=== PATIENT | female | born 1960 | race African-American/Black ===

== ENCOUNTER 2017-03-25 15:43 | Emergency (ER) | payer OTHER ==
[2017-03-25 15:57] VITALS: BMI 43.5
--- NOTE | 2017-03-25 19:51 | PDOC ---
History of Present Illness - General History Source: Patient Exam Limitations: No Limitations - History of Present Illness Initial Comments: 03/25/17 20:40 The patient is a 57 year old female, with a significant past medical history of Morbid Obesity, HTN, DM, Asthma, Atrial fibrillation, Chronic sinusitis, CHF, HLD, Diabetic neuropathy, GERD, and depression who presents to the emergency department with fever, cough and chest tightness for the past 2 days. Patient reports productive cough and increased mucous production. Patient also complains of chest tightness with associated SOB and rapid heart rate. Patient reports she has been experiencing rapid Afib and presents to the ED for further evaluation. Note, patient has been taking Tylenol with no relief. She denies headache or dizziness. She denies fever, chills, abdominal pain, nausea, vomit, diarrhea or constipation. She denies dysuria, frequency, urgency or hematuria. Patient denies sick contacts or recent travel. Social History: Half pack cigarettes per day. No alcohol or drugs reported Past Surgical History: s/p cholecystectomy, left shoulder rotator repair <Elisha Fiore - Last Filed: 03/25/17 20:40> - General History Source: Patient <Cristhian Patton - Last Filed: 03/25/17 22:47> - General Chief Complaint: Respiratory Stated Complaint: FEVER, COUGHING BLOOD Time Seen by Provider: 03/25/17 19:45 Past History <Elisha Fiore - Last Filed: 03/25/17 20:40> - Past Medical History Anemia: No Asthma: Yes Cancer: No Cardiac Disorders: Yes (TACYCARDIA) CVA: No COPD: (ALLERGIC RHINITIS) CHF: No Dementia: No Diabetes: Yes (TYPE 2 with neuropathy) GI Disorders: Yes (GERD; HEMORRHOIDS;POLYPS) Disorders: No HTN: Yes Hypercholesterolemia: Yes Liver Disease: No Seizures: No Thyroid Disease: No - Surgical History Abdominal Surgery: No Cardiac Surgery: No Cholecystectomy: Yes Lung Surgery: No Neurologic Surgery: No Orthopedic Surgery: Yes (L shoulder rotator repair) - Suicide/Smoking/Psychosocial Hx Smoking History: Current every day smoker Have you smoked in the past 12 months: No Number of Cigarettes Smoked Daily: 10 Information on smoking cessation initiated: No 'Breaking Loose' booklet given: 07/04/15 Hx Alcohol Use: Yes Drug/Substance Use Hx: No Substance Use Type: None Hx Substance Use Treatment: No <Cristhian Patton - Last Filed: 03/25/17 22:47> - Past Medical History Allergies/Adverse Reactions: Allergies Allergy/AdvReac Type Severity Reaction Status Date / Time strawberry Allergy Intermediate Rash Verified 04/03/16 20:27 moxifloxacin HCl Allergy Mild Rash Verified 04/03/16 20:27 [From Avelox] [place]-3 acid Ethyl Esters Allergy Verified 04/03/16 20:27 [From Lovaza] duloxetine HCl AdvReac fainting Verified 04/03/16 20:27 [From Cymbalta] Home Medications: Ambulatory Orders Albuterol Sulfate Inhaler - [Ventolin HFA Inhaler -] 2 inh IH Q4H PRN 01/31/14 Aspirin [ASA -] 81 mg PO DAILY 01/31/14 Enalapril Maleate [Vasotec -] 2.5 mg PO BID 01/31/14 Ergocalciferol [Drisdol -] 50,000 unit PO WEEKLY 01/31/14 Glipizide 5 mg PO DAILY 01/31/14 Sertraline HCl [Zoloft] 200 mg PO HS 01/31/14 Simvastatin [Zocor -] 40 mg PO HS 01/31/14 Sitagliptin Phos/Metformin HCl [Janumet 50-500 mg Tablet] 1 tab PO BID 01/31/14 Cyclobenzaprine HCl [Flexeril] 5 mg PO BID 06/28/14 Ascorbic Acid [Vitamin C -] 500 mg PO DAILY 01/02/15 Metoprolol Tartrate [Lopressor -] 50 mg PO BID 04/03/15 Montelukast Na [Singulair -] 10 mg PO HS 11/14/15 Nifedipine [Procardia Xl] 30 mg PO DAILY 12/11/15 Bumetanide [Bumex -] 2 mg PO DAILY 04/03/16 Folic Acid 1 mg PO DAILY 04/03/16 Budesonide/Formeterol Fumarate [SYMBICORT 160/4.5mcg -] 1 inh PO DAILY 05/09/16 Oxycodone HCl/Acetaminophen [Percocet 10-325 mg Tablet] 1 each PO TID PRN #90 tablet MDD 3 03/18/17 Azithromycin [Zithromax -] 250 mg PO UTDICT #6 tab 03/25/17 Cholecalciferol (Vitamin D3) [Vitamin D3 -] 1,000 unit PO DAILY 03/25/17 Review of Systems - Review of Systems Able to Perform ROS?: Yes Comments:: 03/25/17 20:40 CONSTITUTIONAL: Absent: fever, chills, diaphoresis, generalized weakness, malaise, loss of appetite HEENT: +nasal congestion Absent: rhinorrhea, throat pain, throat swelling, difficulty swallowing, mouth swelling, ear pain, eye pain, visual Changes CARDIOVASCULAR: +chest tightness. Absent: syncope, palpitations, irregular heart rate, lightheadedness, peripheral edema RESPIRATORY: +cough +SOB. Absent: dyspnea with exertion, orthopnea, wheezing, stridor, hemoptysis GASTROINTESTINAL: Absent: abdominal pain, abdominal distension, nausea, vomiting, diarrhea, constipation, melena, hematochezia GENITOURINARY: Absent: dysuria, frequency, urgency, hesitancy, hematuria, flank pain, genital pain MUSCULOSKELETAL: Absent: myalgia, arthralgia, joint swelling SKIN: Absent: rash, itching, pallor HEMATOLOGIC/IMMUNOLOGIC: Absent: easy bleeding, easy bruising, lymphadenopathy, frequent infections ENDOCRINE: Absent: unexplained weight gain, unexplained weight loss, heat intolerance, cold intolerance NEUROLOGIC: Absent: headache, focal weakness or paresthesias, dizziness, unsteady gait, seizure, mental status changes, bladder or bowel incontinence PSYCHIATRIC: Absent: anxiety, depression, suicidal or homicidal ideation, hallucinations. <Elisha Fiore - Last Filed: 03/25/17 20:40> *Physical Exam - Vital Signs Last Vital Signs Temp Pulse Resp BP Pulse Ox 98.5 F 112 H 20 132/69 100 03/25/17 15:52 03/25/17 15:52 03/25/17 15:52 03/25/17 15:52 03/25/17 15:52 - Physical Exam Comments: 03/25/17 20:40 GENERAL: Well developed, well nourished. Awake and alert. + Mild distress. HEENT: Normocephalic, atraumatic. PERRLA, EOMI. No conjunctival pallor. Sclerae are non -icteric. Moist mucous membranes. Oropharynx is clear. +Nasal congestion. NECK: Supple. Full ROM. No JVD. Carotid pulses 2+ and symmetric, without bruits. No thyromegaly. No lymphadenopathy. CARDIOVASCULAR:+ Tachycardic. +Irregularly irregular. No murmurs, rubs, or gallops. Distal pulses are 2+ and symmetric. PULMONARY: +Decreased breath sounds bilaterally. No evidence of respiratory distress. Lungs clear to auscultation bilaterally. No wheezing, rales or rhonchi. ABDOMINAL: +Obese. Soft. Non-tender. Non-distended. No rebound or guarding. No organomegaly. Normoactive bowel sounds. MUSCULOSKELETAL Normal range of motion at all joints. No bony deformities or tenderness. No CVA tenderness. EXTREMITIES: No cyanosis. No clubbing. No edema. No calf tenderness. SKIN: Warm and dry. Normal capillary refill. No rashes. No jaundice. NEUROLOGICAL: Alert, awake, appropriate. Cranial nerves 2-12 intact. No deficits to light touch and temperature in face, upper extremities and lower extremities. No motor deficits in the in face, upper extremities and lower extremities. Normoreflexic in the upper and lower extremities. Normal speech. Toes are downgoing bilaterally. Gait is normal without ataxia. PSYCHIATRIC: Cooperative. Good eye contact. Appropriate mood and affect. <Elisha Fiore - Last Filed: 03/25/17 20:40> - Vital Signs Last Vital Signs Temp Pulse Resp BP Pulse Ox 98.5 F 112 H 20 132/69 100 03/25/17 15:52 03/25/17 15:52 03/25/17 15:52 03/25/17 15:52 03/25/17 15:52 <Cristhian Patton - Last Filed: 03/25/17 22:47> Heart Score/ECG Review #1 03/25/17 20:41 ECG Reviewed by Abdi Vega. rate 117 bpm Atrial fibrillation with RVR with premature ventricular or aberrantly conducted complexes Abnormal ECG <Elisha Fiore - Last Filed: 03/25/17 20:40> ED Treatment Course - Medications Given in the ED: ED Medications Discontinued Medications Generic Name Dose Route Start Last Admin Trade Name Freq PRN Reason Stop Dose Admin Magnesium Sulfate 1 gm 03/25/17 20:16 03/25/17 20:32 Magnesium Sulfate IVPB 03/25/17 20:17 1 gm ONCE ONE Administration Methylprednisolone Sodium Succinate 125 mg 03/25/17 20:14 03/25/17 20:32 Solu-Medrol - IVPB 03/25/17 20:15 125 mg ONCE ONE Administration <Elisha Fiore - Last Filed: 03/25/17 20:40> - LABORATORY CBC & Chemistry Diagram: 03/25/17 20:00 03/25/17 20:00 <Cristhian Patton - Last Filed: 03/25/17 22:47> Medical Decision Making - Medical Decision Making 03/25/17 22:43 Dr. Patton: The scribe's documentation has been prepared under my direction and personally reviewed by me in its entirery. I confirm that the note above accurately reflects all work, treatment, procedures, and medical decision making performed by me. <Cristhian Patton - Last Filed: 03/25/17 22:47> *DC/Admit/Observation/Transfer - Attestations Scribe Attestion: 03/25/17 20:41 Documentation prepared by Elisha Fiore, acting as medical imaging technician for Cristhian Patton DO. <Elisha Fiore - Last Filed: 03/25/17 20:40> - Discharge Dispostion Admit: No <Cristhian Patton - Last Filed: 03/25/17 22:47> Diagnosis at time of Disposition: Fever Qualifiers: Fever type: unspecified Qualified Code(s): R50.9 - Fever, unspecified Acute bronchitis Qualifiers: Bronchitis organism: unspecified organism Qualified Code(s): J20.9 - Acute bronchitis, unspecified - Discharge Dispostion Disposition: HOME Condition at time of disposition: Stable - Prescriptions Prescriptions: Azithromycin [Zithromax -] 250 mg PO UTDICT #6 tab - Referrals Referrals: Karen James MD [Primary Care Provider] - - Patient Instructions Printed Discharge Instructions: DI for Acute Bronchitis Additional Instructions: Please follow up with your doctor for follow up by Thursday. Drink plenty of fluids. Take medication as directed. Tylenol or Motrin for fever. - Post Discharge Activity Forms/Work/School Notes: Back to Work
[2017-03-25] MEDS ORDERED: SODIUM CHLORIDE 1,000 ML IV STA (19:52)
[2017-03-25] MEDS ORDERED: methylPREDNISolone NA SUCC 125 MG/2 ML VIAL IVPB ONE (20:14)
[2017-03-25] MEDS ORDERED: ALBUTEROL SO4 2.5/IPRATROPIUM 0.5 INH SOL 3 ML VIAL.NEB. NEB STA (20:15)
[2017-03-25] MEDS ORDERED: MAGNESIUM SULF 50% (8.12 MEQ/2 ML-1 GM VIAL) IVPB ONE (20:16)
[2017-03-25] MEDS ORDERED: MAGNESIUM SULF 50% (8.12 MEQ/2 ML-1 GM VIAL) ONE (20:26)
[2017-03-25] MEDS ORDERED: methylPREDNISolone NA SUCC 125 MG/2 ML VIAL ONE (20:27)
[2017-03-25 20:44] LABS: EOSINOPHIL 0.7 % (0-4.5); MCH 30.9 pg (25.7-33.7); MCHC 33.3 g/dl (32.0-36.0); MEAN CELL VOLUME 92.7 fl (80-96); MEAN PLT VOLUME 10.3 fl (7.5-11.1); NEUTROPHILS 58.6 % (42.8-82.8); PLATELET COUNT 226 K/MM3 (134-434); RDW 15.7 % (11.6-15.6); WHITE BLOOD COUNT 9.8 K/mm3 (4.0-10.0)
[2017-03-25 20:48] LABS: URINE APPEARANCE CLEAR; URINE BILIRUBIN NEGATIVE (NEGATIVE); URINE BLOOD NEGATIVE (NEGATIVE); URINE COLOR YELLOW; URINE GLUCOSE (UA) NEGATIVE (NEGATIVE); URINE KETONE NEGATIVE (NEGATIVE); URINE NITRITE NEGATIVE (NEGATIVE); URINE PROTEIN NEGATIVE (NEGATIVE); URINE UROBILINOGEN NEGATIVE mg/dL (0.2-1.0)
[2017-03-25 20:57] LABS: INR 1.2 (0.82-1.09); PROTHROMBIN TIME (PATIENT) 13.6 SEC (9.98-11.88)
[2017-03-25 21:09] LABS: ALBUMIN 3.5 g/dl (3.4-5.0); ALK PHOS 119 U/L (45-117); ANION GAP 7 (8-16); BILIRUBIN,TOTAL 0.5 mg/dL (0.2-1.0); CALCIUM 9.3 mg/dL (8.5-10.1); CO2 28 mmol/L (21-32); CPK 96 IU/L (26-192); CREATININE 0.9 mg/dL (0.55-1.02); GLUCOSE,RANDOM 134 mg/dL (74-106); MAGNESIUM 1.7 mg/dL (1.8-2.4); SGOT/AST 29 U/L (15-37); SGPT/ALT 35 U/L (12-78); TOT PROT 8.2 g/dl (6.4-8.2)
[2017-03-25 21:11] LABS: TROPONIN I < 0.02 ng/ml (0.00-0.05)
[2017-03-25] MEDS ORDERED: AZITHROMYCIN 250 MG TABLET PO STA (21:52)
[2017-03-25] MEDS ORDERED: AZITHROMYCIN 250 MG TABLET ONE (21:56)
[2017-03-25] MEDS ORDERED: CEFTRIAXONE 50 ML ONE (21:56)
[2017-03-25 22:49] LABS: URINE LEUK ESTERASE Negative (NEGATIVE)
[2017-03-25 22:55] VITALS: BP 129/71; PULSE 96; TEMP 97.5
--- NOTE | 2017-03-26 13:06 | EKG ---
Test Reason : Blood Pressure : / mmHG Vent. Rate : 117 BPM Atrial Rate : 110 BPM P-R Int : 000 ms QRS Dur : 070 ms QT Int : 334 ms P-R-T Axes : 000 066 091 degrees QTc Int : 465 ms ATRIAL FIBRILLATION WITH RAPID VENTRICULAR RESPONSE WITH PREMATURE VENTRICULAR OR ABERRANTLY CONDUCTED COMPLEXES ABNORMAL ECG WHEN COMPARED WITH ECG OF 05-JAN-2014 14:24, ATRIAL FIBRILLATION HAS REPLACED SINUS RHYTHM Confirmed by WILMA DESAI MD ([id number]) on 03/26/2017 1:05:32 PM Referred By: Confirmed By:WILMA DESAI MD
== END 2017-03-25 22:55 | disposition home or self-care (01) ==
LOC: JER 15:43
PROC: 3E0337Z Introduction of Electrolytic and Water Balance Substance into Peripheral Vein, Percutaneous Approach (ICD-10-PCS; principal; 2017-03-25)
PROC: 3E0F7GC Introduction of Other Therapeutic Substance into Respiratory Tract, Via Natural or Artificial Opening (ICD-10-PCS; 2017-03-25)
PROC: 3E03329 Introduction of Other Anti-infective into Peripheral Vein, Percutaneous Approach (ICD-10-PCS; 2017-03-25)
PROC: 3E0333Z Introduction of Anti-inflammatory into Peripheral Vein, Percutaneous Approach (ICD-10-PCS; 2017-03-25)
PROC: 3E033GC Introduction of Other Therapeutic Substance into Peripheral Vein, Percutaneous Approach (ICD-10-PCS; 2017-03-25)
DX: J20.9 Acute bronchitis, unspecified (principal)
CPT/HCPCS: 36415; 71020-TC; 80053; 81003; 82550; 83605; 83735; 83880; 84484; 85025; 85379; 85610; 87040; 87086; 87804; 93005; 93010; 99284-25

== ENCOUNTER 2017-04-09 22:16 | Inpatient (IN) | payer OTHER ==
[2017-04-09] MEDS ORDERED: ACETAMINOPHEN 500 MG TABLET (FP) PO ONE (23:17)
[2017-04-09] MEDS ORDERED: ACETAMINOPHEN 325 MG TABLET (FP) ONE (23:26)
--- NOTE | 2017-04-10 00:06 | PDOC ---
History of Present Illness - General Chief Complaint: Cold Symptoms Stated Complaint: FEVER Time Seen by Provider: 04/09/17 23:03 History Source: Patient, Family (Son) Exam Limitations: No Limitations - History of Present Illness Initial Comments: 04/10/17 00:01 57yo Female patient with extensive PmHx: Morbid Obesity, A-fib, Asthma, GERD, depression, HLD, CHF, DM, HTN, Diabetic Neuropathy and Chronic sinusitis presents to ED c/o cough, fever, weakness, decreased appetite, and SOB since this past Thursday. Patient was recently seen in this ED for similar symptoms on 03/25/2017, and Dx: Bronchitis; sent home on Z-. Patient reports improvement in symptoms, but return worse on Thursday while cleaning her house. Associated Chills and back pain. Patient denies CP, Abd pain, n/v/d, constipation, confusion, or any other complaints at this time. Humphrey (Son) . Timing/Duration: reports: week Severity: reports: moderate Episode Description: See HPI Possible Cause: Yes: occasional episodes Modifying Factors: improves with: albuterol inhaler, albuterol nebulizer, antibiotics, rest Associated Symptoms: reports: cough, shortness of breath Past History - Travel Traveled outside of the country in the last 30 days: No Close contact w/someone who was outside of country & ill: No - Past Medical History Allergies/Adverse Reactions: Allergies Allergy/AdvReac Type Severity Reaction Status Date / Time strawberry Allergy Intermediate Rash Verified 04/09/17 22:36 moxifloxacin HCl Allergy Mild Rash Verified 04/09/17 22:36 [From Avelox] [place]-3 acid Ethyl Esters Allergy Verified 04/09/17 22:36 [From Lovaza] duloxetine HCl AdvReac fainting Verified 04/09/17 22:36 [From Cymbalta] Home Medications: Ambulatory Orders Albuterol Sulfate Inhaler - [Ventolin HFA Inhaler -] 2 inh IH Q4H PRN 01/31/14 Aspirin [ASA -] 81 mg PO DAILY 01/31/14 Enalapril Maleate [Vasotec -] 2.5 mg PO BID 01/31/14 Ergocalciferol [Drisdol -] 50,000 unit PO WEEKLY 01/31/14 Glipizide 5 mg PO DAILY 01/31/14 Sertraline HCl [Zoloft] 200 mg PO HS 01/31/14 Simvastatin [Zocor -] 40 mg PO HS 01/31/14 Sitagliptin Phos/Metformin HCl [Janumet 50-500 mg Tablet] 1 tab PO BID 01/31/14 Cyclobenzaprine HCl [Flexeril] 5 mg PO BID 06/28/14 Ascorbic Acid [Vitamin C -] 500 mg PO DAILY 01/02/15 Metoprolol Tartrate [Lopressor -] 50 mg PO BID 04/03/15 Montelukast Na [Singulair -] 10 mg PO HS 11/14/15 Nifedipine [Procardia Xl] 30 mg PO DAILY 12/11/15 Bumetanide [Bumex -] 2 mg PO DAILY 04/03/16 Folic Acid 1 mg PO DAILY 04/03/16 Budesonide/Formeterol Fumarate [SYMBICORT 160/4.5mcg -] 1 inh PO DAILY 05/09/16 Oxycodone HCl/Acetaminophen [Percocet 10-325 mg Tablet] 1 each PO TID PRN #90 tablet MDD 3 03/18/17 Azithromycin [Zithromax -] 250 mg PO UTDICT #6 tab 03/25/17 Cholecalciferol (Vitamin D3) [Vitamin D3 -] 1,000 unit PO DAILY 03/25/17 Anemia: No Asthma: Yes Cancer: No Cardiac Disorders: Yes (TACYCARDIA) CVA: No COPD: Yes (ALLERGIC RHINITIS) CHF: No Dementia: No Diabetes: Yes (TYPE 2 with neuropathy) GI Disorders: Yes (GERD; HEMORRHOIDS;POLYPS) Disorders: No HTN: Yes Hypercholesterolemia: Yes Liver Disease: No Seizures: No Thyroid Disease: No - Surgical History Abdominal Surgery: No Cardiac Surgery: No Cholecystectomy: Yes Lung Surgery: No Neurologic Surgery: No Orthopedic Surgery: Yes (L shoulder rotator repair) - Suicide/Smoking/Psychosocial Hx Smoking History: Current every day smoker Have you smoked in the past 12 months: Yes Number of Cigarettes Smoked Daily: 20 Information on smoking cessation initiated: No 'Breaking Loose' booklet given: 07/04/15 Hx Alcohol Use: No Drug/Substance Use Hx: No Substance Use Type: None Hx Substance Use Treatment: No Respiratory Specific PMHX - Complaint Specific PMHX Angina: No Bronchitis: Yes Pneumonia: No Pulmonary Embolus: No TB (Tuberculosis): No Review of Systems - Review of Systems Able to Perform ROS?: Yes Is the patient limited Urdu proficient: No Constitutional: Yes: Chills, Fever, Weakness Respiratory: Yes: Cough, Shortness of Breath, Productive cough. No: Stridor, Wheezing Cardiac (ROS): No: Chest Pain, Chest Tightness ABD/GI: No: Diarrhea, Nausea, Vomiting All Other Systems: Reviewed and Negative *Physical Exam - Vital Signs Last Vital Signs Temp Pulse Resp BP Pulse Ox 100.2 F H 108 H 22 159/94 88 L 04/09/17 22:34 04/09/17 22:34 04/09/17 22:34 04/09/17 22:34 04/09/17 22:34 - Physical Exam General Appearance: Yes: Nourished, Appropriately Dressed, Mild Distress. No: Apparent Distress, Moderate Distress, Severe Distress HEENT: positive: EOMI, BERT, Normal ENT Inspection, Normal Voice, Symmetrical, TMs Normal, Pharynx Normal. negative: Pharyngeal Erythema, Tonsillar Exudate, Tonsillar Erythema, TM Bulging, TM Dull, TM Erythema Neck: positive: Trachea midline, Supple. negative: Rigid, Stridor, Lymphadenopathy (R), Lymphadenopathy (L), Rigidity, Tender lateral, Tender midline Respiratory/Chest: positive: Decreased Breath Sounds, Crackles. negative: Chest Tender, Lungs Clear, Normal Breath Sounds, Respiratory Distress, Accessory Muscle Use, Labored Respiration, Paradoxal Breathing, Stridor, Wheezing Cardiovascular: positive: Regular Rhythm, Tachycardia Gastrointestinal/Abdominal: positive: Normal Bowel Sounds, Soft. negative: Distended, Guarding, Rebound, Tenderness Musculoskeletal: positive: Normal Inspection. negative: CVA Tenderness, Vertebral Tenderness Extremity: positive: Normal Capillary Refill, Normal Inspection, Normal Range of Motion. negative: Pedal Edema, Swelling, Calf Tenderness, Erythema, Inflammation Integumentary: positive: Normal Color, Dry, Warm. negative: Erythema, Diaphoresis, Moist, Hives, Rash, Swelling Neurologic: positive: art specialist II-XII NML intact, Fully Oriented, Alert, Normal Mood/ Affect, Normal Response, Motor Strength 5/5 ED Treatment Course - LABORATORY CBC & Chemistry Diagram: 04/10/17 00:10 04/10/17 00:10 - RADIOLOGY Radiology Studies Ordered: Category Date Time Status CHEST CT WITH CONTRAST [CT] Stat CT Scan 04/09/17 23:25 Ordered - Medications Given in the ED: ED Medications Discontinued Medications Generic Name Dose Route Start Last Admin Trade Name Corinne PRN Reason Stop Dose Admin Acetaminophen 1,000 mg 04/09/17 23:17 04/09/17 23:51 Tylenol - PO 04/09/17 23:18 1,000 mg ONCE ONE Administration *DC/Admit/Observation/Transfer Diagnosis at time of Disposition: Acute respiratory failure with hypoxia Pneumonia Qualifiers: Pneumonia type: due to unspecified organism Laterality: bilateral Lung location : lower lobe of lung Qualified Code(s): J18.9 - Pneumonia, unspecified organism ; J18.9 - Pneumonia, unspecified organism - Discharge Dispostion Condition at time of disposition: Fair Admit: Yes - Referrals Referrals: Karen James MD [Primary Care Provider] -
[2017-04-10] MEDS ORDERED: ALBUTEROL SO4 2.5/IPRATROPIUM 0.5 INH SOL 3 ML VIAL.NEB. NEB ONE ×2 (00:07→00:29)
[2017-04-10] MEDS ORDERED: methylPREDNISolone NA SUCC 125 MG/2 ML VIAL IVPUSH ONE (00:07)
[2017-04-10 00:18] LABS: BASOPHIL 1.1 % (0-2.0); EOSINOPHIL 0.4 % (0-4.5); MCH 30.5 pg (25.7-33.7); MCHC 33.9 g/dl (32.0-36.0); MEAN CELL VOLUME 90.2 fl (80-96); MEAN PLT VOLUME 8.6 fl (7.5-11.1); PLATELET COUNT 224 K/MM3 (134-434); RDW 15.7 % (11.6-15.6); WHITE BLOOD COUNT 8.6 K/mm3 (4.0-10.0)
[2017-04-10] MEDS ORDERED: methylPREDNISolone NA SUCC 125 MG/2 ML VIAL ONE (00:30)
[2017-04-10 00:47] LABS: ALBUMIN 3.1 g/dl (3.4-5.0); ANION GAP 11 (8-16); CALCIUM 8.2 mg/dL (8.5-10.1); CO2 23 mmol/L (21-32); CREATININE 0.6 mg/dL (0.55-1.02); GLUCOSE,RANDOM 135 mg/dL (74-106); SGOT/AST 14 U/L (15-37); SGPT/ALT 38 U/L (12-78)
[2017-04-10 00:50] LABS: ALK PHOS 125 U/L (45-117); BILIRUBIN,TOTAL 0.9 mg/dL (0.2-1.0); TOT PROT 7.1 g/dl (6.4-8.2)
--- NOTE | 2017-04-10 01:57 | PDOC ---
*Physical Exam - Vital Signs Last Vital Signs Temp Pulse Resp BP Pulse Ox 100.2 F H 108 H 22 159/94 88 L 04/09/17 22:34 04/09/17 22:34 04/09/17 22:34 04/09/17 22:34 04/09/17 22:34 - Physical Exam Comments: 04/10/17 01:47 Low-grade fever, slight tachycardia, relative hypoxia Agree with remainder exam ED Treatment Course - LABORATORY CBC & Chemistry Diagram: 04/10/17 00:10 04/10/17 00:10 - ADDITIONAL ORDERS Additional order review: Laboratory Results 04/10/17 04/10/17 04/10/17 00:13 00:13 00:10 Sodium 141 Potassium 3.4 L Chloride 107 Carbon Dioxide 23 Anion Gap 11 BUN 7 D Creatinine 0.6 D Creat Clearance w eGFR > 60 Random Glucose 135 H Lactic Acid 0.9 Calcium 8.2 L Total Bilirubin 0.9 D AST 14 L D ALT 38 Alkaline Phosphatase 125 H Troponin I 0.03 B-Natriuretic Peptide 846.08 H Total Protein 7.1 Albumin 3.1 L 04/10/17 00:10 RBC 4.09 MCV 90.2 MCHC 33.9 RDW 15.7 H MPV 8.6 D Neutrophils % 76.0 D Lymphocytes % 17.6 D Monocytes % 4.9 Eosinophils % 0.4 Basophils % 1.1 - Medications Given in the ED: ED Medications Discontinued Medications Generic Name Dose Route Start Last Admin Trade Name Freq PRN Reason Stop Dose Admin Acetaminophen 1,000 mg 04/09/17 23:17 04/09/17 23:51 Tylenol - PO 04/09/17 23:18 1,000 mg ONCE ONE Administration Albuterol/Ipratropium 1 amp 04/10/17 00:07 04/10/17 00:31 Duoneb - NEB 04/10/17 00:08 1 amp ONCE ONE Administration Methylprednisolone Sodium Succinate 125 mg 04/10/17 00:07 04/10/17 00:31 Solu-Medrol - IVPUSH 04/10/17 00:08 125 mg ONCE ONE Administration Medical Decision Making - Medical Decision Making 04/10/17 01:47 Patient seen and evaluated with the nurse practitioner. I agree with the overall evaluation, assessment, and management with the following summary of visit: 57-year-old female with multiple medical problems including asthma and CHF presents with worsening dyspnea in the setting of recently being treated for bronchitis with a Z-Sharath. Respiratory workup including labs, chest CT, EKG nebs, steroids, antipyretics Likely admission *DC/Admit/Observation/Transfer Diagnosis at time of Disposition: Asthma, Acute respiratory failure with hypoxia - Discharge Dispostion Condition at time of disposition: Fair
[2017-04-10] MEDS ORDERED: cefTRIAXone 1 GM/50 ML BAG (PRE-DOCKED) IVPB ONE (03:14)
[2017-04-10] MEDS ORDERED: AZITHROMYCIN IVPB 500 MG in DEXTROSE 5%-WATER - 250 ML IVPB ONE (03:14)
[2017-04-10] MEDS ORDERED: FUROSEMIDE 40 MG/4 ML INJECTABLE VIAL IVPUSH ONE (03:15)
[2017-04-10] MEDS ORDERED: AZITHROMYCIN IVPB 250 ML IVPB ONE (03:20)
[2017-04-10] MEDS ORDERED: cefTRIAXone SODIUM 1 GM VIAL ONE (03:21)
[2017-04-10] MEDS ORDERED: FUROSEMIDE 40 MG/4 ML INJECTABLE VIAL ONE (03:21)
--- NOTE | 2017-04-10 06:41 | HP ---
CHIEF COMPLAINT: SOB, Cough PCP: Dr Karen Clemente HISTORY OF PRESENT ILLNESS: This is a 57 y/o woman with a significant past medical history of: HTN, HLD, NIDDM, Afib (no AC), Asthma, MERT, Morbid Obesity. Who presents to the ED with increased SOB, DUARTE, cough, fever, and chills x several days worse now. Patient reports cleaning out her home for inspection, with increased exposure to dust. Patient reports using non-toxic hand hardener and keeping the room well ventilated. However, she notes her breathing became more labored last night forcing her to come in. Patient was recently treated for Bronchitis 03/22 completed Z-jie. Patient denies dizziness, CP, palpitations, AP, N/V/D, constipation, dysuria. Patient reports being up to date with- Influenza Vaccine, Pnuemoccal Vaccines. ER course was notable for: (1) Vital Signs- T Max 100.2, P 108, Spo2 88% (2) CT Chest- Bilateral lower lobe pneumonia (3) BNP 846 Recent Travel: None PAST MEDICAL HISTORY: See HPI PAST SURGICAL HISTORY: Social History: Smoking: Current Smoker Alcohol: None Drugs: None Lives with family, Independent Family History: Allergies strawberry Allergy (Intermediate, Verified 04/09/17 22:36) Rash moxifloxacin HCl [From Avelox] Allergy (Mild, Verified 04/09/17 22:36) Rash [place]-3 acid Ethyl Esters [From Lovaza] Allergy (Verified 04/09/17 22:36) duloxetine HCl [From Cymbalta] Adverse Reaction (Verified 04/09/17 22:36) fainting HOME MEDICATIONS: Home Medications Medication Instructions Recorded Albuterol Sulfate Inhaler - 2 inh IH Q4H PRN 01/31/14 [Ventolin HFA Inhaler -] Aspirin [ASA -] 81 mg PO DAILY 01/31/14 Enalapril Maleate [Vasotec -] 2.5 mg PO BID 01/31/14 Ergocalciferol [Drisdol -] 50,000 unit PO WEEKLY 01/31/14 Glipizide 5 mg PO DAILY 01/31/14 Sertraline HCl [Zoloft] 200 mg PO HS 01/31/14 Simvastatin [Zocor -] 40 mg PO HS 01/31/14 Sitagliptin Phos/Metformin HCl 1 tab PO BID 01/31/14 [Janumet 50-500 mg Tablet] Cyclobenzaprine HCl [Flexeril] 5 mg PO BID 06/28/14 Ascorbic Acid [Vitamin C -] 500 mg PO DAILY 01/02/15 Metoprolol Tartrate [Lopressor -] 50 mg PO BID 04/03/15 Montelukast Na [Singulair -] 10 mg PO HS 11/14/15 Nifedipine [Procardia Xl] 30 mg PO DAILY 12/11/15 Bumetanide [Bumex -] 2 mg PO DAILY 04/03/16 Folic Acid 1 mg PO DAILY 04/03/16 Budesonide/Formeterol Fumarate 1 inh PO DAILY 05/09/16 [SYMBICORT 160/4.5mcg -] Oxycodone HCl/Acetaminophen 1 each PO TID PRN #90 tablet MDD 3 03/18/17 [Percocet 10-325 mg Tablet] Azithromycin [Zithromax -] 250 mg PO UTDICT #6 tab 03/25/17 Cholecalciferol (Vitamin D3) 1,000 unit PO DAILY 03/25/17 [Vitamin D3 -] REVIEW OF SYSTEMS CONSTITUTIONAL: fever, chills Absent: diaphoresis, generalized weakness, malaise, loss of appetite, weight change HEENT: Absent: rhinorrhea, nasal congestion, throat pain, throat swelling, difficulty swallowing, mouth swelling, ear pain, eye pain, visual changes CARDIOVASCULAR: peripheral edema Absent: chest pain, syncope, palpitations, irregular heart rate, lightheadedness RESPIRATORY: cough, shortness of breath, dyspnea with exertion Absent: orthopnea, wheezing, stridor, hemoptysis GASTROINTESTINAL: Absent: abdominal pain, abdominal distension, nausea, vomiting, diarrhea, constipation, melena, hematochezia GENITOURINARY: Absent: dysuria, frequency, urgency, hesitancy, hematuria, flank pain, genital pain MUSCULOSKELETAL: Absent: myalgia, arthralgia, joint swelling, back pain, neck pain SKIN: Absent: rash, itching, pallor HEMATOLOGIC/IMMUNOLOGIC: Absent: easy bleeding, easy bruising, lymphadenopathy, frequent infections ENDOCRINE: Absent: unexplained weight gain, unexplained weight loss, heat intolerance, cold intolerance NEUROLOGIC: Absent: headache, focal weakness or paresthesias, dizziness, unsteady gait, seizure, mental status changes, bladder or bowel incontinence PSYCHIATRIC: Absent: anxiety, depression, suicidal or homicidal ideation, hallucinations. PHYSICAL EXAMINATION Vital Signs - 24 hr 04/10/17 04/10/17 04:37 06:00 Temperature 97.5 F L 97.4 F L Pulse Rate [ 104 H 104 H Left Radial] Respiratory 18 18 Rate Blood Pressure 148/90 160/93 [Left Arm] O2 Sat by Pulse 95 95 Oximetry (%) GENERAL: Awake, alert, and fully oriented, in mild resp distress. HEAD: Normal with no signs of trauma. EYES: Pupils equal, round and reactive to light, extraocular movements intact, sclera anicteric, conjunctiva clear. No lid lag. EARS, NOSE, THROAT: Ears normal, nares patent, oropharynx clear without exudates. Dry mucous membranes. NECK: Normal range of motion, supple without lymphadenopathy, JVD, or masses. LUNGS: Breath sounds diminished bilaterally. + wheezes, +crackles. No accessory muscle use. HEART: Irregular rate and rhythm, normal S1 and S2 without murmur, rub or gallop. ABDOMEN: Obese, Soft, nontender, not distended, normoactive bowel sounds, no guarding, no rebound, no masses. No hepatomegaly or splenomegaly. MUSCULOSKELETAL: Normal range of motion at all joints. No bony deformities or tenderness. No CVA tenderness. UPPER EXTREMITIES: 2+ pulses, warm, well-perfused. No cyanosis. No clubbing. No peripheral edema. LOWER EXTREMITIES: 2+ pulses, warm, well-perfused. No calf tenderness. +2 B/L peripheral edema. NEUROLOGICAL: Cranial nerves II-XII intact. Normal speech. Normal gait. PSYCHIATRIC: Cooperative. Good eye contact. Appropriate mood and affect. SKIN: Warm, dry, normal turgor, no rashes or lesions noted, normal capillary refill. ASSESSMENT/PLAN: This is a 57 y/o woman with a PMHx of: HTN, HLD, NIDDM, Afib (no AC), CHF, Asthma, MERT, Severe Obesity. Admitted for Bilateral Lower Pneumonia secondary to Failed Outpatient Therapy, Acute Respiratory Failure, Hypoxia for further evaluation of their emergent condition. Plan: 1. Pneumonia - Failed Outpatient Therapy - CT Chest- B/L lower lobe infiltrates, No PE - [id number] 0 - Blood Cultures-pending - Ordered Influenza Swab-pending - Legionella- pending - Ceftriaxone, Azithromycin given in ED - Will continue Ceftriaxone and add Doxycycline for anti-MRSA, anti pseudomonal coverage, until culture results - Appreciate ID Consult - Appreciate Pulmonology Consult - Continue O2 - Monitor vitals - Repeat CBCD, BMP tomorrow 2. Acute Respiratory Failure//Hypoxia - See above - ABG pending - O2 3. Asthma Exacerbation - Duonebs - Glucocorticoids - Spo2 - Peak flow 3. HTN//HLD//Afib//CHF - Continue home meds - EKG-pending 4. NIDDM - BGMs - ISS - Hold home med 2/2 IV contrast for CTA - Monitor renal function 5. MERT - CPAP HS 6. FEN - Tolerates PO fluids - Replete lytes prn - Low Na, Diabetic Diet 7. DVT Prophylaxis - OOB - Heparin SQ Code Status: Full Code Dispo: Requires Inpatient Care Problem List - Problem (1) Pneumonia Code(s): J18.9 - PNEUMONIA, UNSPECIFIED ORGANISM Qualifiers: Pneumonia type: due to unspecified organism Laterality: bilateral Lung location: lower lobe of lung Qualified Code(s): J18.9 - Pneumonia, unspecified organism; J18.9 - Pneumonia, unspecified organism (2) Sepsis Code(s): A41.9 - SEPSIS, UNSPECIFIED ORGANISM (3) Acute respiratory failure with hypoxia Code(s): J96.01 - ACUTE RESPIRATORY FAILURE WITH HYPOXIA (4) Fever Code(s): R50.9 - FEVER, UNSPECIFIED (5) Asthma Code(s): J45.909 - UNSPECIFIED ASTHMA, UNCOMPLICATED (6) Acute exacerbation of congestive heart failure Code(s): I50.9 - HEART FAILURE, UNSPECIFIED (7) Diabetes mellitus treated with oral medication Code(s): E11.9 - TYPE 2 DIABETES MELLITUS WITHOUT COMPLICATIONS (8) Diabetic neuropathy Code(s): E11.40 - TYPE 2 DIABETES MELLITUS WITH DIABETIC NEUROPATHY, UNSP (10) Obesity, morbid, BMI 50 or higher Code(s): E66.01 - MORBID (SEVERE) OBESITY DUE TO EXCESS CALORIES (11) HLD (hyperlipidemia) Code(s): E78.5 - HYPERLIPIDEMIA, UNSPECIFIED (12) A-fib Code(s): I48.91 - UNSPECIFIED ATRIAL FIBRILLATION (13) Chronic pain Code(s): G89.29 - OTHER CHRONIC PAIN (14) Chronic use of opiate for therapeutic purpose Code(s): Z79.899 - OTHER ALF (CURRENT) DRUG THERAPY (16) Sleep apnea Code(s): G47.30 - SLEEP APNEA, UNSPECIFIED (17) Nicotine dependence Code(s): F17.200 - NICOTINE DEPENDENCE, UNSPECIFIED, UNCOMPLICATED Visit type - Emergency Visit Emergency Visit: Yes ED Registration Date: 04/10/17 Care time: The patient presented to the Emergency Department on the above date and was hospitalized for further evaluation of their emergent condition. - New Patient This patient is new to me today: Yes Date on this admission: 04/10/17 - Critical Care Critical Care patient: No
[2017-04-10] MEDS: HEPARIN NA (PORCINE) 5,000 UNITS/ML 1ML VIAL SQ SCH ×3 (06:51→21:45)
[2017-04-10] MEDS: ALBUTEROL SO4 2.5/IPRATROPIUM 0.5 INH SOL 3 ML VIAL.NEB. NEB SCH ×3 (06:51→17:26)
[2017-04-10 08:59] VITALS: BMI 42.5
--- NOTE | 2017-04-10 09:41 | EKG ---
Test Reason : Blood Pressure : / mmHG Vent. Rate : 101 BPM Atrial Rate : 101 BPM P-R Int : 132 ms QRS Dur : 072 ms QT Int : 390 ms P-R-T Axes : 049 065 065 degrees QTc Int : 505 ms SINUS TACHYCARDIA POSSIBLE LEFT ATRIAL ENLARGEMENT WHEN COMPARED WITH ECG OF 25-MAR-2017 16:26, SINUS RHYTHM HAS REPLACED ATRIAL FIBRILLATION NONSPECIFIC T WAVE ABNORMALITY NO LONGER EVIDENT IN LATERAL LEADS Confirmed by KINA AVINA, NANY ([id number]) on 04/10/2017 9:41:09 AM Referred By: Confirmed By:NANY CASTANON MD
[2017-04-10] MEDS ORDERED: ENALAPRIL MALEATE 2.5 MG TABLET (FP) PO SCH (10:00)
[2017-04-10] MEDS ORDERED: BUMETANIDE 2 MG TABLET PO SCH (10:00)
[2017-04-10] MEDS ORDERED: METOPROLOL TARTRATE 50 MG TABLET (FP) PO SCH (10:00)
[2017-04-10] MEDS: ASCORBIC ACID 500 MG TABLET (FP) PO SCH (10:06)
[2017-04-10] MEDS: NIFEdipine E.R. 30 MG TABLET (FP) PO SCH (10:06)
[2017-04-10] MEDS: methylPREDNISolone NA SUCC 40 MG/1 ML VIAL IVPUSH SCH ×4 (10:06→17:54)
[2017-04-10] MEDS: FOLIC ACID 1 MG TABLET (FP) PO SCH (10:06)
[2017-04-10] MEDS: ASPIRIN 81 MG CHEWABLE TABLETS PO SCH (10:06)
[2017-04-10] MEDS: DOXYCYCLINE INJECTION 100 MG in DEXTROSE 5%-WATER - 100 ML IVPB SCH ×2 (10:06→21:44)
[2017-04-10] MEDS: CHOLECALCIFEROL (VITAMIN D3) 1,000 UNIT TABLET (FP) PO SCH (10:06)
[2017-04-10] MEDS: INSULIN SLIDING SCALE (NOVOLOG) 1 VIAL SQ SCH ×3 (12:14→21:45)
[2017-04-10 13:05] LABS: URINE APPEARANCE CLEAR; URINE BILIRUBIN NEGATIVE (NEGATIVE); URINE BLOOD NEGATIVE (NEGATIVE); URINE COLOR YELLOW; URINE GLUCOSE (UA) 1+ (NEGATIVE); URINE KETONE 1+ (NEGATIVE); URINE NITRITE NEGATIVE (NEGATIVE)
[2017-04-10 13:14] LABS: URINE PROTEIN 1+ (NEGATIVE)
[2017-04-10 13:58] LABS: URINE BACTERIA RARE /hpf (NONE SEEN)
[2017-04-10] MEDS ORDERED: ENALAPRIL MALEATE 5 MG TABLET (FP) PO ONE (14:08)
--- NOTE | 2017-04-10 14:10 | PN ---
Progress Note (short form) - Note Progress Note: PULMONARY CONSULTATION DICTATED 04/10/17 IMP ACUTE HYPOXEMIC RESPIRATORY FAILURE COPD EXACERBATION ? PNEUMONIA ILD PULMONARY HTN AFIB NIDDM HTN OSAS TOBACCO ABUSE PLAN IV STEROIDS INHALED BRONCHODILATORS O2 ANTIBIOTICS CULTURES PFTS OUTPATIENT F/U CHEST CT OUTPATIENT COMPLIANCE WITH CPAP SMOKING CESSATION COUNSELED DR LORA Problem List - Problems (1) A-fib Code(s): I48.91 - UNSPECIFIED ATRIAL FIBRILLATION (2) Acute respiratory failure with hypoxia Code(s): J96.01 - ACUTE RESPIRATORY FAILURE WITH HYPOXIA (3) HLD (hyperlipidemia) Code(s): E78.5 - HYPERLIPIDEMIA, UNSPECIFIED (4) Pneumonia Code(s): J18.9 - PNEUMONIA, UNSPECIFIED ORGANISM Qualifiers: Pneumonia type: due to unspecified organism Laterality: bilateral Lung location: lower lobe of lung Qualified Code(s): J18.9 - Pneumonia, unspecified organism; J18.9 - Pneumonia, unspecified organism (5) Asthma Code(s): J45.909 - UNSPECIFIED ASTHMA, UNCOMPLICATED (6) Fever Code(s): R50.9 - FEVER, UNSPECIFIED (7) Diabetes mellitus treated with oral medication Code(s): E11.9 - TYPE 2 DIABETES MELLITUS WITHOUT COMPLICATIONS (8) Obesity, morbid, BMI 50 or higher Code(s): E66.01 - MORBID (SEVERE) OBESITY DUE TO EXCESS CALORIES (9) Sleep apnea Code(s): G47.30 - SLEEP APNEA, UNSPECIFIED (10) Pulmonary HTN Code(s): I27.20 - PULMONARY HYPERTENSION, UNSPECIFIED (11) Interstitial lung disease Code(s): J84.9 - INTERSTITIAL PULMONARY DISEASE, UNSPECIFIED (12) COPD (chronic obstructive pulmonary disease) Code(s): J44.9 - CHRONIC OBSTRUCTIVE PULMONARY DISEASE, UNSPECIFIED (13) Tobacco abuse Code(s): Z72.0 - TOBACCO USE (14) Tobacco abuse counseling Code(s): Z71.6 - TOBACCO ABUSE COUNSELING
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
[2017-04-10] MEDS: ENALAPRIL MALEATE 2.5 MG TABLET (FP) PO SCH ×2 (14:29→21:44)
--- NOTE | 2017-04-10 15:44 | CON.ID ---
Consult Consult Specialty:: infectious diseases Reason for Consultation:: sob,hemoptysis - History of Present Illness Chief Complaint: cough,hemoptysis History of Present Illness: 57 y/o woman with al history of HTN, HLD, NIDDM, Afib , Asthma, MERT, Morbid Obesity. admitted with increased SOB, DUARTE, cough, fever, and chills x several days worse now. Patient reports cleaning out her home for inspection, with increased exposure to dust. Patient reports using non-toxic hot water heater installer and keeping the room well ventilated. However, she notes her breathing became more labored last night forcing her to come in. Patient was recently treated for Bronchitis 03/22 completed Z-jie. patient also mentions that she has been having hemoptysis since last couple of days and is improving she denies any fevers or chills - History Source History Provided By: Patient Limitations to Obtaining History: No Limitations - Past Medical History Cardio/Vascular: Yes: CHF, HTN Pulmonary: Yes: Asthma Gastrointestinal: Yes: GERD Endocrine: Yes: Diabetes Mellitus - Alcohol/Substance Use Hx Alcohol Use: No - Smoking History Smoking history: Current every day smoker Have you smoked in the past 12 months: Yes Aproximately how many cigarettes per day: 20 - Social History ADL: Independent History of Recent Travel: No Home Medications - Allergies Allergies/Adverse Reactions: Allergies Allergy/AdvReac Type Severity Reaction Status Date / Time strawberry Allergy Intermediate Rash Verified 04/09/17 22:36 moxifloxacin HCl Allergy Mild Rash Verified 04/09/17 22:36 [From Avelox] [place]-3 acid Ethyl Esters Allergy Verified 04/09/17 22:36 [From Lovaza] duloxetine HCl AdvReac fainting Verified 04/09/17 22:36 [From Cymbalta] - Home Medications Home Medications: Ambulatory Orders Albuterol Sulfate Inhaler - [Ventolin HFA Inhaler -] 2 inh IH Q4H PRN 01/31/14 Aspirin [ASA -] 81 mg PO DAILY 01/31/14 Enalapril Maleate [Vasotec -] 2.5 mg PO BID 01/31/14 Ergocalciferol [Drisdol -] 50,000 unit PO WEEKLY 01/31/14 Glipizide 5 mg PO DAILY 01/31/14 Sertraline HCl [Zoloft] 200 mg PO HS 01/31/14 Simvastatin [Zocor -] 40 mg PO HS 01/31/14 Sitagliptin Phos/Metformin HCl [Janumet 50-500 mg Tablet] 1 tab PO BID 01/31/14 Cyclobenzaprine HCl [Flexeril] 5 mg PO BID 06/28/14 Ascorbic Acid [Vitamin C -] 500 mg PO DAILY 01/02/15 Metoprolol Tartrate [Lopressor -] 50 mg PO BID 04/03/15 Montelukast Na [Singulair -] 10 mg PO HS 11/14/15 Nifedipine [Procardia Xl] 30 mg PO DAILY 12/11/15 Bumetanide [Bumex -] 2 mg PO DAILY 04/03/16 Folic Acid 1 mg PO DAILY 04/03/16 Budesonide/Formeterol Fumarate [SYMBICORT 160/4.5mcg -] 1 inh PO DAILY 05/09/16 Oxycodone HCl/Acetaminophen [Percocet 10-325 mg Tablet] 1 each PO TID PRN #90 tablet MDD 3 03/18/17 Azithromycin [Zithromax -] 250 mg PO UTDICT #6 tab 03/25/17 Cholecalciferol (Vitamin D3) [Vitamin D3 -] 1,000 unit PO DAILY 03/25/17 Family Disease History - Family Disease History Family Disease History: Heart Disease: Mother (alive), Other: Father (arthritis) Review of Systems - Review of Systems Constitutional: reports: No Symptoms Eyes: reports: No Symptoms HENT: reports: No Symptoms Neck: reports: No Symptoms Cardiovascular: reports: No Symptoms Respiratory: reports: Cough, Hemoptysis, SOB Gastrointestinal: reports: No Symptoms Genitourinary: reports: No Symptoms Musculoskeletal: reports: No Symptoms Integumentary: reports: No Symptoms Neurological: reports: No Symptoms Endocrine: reports: No Symptoms Hematology/Lymphatic: reports: No Symptoms Psychiatric: reports: No Symptoms Physical Exam Vital Signs: Vital Signs Temperature 98.4 F 04/10/17 13:59 Pulse Rate 85 04/10/17 13:59 Respiratory Rate 16 04/10/17 13:59 Blood Pressure 188/108 04/10/17 13:59 O2 Sat by Pulse Oximetry (%) 96 04/10/17 09:06 Constitutional: Yes: Well Nourished, No Distress, Calm, Obese Eyes: Yes: Conjunctiva Clear HENT: Yes: Atraumatic Neck: Yes: Supple, Trachea Midline Cardiovascular: Yes: S1, S2 Respiratory: Yes: Poor Air Entry, Other Gastrointestinal: Yes: Normal Bowel Sounds, Soft Musculoskeletal: Yes: WNL Extremities: Yes: WNL Neurological: Yes: Alert, Oriented Psychiatric: Yes: Alert, Oriented Imaging - Results Cat Scan: Report Reviewed, Image Reviewed Assessment/Plan This is a 57 y/o woman with a PMHx of: HTN, HLD, NIDDM, Afib (no AC), CHF, Asthma, MERT, Severe Obesity. Admitted for Bilateral Lower Pneumonia secondary to Failed Outpatient Therapy, Acute Respiratory Failure, Hypoxia for further evaluation of their emergent condition. Plan: 1. Pneumonia 2. Acute Respiratory Failure//Hypoxia 3. Asthma Exacerbation 3. HTN//HLD//Afib//CHF 4. NIDDM 5. MERT I am worried about the hemoptysis patient now on ceftriaxone plan continue to monitor hemoptysis continue abx incentive nick rest as per primary team
[2017-04-10] MEDS: oxyCODONE HCL 5 MG TABLET PO PRN (18:36)
[2017-04-10] MEDS: ACETAMINOPHEN 325 MG TABLET (FP) PO PRN (18:38)
[2017-04-10] MEDS ORDERED: POTASSIUM CHLORIDE TABS 20 MEQ TABLET.ER (FP) PO ONE (19:00)
[2017-04-10 19:02] LABS: URINE LEUK ESTERASE Negative (NEGATIVE)
[2017-04-10] MEDS ORDERED: PT OWN MED DRAWER 7, Y5N ONE (21:41)
[2017-04-10] MEDS: METOPROLOL SUCCINATE 25 MG TAB.SR.24H (FP) PO SCH (21:44)
[2017-04-10] MEDS: MONTELUKAST NA 10 MG TABLET PO SCH (21:44)
[2017-04-10] MEDS: ATORVASTATIN CA 20 MG TABLET (FP) PO SCH (21:44)
[2017-04-11 01:01] LABS: URINE RBC 9
[2017-04-11 01:02] LABS: URINE WBC 2
[2017-04-11] MEDS: methylPREDNISolone NA SUCC 40 MG/1 ML VIAL IVPUSH SCH ×3 (02:16→18:03)
[2017-04-11] MEDS: HEPARIN NA (PORCINE) 5,000 UNITS/ML 1ML VIAL SQ SCH ×3 (06:00→21:51)
--- NOTE | 2017-04-11 06:59 | PN ---
Progress Note, Physician History of Present Illness: seen and examined today in nad. states she is feeling better. LE edema improved. sob improved. - Current Medication List Current Medications: Active Medications Acetaminophen (Tylenol -) 650 mg PO Q6H PRN PRN Reason: FEVER OR PAIN Last Admin: 04/10/17 18:38 Dose: 650 mg Albuterol/Ipratropium (Duoneb -) 1 amp NEB QIDR [facility] Last Admin: 04/11/17 00:00 Dose: 1 amp Ascorbic Acid (Vitamin C -) 500 mg PO DAILY [facility] Last Admin: 04/10/17 10:06 Dose: 500 mg Aspirin (Asa -) 81 mg PO DAILY [facility] Last Admin: 04/10/17 10:06 Dose: 81 mg Atorvastatin Calcium (Lipitor -) 20 mg PO HS [facility] Last Admin: 04/10/17 21:44 Dose: 20 mg Bumetanide (Bumex -) 2 mg PO DAILY [facility] Last Admin: 04/10/17 10:35 Dose: 2 mg Cholecalciferol (Vitamin D3 -) 1,000 unit PO DAILY [facility] Last Admin: 04/10/17 10:06 Dose: 1,000 unit Enalapril Maleate (Vasotec -) 5 mg PO BID [facility] Last Admin: 04/10/17 21:44 Dose: 5 mg Folic Acid (Folic Acid -) 1 mg PO DAILY [facility] Last Admin: 04/10/17 10:06 Dose: 1 mg Heparin Sodium (Porcine) (Heparin -) 5,000 unit SQ TID [facility] Last Admin: 04/10/17 21:45 Dose: 5,000 unit CEFTRIAXONE 1 G/50 ML PREMIX (Ceftriaxone 1 Gm-D5w Bag) 50 mls @ 100 mls/hr IVPB DAILY [facility] Doxycycline Hyclate 100 mg/ (Dextrose) 100 mls @ 50 mls/hr IVPB BID [facility] Last Admin: 04/10/17 21:44 Dose: 50 mls/hr Insulin Aspart (Novolog Vial Sliding Scale -) 0 vial SQ ACHS [facility] PRN Reason: Protocol Last Admin: 04/10/17 21:45 Dose: 8 units Methylprednisolone Sodium Succinate (Solu-Medrol -) 40 mg IVPUSH Q8H-IV [facility] Last Admin: 04/11/17 02:16 Dose: 40 mg Metoprolol Succinate (Toprol Xl -) 25 mg PO BID [facility] Last Admin: 04/10/17 21:44 Dose: 25 mg Montelukast Sodium (Singulair -) 10 mg PO HS [facility] Last Admin: 04/10/17 21:44 Dose: 10 mg Nifedipine (Procardia Xl -) 30 mg PO DAILY [facility] Last Admin: 04/10/17 10:06 Dose: 30 mg Oxycodone HCl (Roxicodone -) 5 mg PO Q4H PRN PRN Reason: PAIN Last Admin: 04/10/17 18:36 Dose: 5 mg - Objective Vital Signs: Vital Signs Temperature 98.5 F 04/11/17 06:00 Pulse Rate 84 04/11/17 06:00 Respiratory Rate 20 04/11/17 06:00 Blood Pressure 139/79 04/11/17 06:00 O2 Sat by Pulse Oximetry (%) 95 04/10/17 21:00 Constitutional: Yes: No Distress, Calm, Obese Eyes: Yes: Conjunctiva Clear, EOM Intact, PERRL HENT: Yes: Atraumatic, Normocephalic Neck: Yes: Supple, Trachea Midline Cardiovascular: Yes: Regular Rate and Rhythm, S1, S2. No: Bradycardia, Tachycardia, Pulse Irregular, Bruit, JVD, Gallop, Murmur, Rub, S3, S4, Varicosities Respiratory: Yes: Regular, Diminished. No: Rales, Rhonchi, SOB, Wheezes Gastrointestinal: Yes: Normal Bowel Sounds, Soft. No: Distention, Tenderness Musculoskeletal: Yes: Muscle Weakness Extremities: Yes: WNL Edema: LLE: Trace, RLE: Trace Peripheral Pulses WNL: Yes Peripheral Pulses: Left Doralis Pedis: 2+, Right Dorsalis Pedis: 2+ Neurological: Yes: Alert, Oriented Psychiatric: Yes: Alert, Oriented - ....Imaging Chest X-ray: Report Reviewed, Image Reviewed EKG: Report Reviewed, Image Reviewed Other: Report Reviewed, Image Reviewed Assessment/Plan 57 year old woman h/o COPD heavy smoker, ILD, PSVT likely aflutter, HTN, DMII, chronic diastolic CHF, normal coronary arteries on last cardiac cath, obesity, likely MERT admitted with sob, edema. IMP: Acute exacerbation of COPD Possible Interstitial lung disease vs mild pulmonary congestion PHTN, severe Morbid obesity Mild acute on chronic diastolic CHF Component of right sided CHF due to PHTN PAF/PSVT HTN REC: Steroids as per pulmonary Abx as per ID Edema improved today, cont current bumex dose HTN was uncontrolled on admission, pt reports not taking her meds on day of admission BP now adequately controlled after resuming home medications NSR on admission, of note patient has refused AC for possible paroxysmal aflutter; continue Toprol and ASA therapy. 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 Pt is acceptable from a cardiac standpoint for discharge planning with a plan for close outpatient f/up within 1-2 weeks of discharge. No additional inpatient cardiac work up is needed at this time.
[2017-04-11] MEDS: ALBUTEROL SO4 2.5/IPRATROPIUM 0.5 INH SOL 3 ML VIAL.NEB. NEB SCH ×5 (07:15→23:21)
[2017-04-11 07:27] LABS: ALBUMIN 3.1 g/dl (3.4-5.0); ANION GAP 8 (8-16); BILIRUBIN,TOTAL 0.6 mg/dL (0.2-1.0); CALCIUM 8.5 mg/dL (8.5-10.1); CO2 27 mmol/L (21-32); CREATININE 0.6 mg/dL (0.55-1.02); GLUCOSE,RANDOM 208 mg/dL (74-106); SGOT/AST 23 U/L (15-37); SGPT/ALT 33 U/L (12-78); TOT PROT 6.8 g/dl (6.4-8.2)
[2017-04-11 07:28] LABS: ALK PHOS 108 U/L (45-117)
[2017-04-11 08:13] LABS: BASOPHIL 0.2 % (0-2.0); MCH 30.5 pg (25.7-33.7); MCHC 33.4 g/dl (32.0-36.0); MEAN CELL VOLUME 91.4 fl (80-96); MEAN PLT VOLUME 9.1 fl (7.5-11.1); NEUTROPHILS 83.2 % (42.8-82.8); PLATELET COUNT 205 K/MM3 (134-434); RDW 15.6 % (11.6-15.6); WHITE BLOOD COUNT 7.5 K/mm3 (4.0-10.0)
[2017-04-11] MEDS ORDERED: POTASSIUM CHLORIDE TABS 20 MEQ TABLET.ER (FP) PO ONE ×2 (08:45→12:45)
[2017-04-11] MEDS ORDERED: PT OWN MED DRAWER 7, Y5N ONE ×3 (09:43→21:46)
[2017-04-11] MEDS ORDERED: ENALAPRIL MALEATE 5 MG TABLET (FP) PO SCH ×2 (10:00)
[2017-04-11] MEDS: ASPIRIN 81 MG CHEWABLE TABLETS PO SCH (10:04)
[2017-04-11] MEDS: BUMETANIDE 1 MG TABLET PO SCH (10:04)
[2017-04-11] MEDS: NIFEdipine E.R. 30 MG TABLET (FP) PO SCH (10:05)
[2017-04-11] MEDS: METOPROLOL SUCCINATE 25 MG TAB.SR.24H (FP) PO SCH ×2 (10:05→21:49)
[2017-04-11] MEDS: FOLIC ACID 1 MG TABLET (FP) PO SCH (10:05)
[2017-04-11] MEDS: ENALAPRIL MALEATE 2.5 MG TABLET (FP) PO SCH ×2 (10:06→21:49)
[2017-04-11] MEDS: DOXYCYCLINE INJECTION 100 MG in DEXTROSE 5%-WATER - 100 ML IVPB SCH ×2 (10:07→21:49)
[2017-04-11] MEDS: CHOLECALCIFEROL (VITAMIN D3) 1,000 UNIT TABLET (FP) PO SCH (10:08)
[2017-04-11] MEDS: ASCORBIC ACID 500 MG TABLET (FP) PO SCH (10:08)
--- NOTE | 2017-04-11 10:31 | PN ---
Progress Note, Physician History of Present Illness: patient more sob today o2 sat 89 started on nasal o2 says she feels sob - Current Medication List Current Medications: Active Medications Acetaminophen (Tylenol -) 650 mg PO Q6H PRN PRN Reason: FEVER OR PAIN Last Admin: 04/10/17 18:38 Dose: 650 mg Albuterol/Ipratropium (Duoneb -) 1 amp NEB QIDR [facility] Last Admin: 04/11/17 07:15 Dose: 1 amp Ascorbic Acid (Vitamin C -) 500 mg PO DAILY [facility] Last Admin: 04/11/17 10:08 Dose: 500 mg Aspirin (Asa -) 81 mg PO DAILY [facility] Last Admin: 04/11/17 10:04 Dose: 81 mg Atorvastatin Calcium (Lipitor -) 20 mg PO HS [facility] Last Admin: 04/10/17 21:44 Dose: 20 mg Bumetanide (Bumex -) 2 mg PO DAILY [facility] Last Admin: 04/11/17 10:04 Dose: 2 mg Cholecalciferol (Vitamin D3 -) 1,000 unit PO DAILY [facility] Last Admin: 04/11/17 10:08 Dose: 1,000 unit Enalapril Maleate (Vasotec -) 5 mg PO BID [facility] Last Admin: 04/11/17 10:06 Dose: 5 mg Folic Acid (Folic Acid -) 1 mg PO DAILY [facility] Last Admin: 04/11/17 10:05 Dose: 1 mg Heparin Sodium (Porcine) (Heparin -) 5,000 unit SQ TID [facility] Last Admin: 04/10/17 21:45 Dose: 5,000 unit CEFTRIAXONE 1 G/50 ML PREMIX (Ceftriaxone 1 Gm-D5w Bag) 50 mls @ 100 mls/hr IVPB DAILY [facility] Doxycycline Hyclate 100 mg/ (Dextrose) 100 mls @ 50 mls/hr IVPB BID [facility] Last Admin: 04/11/17 10:07 Dose: 50 mls/hr Insulin Aspart (Novolog Vial Sliding Scale -) 0 vial SQ ACHS [facility] PRN Reason: Protocol Last Admin: 04/10/17 21:45 Dose: 8 units Methylprednisolone Sodium Succinate (Solu-Medrol -) 40 mg IVPUSH Q8H-IV [facility] Last Admin: 04/11/17 10:05 Dose: 40 mg Metoprolol Succinate (Toprol Xl -) 25 mg PO BID [facility] Last Admin: 04/11/17 10:05 Dose: 25 mg Montelukast Sodium (Singulair -) 10 mg PO HS [facility] Last Admin: 04/10/17 21:44 Dose: 10 mg Nifedipine (Procardia Xl -) 30 mg PO DAILY [facility] Last Admin: 04/11/17 10:05 Dose: 30 mg Oxycodone HCl (Roxicodone -) 5 mg PO Q4H PRN PRN Reason: PAIN Last Admin: 04/10/17 18:36 Dose: 5 mg - Objective Vital Signs: Vital Signs Temperature 97.8 F 04/11/17 09:00 Pulse Rate 72 04/11/17 09:00 Respiratory Rate 16 04/11/17 09:00 Blood Pressure 127/79 04/11/17 09:00 O2 Sat by Pulse Oximetry (%) 89 L 04/11/17 09:39 Constitutional: Yes: No Distress, Calm, Obese Cardiovascular: Yes: Regular Rate and Rhythm Respiratory: Yes: On Nasal O2, Poor Air Entry, Other Gastrointestinal: Yes: Normal Bowel Sounds, Soft Musculoskeletal: Yes: WNL Extremities: Yes: WNL Neurological: Yes: Alert, Oriented Psychiatric: Yes: Alert, Oriented Labs: CBC, BMP 04/11/17 06:30 04/11/17 06:30 Assessment/Plan This is a 57 y/o woman with a PMHx of: HTN, HLD, NIDDM, Afib (no AC), CHF, Asthma, MERT, Severe Obesity. Admitted for Bilateral Lower Pneumonia secondary to Failed Outpatient Therapy, Acute Respiratory Failure, Hypoxia for further evaluation of their emergent condition. Plan: 1. Pneumonia 2. Acute Respiratory Failure//Hypoxia 3. Asthma Exacerbation 3. HTN//HLD//Afib//CHF 4. NIDDM 5. MERT I am worried about the hemoptysis patient now on ceftriaxone plan continue to monitor hemoptysis continue abx incentive nick rest as per primary team monitor o2 sat
[2017-04-11] MEDS: ACETAMINOPHEN 325 MG TABLET (FP) PO PRN (10:56)
--- NOTE | 2017-04-11 11:22 | PN ---
Physical Exam: SUBJECTIVE: Patient seen and examined at the bedside. States she feels more short of breath at this time, on 2 liters of nasal cannula with good relief. OBJECTIVE: Lungs diminished to auscultation and oxygen sats dropped to 89%: chest xray now , incentive spirometer nebs treatments are scheduled Vital Signs Period Temp Pulse Resp BP Sys/Betancourt Pulse Ox Last 24 Hr 97.8 F-98.5 F 72-86 16-20 127-188/63-108 89-95 GENERAL: The patient is awake, alert, and fully oriented, in no acute distress. HEAD: Normal with no signs of trauma. EYES: PERRL, extraocular movements intact, sclera anicteric, conjunctiva clear. No ptosis. ENT: Ears normal, nares patent, oropharynx clear without exudates, moist mucous membranes. NECK: Trachea midline, full range of motion, supple. LUNGS: Diminished breath sounds, no wheezing HEART: Regular rate and rhythm ABDOMEN: Soft, nontender, nondistended, normoactive bowel sounds, no guarding, no rebound, no hepatosplenomegaly, no masses. EXTREMITIES: trace edema bilateral lower ext NEUROLOGICAL: Normal speech, gait not observed. PSYCH: Normal mood, normal affect. SKIN: Warm, dry, normal turgor, no rashes or lesions noted Laboratory Results - last 24 hr 04/10/17 04/10/17 04/10/17 12:13 17:00 21:43 WBC RBC Hgb Hct MCV MCH MCHC RDW Plt Count MPV Neutrophils % Lymphocytes % Monocytes % Eosinophils % Basophils % Sodium Potassium Chloride Carbon Dioxide Anion Gap BUN Creatinine Creat Clearance w eGFR POC Glucometer 258 259 304 Random Glucose Calcium Total Bilirubin AST ALT Alkaline Phosphatase Total Protein Albumin 04/11/17 04/11/17 04/11/17 05:51 06:30 06:30 WBC 7.5 RBC 3.98 Hgb 12.2 Hct 36.4 MCV 91.4 MCH 30.5 MCHC 33.4 RDW 15.6 Plt Count 205 MPV 9.1 Neutrophils % 83.2 H Lymphocytes % 11.6 D Monocytes % 5.0 Eosinophils % 0.0 D Basophils % 0.2 Sodium 142 Potassium 3.4 L Chloride 107 Carbon Dioxide 27 Anion Gap 8 BUN 10 D Creatinine 0.6 Creat Clearance w eGFR > 60 POC Glucometer 192 Random Glucose 208 H D Calcium 8.5 Total Bilirubin 0.6 D AST 23 D ALT 33 Alkaline Phosphatase 108 Total Protein 6.8 Albumin 3.1 L Active Medications Generic Name Dose Route Start Last Admin Trade Name Corinne PRN Reason Stop Dose Admin Acetaminophen 650 mg 04/10/17 04:57 04/11/17 10:56 Tylenol - PO 650 mg Q6H PRN Administration FEVER OR PAIN Albuterol/Ipratropium 1 amp 04/10/17 06:00 04/11/17 07:15 Duoneb - NEB 1 amp QIDR [facility] Administration Ascorbic Acid 500 mg 04/10/17 10:00 04/11/17 10:08 Vitamin C - PO 500 mg DAILY [facility] Administration Aspirin 81 mg 04/10/17 10:00 04/11/17 10:04 Asa - PO 81 mg DAILY [facility] Administration Atorvastatin Calcium 20 mg 04/10/17 22:00 04/10/17 21:44 Lipitor - PO 20 mg HS [facility] Administration Bumetanide 2 mg 04/11/17 10:00 04/11/17 10:04 Bumex - PO 2 mg DAILY [facility] Administration Cholecalciferol 1,000 unit 04/10/17 10:00 04/11/17 10:08 Vitamin D3 - PO 1,000 unit DAILY [facility] Administration Enalapril Maleate 5 mg 04/10/17 14:30 04/11/17 10:06 Vasotec - PO 5 mg BID [facility] Administration Folic Acid 1 mg 04/10/17 10:00 04/11/17 10:05 Folic Acid - PO 1 mg DAILY [facility] Administration Heparin Sodium (Porcine) 5,000 unit 04/10/17 06:00 04/10/17 21:45 Heparin - SQ 5,000 unit TID [facility] Administration CEFTRIAXONE 1 G/50 ML PREMIX 50 mls @ 100 mls/hr 04/11/17 10:00 Ceftriaxone 1 Gm-D5w Bag IVPB DAILY [facility] Doxycycline Hyclate 100 mg/ 100 mls @ 50 mls/hr 04/10/17 10:00 04/11/17 10:07 Dextrose IVPB 50 mls/hr BID [facility] Administration Insulin Aspart 0 vial 04/10/17 11:00 04/10/17 21:45 Novolog Vial Sliding Scale - SQ 8 units ACHS [facility] Administration Protocol Methylprednisolone Sodium Succinate 40 mg 04/10/17 18:00 04/11/17 10:05 Solu-Medrol - IVPUSH 40 mg Q8H-IV [facility] Administration Metoprolol Succinate 25 mg 04/10/17 22:00 04/11/17 10:05 Toprol Xl - PO 25 mg BID [facility] Administration Montelukast Sodium 10 mg 04/10/17 22:00 04/10/17 21:44 Singulair - PO 10 mg HS [facility] Administration Nifedipine 30 mg 04/10/17 10:00 04/11/17 10:05 Procardia Xl - PO 30 mg DAILY [facility] Administration Oxycodone HCl 5 mg 04/10/17 18:27 04/10/17 18:36 Roxicodone - PO 5 mg Q4H PRN Administration PAIN ASSESSMENT/PLAN: Patient is a 57 year old woman with a significant past medical history of HTN, HLD, NIDDM, Afib (not on any anticoagulation), asthma, MERT and morbid obesity. Patient presents to the ED with worsening shortness of breath, dyspnea on exertion, cough, fever and chills. On admission she reported cleaning her home for an inspection with exposure to dust as well as using non toxic community outreach worker to keep room well ventilatd. She reports that her breathing became worse and came to ER. She was recently treated for bronchitis on 03/22 with a [employer] [place]. On todays exam, patient reported shortness of breath relived with supplemental oxygen. She was sitting in the chair, in no acute distress. Pulmonary: Pneumonia, acute Asthma exacerbation, acute On scheduled duonebs Solumedrol 40mg q8 Influenza negatrive, Legionella negative On Ceftriaxone and Doxycycline per ID On 2 liters supplemental oxygen Incentive spirometer as tolerated Pulmonary consulted Cardiology: Hypertension On Procardia XL, Vasotec BID Afib history, to continue outpatient workup, not on an a/c at this time Cardiology notes reviewed CHF, chronic On Bumex Monitor intake and output Endocrine: Diabetes, chronic, hyperglycemia in the setting of steroid use Levemir 5 units tonight, monitor Home Glypizide ordered F.E.N. Fludis: tolerating PO Electrolytes: monitor Nutrition: low sodium Prophy: DVT: ambulation, GI: Protonix
[2017-04-11] MEDS: INSULIN SLIDING SCALE (NOVOLOG) 1 VIAL SQ SCH ×3 (11:45→21:50)
[2017-04-11] MEDS: CEFTRIAXONE 1 G/50 ML PREMIX 50 ML IVPB SCH (15:00)
--- NOTE | 2017-04-11 15:17 | PN ---
Progress Note, Physician History of Present Illness: pulmonary alert,feeling better,less dyspneic. - Current Medication List Current Medications: Active Medications Acetaminophen (Tylenol -) 650 mg PO Q6H PRN PRN Reason: FEVER OR PAIN Last Admin: 04/11/17 10:56 Dose: 650 mg Albuterol/Ipratropium (Duoneb -) 1 amp NEB QIDR [facility] Last Admin: 04/11/17 11:47 Dose: 1 amp Ascorbic Acid (Vitamin C -) 500 mg PO DAILY [facility] Last Admin: 04/11/17 10:08 Dose: 500 mg Aspirin (Asa -) 81 mg PO DAILY [facility] Last Admin: 04/11/17 10:04 Dose: 81 mg Atorvastatin Calcium (Lipitor -) 20 mg PO HS [facility] Last Admin: 04/10/17 21:44 Dose: 20 mg Bumetanide (Bumex -) 2 mg PO DAILY [facility] Last Admin: 04/11/17 10:04 Dose: 2 mg Cholecalciferol (Vitamin D3 -) 1,000 unit PO DAILY [facility] Last Admin: 04/11/17 10:08 Dose: 1,000 unit Enalapril Maleate (Vasotec -) 5 mg PO BID [facility] Last Admin: 04/11/17 10:06 Dose: 5 mg Folic Acid (Folic Acid -) 1 mg PO DAILY [facility] Last Admin: 04/11/17 10:05 Dose: 1 mg Heparin Sodium (Porcine) (Heparin -) 5,000 unit SQ TID [facility] Last Admin: 04/10/17 21:45 Dose: 5,000 unit CEFTRIAXONE 1 G/50 ML PREMIX (Ceftriaxone 1 Gm-D5w Bag) 50 mls @ 100 mls/hr IVPB DAILY [facility] Doxycycline Hyclate 100 mg/ (Dextrose) 100 mls @ 50 mls/hr IVPB BID [facility] Last Admin: 04/11/17 10:07 Dose: 50 mls/hr Insulin Aspart (Novolog Vial Sliding Scale -) 0 vial SQ ACHS [facility] PRN Reason: Protocol Last Admin: 04/11/17 11:45 Dose: 4 units Methylprednisolone Sodium Succinate (Solu-Medrol -) 40 mg IVPUSH Q8H-IV [facility] Last Admin: 04/11/17 10:05 Dose: 40 mg Metoprolol Succinate (Toprol Xl -) 25 mg PO BID [facility] Last Admin: 04/11/17 10:05 Dose: 25 mg Montelukast Sodium (Singulair -) 10 mg PO HS [facility] Last Admin: 04/10/17 21:44 Dose: 10 mg Nifedipine (Procardia Xl -) 30 mg PO DAILY [facility] Last Admin: 04/11/17 10:05 Dose: 30 mg Oxycodone HCl (Roxicodone -) 5 mg PO Q4H PRN PRN Reason: PAIN Last Admin: 04/10/17 18:36 Dose: 5 mg - Objective Vital Signs: Vital Signs Temperature 97.6 F 04/11/17 14:00 Pulse Rate 79 04/11/17 10:00 Respiratory Rate 17 04/11/17 10:00 Blood Pressure 125/75 04/11/17 10:00 O2 Sat by Pulse Oximetry (%) 89 L 04/11/17 09:39 Constitutional: Yes: Well Nourished, Calm Eyes: Yes: WNL HENT: Yes: WNL Neck: Yes: WNL Cardiovascular: Yes: Pulse Irregular, S1, S2 Respiratory: Yes: Rales (bibasilar crackles) Gastrointestinal: Yes: Normal Bowel Sounds, Soft Extremities: Yes: WNL Edema: Yes Labs: CBC, BMP 04/11/17 06:30 04/11/17 06:30 Problem List - Problems (1) A-fib Code(s): I48.91 - UNSPECIFIED ATRIAL FIBRILLATION (2) Acute respiratory failure with hypoxia Code(s): J96.01 - ACUTE RESPIRATORY FAILURE WITH HYPOXIA (3) HLD (hyperlipidemia) Code(s): E78.5 - HYPERLIPIDEMIA, UNSPECIFIED (4) Pneumonia Code(s): J18.9 - PNEUMONIA, UNSPECIFIED ORGANISM Qualifiers: Pneumonia type: due to unspecified organism Laterality: bilateral Lung location: lower lobe of lung Qualified Code(s): J18.9 - Pneumonia, unspecified organism; J18.9 - Pneumonia, unspecified organism (5) Asthma Code(s): J45.909 - UNSPECIFIED ASTHMA, UNCOMPLICATED (6) Fever Code(s): R50.9 - FEVER, UNSPECIFIED (7) Diabetes mellitus treated with oral medication Code(s): E11.9 - TYPE 2 DIABETES MELLITUS WITHOUT COMPLICATIONS (8) Obesity, morbid, BMI 50 or higher Code(s): E66.01 - MORBID (SEVERE) OBESITY DUE TO EXCESS CALORIES (9) Sleep apnea Code(s): G47.30 - SLEEP APNEA, UNSPECIFIED (10) Pulmonary HTN Code(s): I27.20 - PULMONARY HYPERTENSION, UNSPECIFIED (11) Interstitial lung disease Code(s): J84.9 - INTERSTITIAL PULMONARY DISEASE, UNSPECIFIED (12) COPD (chronic obstructive pulmonary disease) Code(s): J44.9 - CHRONIC OBSTRUCTIVE PULMONARY DISEASE, UNSPECIFIED (13) Tobacco abuse Code(s): Z72.0 - TOBACCO USE (14) Tobacco abuse counseling Code(s): Z71.6 - TOBACCO ABUSE COUNSELING Assessment/Plan IMP ACUTE HYPOXEMIC RESPIRATORY FAILURE COPD EXACERBATION ? PNEUMONIA ILD PULMONARY HTN AFIB NIDDM HTN OSAS TOBACCO ABUSE PLAN IV STEROIDS SAME DOSE INHALED BRONCHODILATORS O2 ANTIBIOTICS PFTS OUTPATIENT F/U CHEST CT OUTPATIENT COMPLIANCE WITH CPAP SMOKING CESSATION COUNSELED DR LORA Problem List - Problems (1) A-fib Code(s): I48.91 - UNSPECIFIED ATRIAL FIBRILLATION (2) Acute respiratory failure with hypoxia Code(s): J96.01 - ACUTE RESPIRATORY FAILURE WITH HYPOXIA (3) HLD (hyperlipidemia) Code(s): E78.5 - HYPERLIPIDEMIA, UNSPECIFIED (4) Pneumonia Code(s): J18.9 - PNEUMONIA, UNSPECIFIED ORGANISM Qualifiers: Pneumonia type: due to unspecified organism Laterality: bilateral Lung location: lower lobe of lung Qualified Code(s): J18.9 - Pneumonia, unspecified organism; J18.9 - Pneumonia, unspecified organism (5) Asthma Code(s): J45.909 - UNSPECIFIED ASTHMA, UNCOMPLICATED (6) Fever Code(s): R50.9 - FEVER, UNSPECIFIED (7) Diabetes mellitus treated with oral medication Code(s): E11.9 - TYPE 2 DIABETES MELLITUS WITHOUT COMPLICATIONS (8) Obesity, morbid, BMI 50 or higher Code(s): E66.01 - MORBID (SEVERE) OBESITY DUE TO EXCESS CALORIES (9) Sleep apnea Code(s): G47.30 - SLEEP APNEA, UNSPECIFIED (10) Pulmonary HTN Code(s): I27.20 - PULMONARY HYPERTENSION, UNSPECIFIED (11) Interstitial lung disease Code(s): J84.9 - INTERSTITIAL PULMONARY DISEASE, UNSPECIFIED (12) COPD (chronic obstructive pulmonary disease) Code(s): J44.9 - CHRONIC OBSTRUCTIVE PULMONARY DISEASE, UNSPECIFIED (13) Tobacco abuse Code(s): Z72.0 - TOBACCO USE (14) Tobacco abuse counseling Code(s): Z71.6 - TOBACCO ABUSE COUNSELING
[2017-04-11] MEDS: oxyCODONE HCL 5 MG TABLET PO PRN (19:14)
[2017-04-11] MEDS: MONTELUKAST NA 10 MG TABLET PO SCH (21:49)
[2017-04-11] MEDS: ATORVASTATIN CA 20 MG TABLET (FP) PO SCH (21:49)
[2017-04-11] MEDS: INSULIN DETEMIR 100 UNITS/ML MDV SQ SCH (21:49)
[2017-04-12] MEDS: methylPREDNISolone NA SUCC 40 MG/1 ML VIAL IVPUSH SCH ×3 (01:13→17:39)
[2017-04-12] MEDS: HEPARIN NA (PORCINE) 5,000 UNITS/ML 1ML VIAL SQ SCH ×3 (06:27→21:31)
[2017-04-12] MEDS: glipiZIDE 5 MG TABLET (FP) PO SCH (06:27)
[2017-04-12] MEDS: INSULIN SLIDING SCALE (NOVOLOG) 1 VIAL SQ SCH ×4 (06:28→21:31)
[2017-04-12] MEDS: ALBUTEROL SO4 2.5/IPRATROPIUM 0.5 INH SOL 3 ML VIAL.NEB. NEB SCH ×4 (06:33→23:26)
[2017-04-12] MEDS ORDERED: PT OWN MED DRAWER 7, Y5N ONE ×2 (08:51→09:29)
[2017-04-12 09:29] LABS: ALBUMIN 3.3 g/dl (3.4-5.0); ANION GAP 8 (8-16); CALCIUM 8.8 mg/dL (8.5-10.1); CO2 26 mmol/L (21-32); GLUCOSE,RANDOM 227 mg/dL (74-106)
[2017-04-12 09:33] LABS: ALK PHOS 110 U/L (45-117); BILIRUBIN,TOTAL 0.5 mg/dL (0.2-1.0); CREATININE 0.7 mg/dL (0.55-1.02); SGOT/AST 19 U/L (15-37); SGPT/ALT 37 U/L (12-78); TOT PROT 7.4 g/dl (6.4-8.2)
[2017-04-12] MEDS: CEFTRIAXONE 1 G/50 ML PREMIX 50 ML IVPB SCH (09:34)
[2017-04-12] MEDS: ASCORBIC ACID 500 MG TABLET (FP) PO SCH (09:35)
[2017-04-12] MEDS: NIFEdipine E.R. 30 MG TABLET (FP) PO SCH (09:35)
[2017-04-12] MEDS: ASPIRIN 81 MG CHEWABLE TABLETS PO SCH (09:35)
[2017-04-12] MEDS: PANTOPRAZOLE 40 MG TABLET (FP) PO SCH (09:35)
[2017-04-12] MEDS: CHOLECALCIFEROL (VITAMIN D3) 1,000 UNIT TABLET (FP) PO SCH (09:35)
[2017-04-12] MEDS: METOPROLOL SUCCINATE 25 MG TAB.SR.24H (FP) PO SCH ×2 (09:35→21:30)
[2017-04-12] MEDS: ENALAPRIL MALEATE 2.5 MG TABLET (FP) PO SCH ×2 (09:35→21:30)
[2017-04-12] MEDS: FOLIC ACID 1 MG TABLET (FP) PO SCH (09:35)
[2017-04-12] MEDS: BUMETANIDE 1 MG TABLET PO SCH (09:35)
[2017-04-12] MEDS: DOXYCYCLINE INJECTION 100 MG in DEXTROSE 5%-WATER - 100 ML IVPB SCH ×2 (09:36→21:30)
--- NOTE | 2017-04-12 11:29 | PN ---
Progress Note, Physician History of Present Illness: seen and examined today in nad. no overnight events. no new complaints. - Current Medication List Current Medications: Active Medications Acetaminophen (Tylenol -) 650 mg PO Q6H PRN PRN Reason: FEVER OR PAIN Last Admin: 04/11/17 10:56 Dose: 650 mg Albuterol/Ipratropium (Duoneb -) 1 amp NEB QIDR [facility] Last Admin: 04/12/17 11:00 Dose: 1 amp Ascorbic Acid (Vitamin C -) 500 mg PO DAILY [facility] Last Admin: 04/12/17 09:35 Dose: 500 mg Aspirin (Asa -) 81 mg PO DAILY [facility] Last Admin: 04/12/17 09:35 Dose: 81 mg Atorvastatin Calcium (Lipitor -) 20 mg PO HS [facility] Last Admin: 04/11/17 21:49 Dose: 20 mg Bumetanide (Bumex -) 2 mg PO DAILY [facility] Last Admin: 04/12/17 09:35 Dose: 2 mg Cholecalciferol (Vitamin D3 -) 1,000 unit PO DAILY [facility] Last Admin: 04/12/17 09:35 Dose: 1,000 unit Enalapril Maleate (Vasotec -) 5 mg PO BID [facility] Last Admin: 04/12/17 09:35 Dose: 5 mg Folic Acid (Folic Acid -) 1 mg PO DAILY [facility] Last Admin: 04/12/17 09:35 Dose: 1 mg Glipizide (Glucotrol -) 5 mg PO DAILY@0700 [facility] Last Admin: 04/12/17 06:27 Dose: 5 mg Heparin Sodium (Porcine) (Heparin -) 5,000 unit SQ TID [facility] Last Admin: 04/12/17 06:27 Dose: 5,000 unit CEFTRIAXONE 1 G/50 ML PREMIX (Ceftriaxone 1 Gm-D5w Bag) 50 mls @ 100 mls/hr IVPB DAILY [facility] Last Admin: 04/12/17 09:34 Dose: 100 mls/hr Doxycycline Hyclate 100 mg/ (Dextrose) 100 mls @ 50 mls/hr IVPB BID [facility] Last Admin: 04/12/17 09:36 Dose: 50 mls/hr Insulin Aspart (Novolog Vial Sliding Scale -) 1 vial SQ ACHS [facility] PRN Reason: Protocol Last Admin: 04/12/17 06:28 Dose: 6 units Insulin Detemir (Levemir Vial) 5 units SQ HS [facility] Last Admin: 04/11/17 21:49 Dose: 5 unit Methylprednisolone Sodium Succinate (Solu-Medrol -) 40 mg IVPUSH Q8H-IV [facility] Last Admin: 04/12/17 10:38 Dose: 40 mg Metoprolol Succinate (Toprol Xl -) 25 mg PO BID [facility] Last Admin: 04/12/17 09:35 Dose: 25 mg Montelukast Sodium (Singulair -) 10 mg PO HS [facility] Last Admin: 04/11/17 21:49 Dose: 10 mg Nifedipine (Procardia Xl -) 30 mg PO DAILY [facility] Last Admin: 04/12/17 09:35 Dose: 30 mg Oxycodone HCl (Roxicodone -) 5 mg PO Q4H PRN PRN Reason: PAIN Last Admin: 04/11/17 19:14 Dose: 5 mg Pantoprazole Sodium (Protonix -) 40 mg PO DAILY [facility] Last Admin: 04/12/17 09:35 Dose: 40 mg - Objective Vital Signs: Vital Signs Temperature 97.5 F L 04/12/17 09:20 Pulse Rate 64 04/12/17 10:59 Respiratory Rate 18 04/12/17 09:20 Blood Pressure 140/55 04/12/17 09:20 O2 Sat by Pulse Oximetry (%) 94 L 04/12/17 10:59 Constitutional: Yes: No Distress, Calm, Obese Eyes: Yes: Conjunctiva Clear, EOM Intact, PERRL HENT: Yes: Atraumatic, Normocephalic Neck: Yes: Supple, Trachea Midline Cardiovascular: Yes: Regular Rate and Rhythm, S1, S2. No: Bradycardia, Tachycardia, Pulse Irregular, Bruit, JVD, Gallop, Murmur, Rub, S3, S4, Varicosities Respiratory: Yes: Regular, Diminished. No: Rales, Rhonchi, SOB, Wheezes Gastrointestinal: Yes: Normal Bowel Sounds, Soft. No: Distention, Tenderness Extremities: Yes: WNL Edema: No Peripheral Pulses WNL: Yes Peripheral Pulses: Left Doralis Pedis: 2+, Right Dorsalis Pedis: 2+ Neurological: Yes: Alert, Oriented Psychiatric: Yes: Alert, Oriented Labs: CBC, BMP 04/11/17 06:30 04/12/17 08:00 - ....Imaging Chest X-ray: Report Reviewed, Image Reviewed EKG: Report Reviewed, Image Reviewed Other: Report Reviewed, Image Reviewed Assessment/Plan 57 year old woman h/o COPD heavy smoker, ILD, PSVT likely aflutter, HTN, DMII, chronic diastolic CHF, normal coronary arteries on last cardiac cath, obesity, likely MERT admitted with sob, edema. IMP: Acute exacerbation of COPD Possible Interstitial lung disease vs mild pulmonary congestion PHTN, severe Morbid obesity Mild acute on chronic diastolic CHF Component of right sided CHF due to PHTN PAF/PSVT HTN REC: Steroids as per pulmonary Abx as per ID Edema improved, cont current bumex dose HTN was uncontrolled on admission, pt reports not taking her meds on day of admission BP now adequately controlled after resuming home medications NSR on admission, of note patient has refused AC for possible paroxysmal aflutter; continue Toprol and ASA therapy. Plan was for outpatient holter and further discussions about the benefits of intermission coordinator AC. Pt is acceptable from a cardiac standpoint for discharge planning with a plan for close outpatient f/up within 1-2 weeks of discharge. No additional inpatient cardiac work up is needed at this time. Please call with any additional questions
[2017-04-12] MEDS ORDERED: INSULIN (NOVOLOG) ASPART 100 UNITS/ML 10ML VIAL ONE (12:18)
--- NOTE | 2017-04-12 14:10 | PN ---
Progress Note, Physician History of Present Illness: PULMONARY ALERT,LESS DYSPNEIC,LESS COUGH - Current Medication List Current Medications: Active Medications Acetaminophen (Tylenol -) 650 mg PO Q6H PRN PRN Reason: FEVER OR PAIN Last Admin: 04/11/17 10:56 Dose: 650 mg Albuterol/Ipratropium (Duoneb -) 1 amp NEB QIDR ON [facility] OF [facility] Last Admin: 04/12/17 11:00 Dose: 1 amp Ascorbic Acid (Vitamin C -) 500 mg PO DAILY [facility] Last Admin: 04/12/17 09:35 Dose: 500 mg Aspirin (Asa -) 81 mg PO DAILY [facility] Last Admin: 04/12/17 09:35 Dose: 81 mg Atorvastatin Calcium (Lipitor -) 20 mg PO HS [facility] Last Admin: 04/11/17 21:49 Dose: 20 mg Bumetanide (Bumex -) 2 mg PO DAILY [facility] Last Admin: 04/12/17 09:35 Dose: 2 mg Cholecalciferol (Vitamin D3 -) 1,000 unit PO DAILY [facility] Last Admin: 04/12/17 09:35 Dose: 1,000 unit Enalapril Maleate (Vasotec -) 5 mg PO BID [facility] Last Admin: 04/12/17 09:35 Dose: 5 mg Folic Acid (Folic Acid -) 1 mg PO DAILY [facility] Last Admin: 04/12/17 09:35 Dose: 1 mg Glipizide (Glucotrol -) 5 mg PO DAILY@0700 [facility] Last Admin: 04/12/17 06:27 Dose: 5 mg Heparin Sodium (Porcine) (Heparin -) 5,000 unit SQ TID ON [facility] Last Admin: 04/12/17 14:03 Dose: 5,000 unit CEFTRIAXONE 1 G/50 ML PREMIX (Ceftriaxone 1 Gm-D5w Bag) 50 mls @ 100 mls/hr IVPB DAILY [facility] Last Admin: 04/12/17 09:34 Dose: 100 mls/hr Doxycycline Hyclate 100 mg/ (Dextrose) 100 mls @ 50 mls/hr IVPB BID ON [facility] Last Admin: 04/12/17 09:36 Dose: 50 mls/hr Insulin Aspart (Novolog Vial Sliding Scale -) 1 vial SQ ACHS ON [facility] OF [facility] PRN Reason: Protocol Last Admin: 04/12/17 12:28 Dose: 2 units Insulin Detemir (Levemir Vial) 5 units SQ HS ON [facility] Last Admin: 04/11/17 21:49 Dose: 5 unit Methylprednisolone Sodium Succinate (Solu-Medrol -) 40 mg IVPUSH Q8H-IV ON [facility] OF [facility] Last Admin: 04/12/17 10:38 Dose: 40 mg Metoprolol Succinate (Toprol Xl -) 25 mg PO BID [facility] Last Admin: 04/12/17 09:35 Dose: 25 mg Montelukast Sodium (Singulair -) 10 mg PO HS [facility] Last Admin: 04/11/17 21:49 Dose: 10 mg Nifedipine (Procardia Xl -) 30 mg PO DAILY [facility] Last Admin: 04/12/17 09:35 Dose: 30 mg Oxycodone HCl (Roxicodone -) 5 mg PO Q4H PRN PRN Reason: PAIN Last Admin: 04/11/17 19:14 Dose: 5 mg Pantoprazole Sodium (Protonix -) 40 mg PO DAILY [facility] Last Admin: 04/12/17 09:35 Dose: 40 mg - Objective Vital Signs: Vital Signs Temperature 97.5 F L 04/12/17 09:20 Pulse Rate 64 04/12/17 10:59 Respiratory Rate 18 04/12/17 09:20 Blood Pressure 140/55 04/12/17 09:20 O2 Sat by Pulse Oximetry (%) 94 L 04/12/17 10:59 Constitutional: Yes: Well Nourished, Calm Eyes: Yes: WNL HENT: Yes: WNL Neck: Yes: WNL Cardiovascular: Yes: Regular Rate and Rhythm, S1, S2 Respiratory: Yes: Rhonchi (FEW RHONCHI) Gastrointestinal: Yes: Normal Bowel Sounds, Soft Extremities: Yes: WNL Edema: No Labs: CBC, BMP 04/12/17 08:00 Problem List - Problems (1) A-fib Code(s): I48.91 - UNSPECIFIED ATRIAL FIBRILLATION (2) Acute respiratory failure with hypoxia Code(s): J96.01 - ACUTE RESPIRATORY FAILURE WITH HYPOXIA (3) HLD (hyperlipidemia) Code(s): E78.5 - HYPERLIPIDEMIA, UNSPECIFIED (4) Pneumonia Code(s): J18.9 - PNEUMONIA, UNSPECIFIED ORGANISM Qualifiers: Pneumonia type: due to unspecified organism Laterality: bilateral Lung location: lower lobe of lung Qualified Code(s): J18.9 - Pneumonia, unspecified organism; J18.9 - Pneumonia, unspecified organism (5) Asthma Code(s): J45.909 - UNSPECIFIED ASTHMA, UNCOMPLICATED (6) Fever Code(s): R50.9 - FEVER, UNSPECIFIED (7) Diabetes mellitus treated with oral medication Code(s): E11.9 - TYPE 2 DIABETES MELLITUS WITHOUT COMPLICATIONS (8) Obesity, morbid, BMI 50 or higher Code(s): E66.01 - MORBID (SEVERE) OBESITY DUE TO EXCESS CALORIES (9) Sleep apnea Code(s): G47.30 - SLEEP APNEA, UNSPECIFIED (10) Pulmonary HTN Code(s): I27.20 - PULMONARY HYPERTENSION, UNSPECIFIED (11) Interstitial lung disease Code(s): J84.9 - INTERSTITIAL PULMONARY DISEASE, UNSPECIFIED (12) COPD (chronic obstructive pulmonary disease) Code(s): J44.9 - CHRONIC OBSTRUCTIVE PULMONARY DISEASE, UNSPECIFIED (13) Tobacco abuse Code(s): Z72.0 - TOBACCO USE (14) Tobacco abuse counseling Code(s): Z71.6 - TOBACCO ABUSE COUNSELING Assessment/Plan IMP ACUTE HYPOXEMIC RESPIRATORY FAILURE IMPROVING COPD EXACERBATION ? PNEUMONIA ILD PULMONARY HTN AFIB NIDDM HTN OSAS TOBACCO ABUSE PLAN CONTINUE V STEROIDS SAME DOSE INHALED BRONCHODILATORS O2 ANTIBIOTICS PFTS OUTPATIENT F/U CHEST CT OUTPATIENT COMPLIANCE WITH CPAP SMOKING CESSATION COUNSELED DR LORA Problem List - Problems (1) A-fib Code(s): I48.91 - UNSPECIFIED ATRIAL FIBRILLATION (2) Acute respiratory failure with hypoxia Code(s): J96.01 - ACUTE RESPIRATORY FAILURE WITH HYPOXIA (3) HLD (hyperlipidemia) Code(s): E78.5 - HYPERLIPIDEMIA, UNSPECIFIED (4) Pneumonia Code(s): J18.9 - PNEUMONIA, UNSPECIFIED ORGANISM Qualifiers: Pneumonia type: due to unspecified organism Laterality: bilateral Lung location: lower lobe of lung Qualified Code(s): J18.9 - Pneumonia, unspecified organism; J18.9 - Pneumonia, unspecified organism (5) Asthma Code(s): J45.909 - UNSPECIFIED ASTHMA, UNCOMPLICATED (6) Fever Code(s): R50.9 - FEVER, UNSPECIFIED (7) Diabetes mellitus treated with oral medication Code(s): E11.9 - TYPE 2 DIABETES MELLITUS WITHOUT COMPLICATIONS (8) Obesity, morbid, BMI 50 or higher Code(s): E66.01 - MORBID (SEVERE) OBESITY DUE TO EXCESS CALORIES (9) Sleep apnea Code(s): G47.30 - SLEEP APNEA, UNSPECIFIED (10) Pulmonary HTN Code(s): I27.20 - PULMONARY HYPERTENSION, UNSPECIFIED (11) Interstitial lung disease Code(s): J84.9 - INTERSTITIAL PULMONARY DISEASE, UNSPECIFIED (12) COPD (chronic obstructive pulmonary disease) Code(s): J44.9 - CHRONIC OBSTRUCTIVE PULMONARY DISEASE, UNSPECIFIED (13) Tobacco abuse Code(s): Z72.0 - TOBACCO USE (14) Tobacco abuse counseling Code(s): Z71.6 - TOBACCO ABUSE COUNSELING
--- NOTE | 2017-04-12 17:02 | PN ---
Physical Exam: SUBJECTIVE: Patient seen and examined, states she feels better. Breathing improving. OBJECTIVE: Vital Signs Period Temp Pulse Resp BP Sys/Betancourt Pulse Ox Last 24 Hr 97.5 F-98.2 F 63-76 18-20 140-156/55-87 94-94 GENERAL: The patient is awake, alert, and fully oriented, in no acute distress. HEAD: Normal with no signs of trauma. EYES: PERRL, extraocular movements intact, sclera anicteric, conjunctiva clear. No ptosis. ENT: Ears normal, nares patent, oropharynx clear without exudates, moist mucous membranes. NECK: Trachea midline, full range of motion, supple. LUNGS: Diminished breath sounds, no wheezing, on 2 liters nasal cannula HEART: Regular rate and rhythm ABDOMEN: Soft, nontender, nondistended, normoactive bowel sounds, no guarding, no rebound, no hepatosplenomegaly, no masses. EXTREMITIES: trace edema bilateral lower ext NEUROLOGICAL: Normal speech, gait not observed. PSYCH: Normal mood, normal affect. SKIN: Warm, dry, normal turgor, no rashes or lesions noted Laboratory Results - last 24 hr 04/11/17 04/12/17 04/12/17 21:38 06:03 08:00 Sodium 138 Potassium 3.8 Chloride 104 Carbon Dioxide 26 Anion Gap 8 BUN 14 D Creatinine 0.7 Creat Clearance w eGFR > 60 POC Glucometer 279 292 Random Glucose 227 H Calcium 8.8 Total Bilirubin 0.5 AST 19 ALT 37 Alkaline Phosphatase 110 Total Protein 7.4 Albumin 3.3 L 04/12/17 11:48 Sodium Potassium Chloride Carbon Dioxide Anion Gap BUN Creatinine Creat Clearance w eGFR POC Glucometer 185 Random Glucose Calcium Total Bilirubin AST ALT Alkaline Phosphatase Total Protein Albumin Active Medications Generic Name Dose Route Start Last Admin Trade Name Freq PRN Reason Stop Dose Admin Acetaminophen 650 mg 04/10/17 04:57 04/11/17 10:56 Tylenol - PO 650 mg Q6H PRN Administration FEVER OR PAIN Albuterol/Ipratropium 1 amp 04/10/17 06:00 04/12/17 11:00 Duoneb - NEB 1 amp QIDR HIRAM Administration Ascorbic Acid 500 mg 04/10/17 10:00 04/12/17 09:35 Vitamin C - PO 500 mg DAILY H[facility]AM Administration Aspirin 81 mg 04/10/17 10:00 04/12/17 09:35 Asa - PO 81 mg DAILY [facility]AM Administration Atorvastatin Calcium 20 mg 04/10/17 22:00 04/11/17 21:49 Lipitor - PO 20 mg HS HIRAM Administration Bumetanide 2 mg 04/11/17 10:00 04/12/17 09:35 Bumex - PO 2 mg DAILY [facility]AM Administration Cholecalciferol 1,000 unit 04/10/17 10:00 04/12/17 09:35 Vitamin D3 - PO 1,000 unit DAILY [facility] Administration Enalapril Maleate 5 mg 04/10/17 14:30 04/12/17 09:35 Vasotec - PO 5 mg BID [facility]AM Administration Folic Acid 1 mg 04/10/17 10:00 04/12/17 09:35 Folic Acid - PO 1 mg DAILY [facility] Administration Glipizide 5 mg 04/12/17 07:00 04/12/17 06:27 Glucotrol - PO 5 mg DAILY@0700 [facility] Administration Heparin Sodium (Porcine) 5,000 unit 04/10/17 06:00 04/12/17 14:03 Heparin - SQ 5,000 unit TID HIRAM Administration CEFTRIAXONE 1 G/50 ML PREMIX 50 mls @ 100 mls/hr 04/11/17 10:00 04/12/17 09:34 Ceftriaxone 1 Gm-D5w Bag IVPB 100 mls/hr DAILY [facility] Administration Doxycycline Hyclate 100 mg/ 100 mls @ 50 mls/hr 04/10/17 10:00 04/12/17 09:36 Dextrose IVPB 50 mls/hr BID [facility]IRAM Administration Insulin Aspart 1 vial 04/11/17 18:09 04/12/17 12:28 Novolog Vial Sliding Scale - SQ 2 units ACHS [facility]IRAM Administration Protocol Insulin Detemir 5 units 04/11/17 22:00 04/11/17 21:49 Levemir Vial SQ 5 unit HS [facility]IRAM Administration Methylprednisolone Sodium Succinate 40 mg 04/10/17 18:00 04/12/17 10:38 Solu-Medrol - IVPUSH 40 mg Q8H-IV [facility] Administration Metoprolol Succinate 25 mg 04/10/17 22:00 04/12/17 09:35 Toprol Xl - PO 25 mg BID [facility]AM Administration Montelukast Sodium 10 mg 04/10/17 22:00 04/11/17 21:49 Singulair - PO 10 mg HS [facility]AM Administration Nifedipine 30 mg 04/10/17 10:00 04/12/17 09:35 Procardia Xl - PO 30 mg DAILY [facility] Administration Oxycodone HCl 5 mg 04/10/17 18:27 04/11/17 19:14 Roxicodone - PO 5 mg Q4H PRN Administration PAIN Pantoprazole Sodium 40 mg 04/12/17 10:00 04/12/17 09:35 Protonix - PO 40 mg DAILY [facility]AM Administration ASSESSMENT/PLAN: Patient is a 57 year old woman with a significant past medical history of HTN, HLD, NIDDM, Afib (not on any anticoagulation), asthma, MERT and morbid obesity. Patient presents to the ED with worsening shortness of breath, dyspnea on exertion, cough, fever and chills. On admission she reported cleaning her home for an inspection with exposure to dust as well as using non toxic bean snipper to keep room well ventilatd. She reports that her breathing became worse and came to ER. She was recently treated for bronchitis on 03/22 with a [place]. On todays exam, patient reported shortness of breath relived with supplemental oxygen. She was sitting in the chair, in no acute distress. Pulmonary: Pneumonia, acute Asthma exacerbation, acute On scheduled duonebs Solumedrol 40mg q8 Influenza negatrive, Legionella negative On Ceftriaxone and Doxycycline per ID On 2 liters supplemental oxygen Incentive spirometer as tolerated Pulmonary consulted Cardiology: Hypertension On Procardia XL, Vasotec BID Afib history, to continue outpatient workup, not on an a/c at this time Cardiology notes reviewed CHF, chronic On Bumex Monitor intake and output Endocrine: Diabetes, chronic, hyperglycemia in the setting of steroid use Levemir 5 units tonight, monitor Home Glypizide ordered F.E.N. Fludis: tolerating PO Electrolytes: monitor Nutrition: low sodium Prophy: DVT: ambulation, GI: Protonix
[2017-04-12] MEDS: MONTELUKAST NA 10 MG TABLET PO SCH (21:30)
[2017-04-12] MEDS: INSULIN DETEMIR 100 UNITS/ML MDV SQ SCH (21:31)
[2017-04-12] MEDS: ATORVASTATIN CA 20 MG TABLET (FP) PO SCH (21:31)
[2017-04-12] MEDS: oxyCODONE HCL 5 MG TABLET PO PRN (22:36)
[2017-04-13] MEDS: methylPREDNISolone NA SUCC 40 MG/1 ML VIAL IVPUSH SCH ×4 (01:34→22:05)
[2017-04-13] MEDS ORDERED: INSULIN (NOVOLOG) ASPART 100 UNITS/ML 10ML VIAL ONE (05:57)
[2017-04-13] MEDS: glipiZIDE 5 MG TABLET (FP) PO SCH (06:33)
[2017-04-13] MEDS: HEPARIN NA (PORCINE) 5,000 UNITS/ML 1ML VIAL SQ SCH (06:33)
[2017-04-13] MEDS: INSULIN SLIDING SCALE (NOVOLOG) 1 VIAL SQ SCH ×4 (06:33→22:08)
[2017-04-13] MEDS: ALBUTEROL SO4 2.5/IPRATROPIUM 0.5 INH SOL 3 ML VIAL.NEB. NEB SCH ×4 (06:41→23:04)
[2017-04-13 07:46] LABS: BASOPHIL 0.1 % (0-2.0); MCH 29.7 pg (25.7-33.7); MCHC 32.6 g/dl (32.0-36.0); MEAN CELL VOLUME 91.4 fl (80-96); MEAN PLT VOLUME 9.3 fl (7.5-11.1); NEUTROPHILS 80.8 % (42.8-82.8); PLATELET COUNT 205 K/MM3 (134-434); RDW 15.4 % (11.6-15.6); WHITE BLOOD COUNT 7.4 K/mm3 (4.0-10.0)
[2017-04-13 08:28] LABS: ALBUMIN 3.3 g/dl (3.4-5.0); ALK PHOS 108 U/L (45-117); ANION GAP 11 (8-16); BILIRUBIN,TOTAL 0.4 mg/dL (0.2-1.0); CALCIUM 8.2 mg/dL (8.5-10.1); CO2 25 mmol/L (21-32); CREATININE 0.7 mg/dL (0.55-1.02); GLUCOSE,RANDOM 213 mg/dL (74-106); MAGNESIUM 1.9 mg/dL (1.8-2.4); SGOT/AST 14 U/L (15-37); SGPT/ALT 34 U/L (12-78); TOT PROT 7.2 g/dl (6.4-8.2)
[2017-04-13] MEDS ORDERED: PT OWN MED DRAWER 7, Y5N ONE ×2 (09:08→21:55)
[2017-04-13] MEDS: ASCORBIC ACID 500 MG TABLET (FP) PO SCH (09:09)
[2017-04-13] MEDS: ENALAPRIL MALEATE 2.5 MG TABLET (FP) PO SCH ×2 (09:09→22:05)
[2017-04-13] MEDS: FOLIC ACID 1 MG TABLET (FP) PO SCH (09:10)
[2017-04-13] MEDS: NIFEdipine E.R. 30 MG TABLET (FP) PO SCH (09:10)
[2017-04-13] MEDS: oxyCODONE HCL 5 MG TABLET PO PRN ×2 (09:10→14:55)
[2017-04-13] MEDS: CHOLECALCIFEROL (VITAMIN D3) 1,000 UNIT TABLET (FP) PO SCH (09:10)
[2017-04-13] MEDS: BUMETANIDE 1 MG TABLET PO SCH (09:10)
[2017-04-13] MEDS: ASPIRIN 81 MG CHEWABLE TABLETS PO SCH (09:10)
[2017-04-13] MEDS: PANTOPRAZOLE 40 MG TABLET (FP) PO SCH (09:10)
[2017-04-13] MEDS: METOPROLOL SUCCINATE 25 MG TAB.SR.24H (FP) PO SCH ×2 (09:10→22:05)
[2017-04-13] MEDS: CEFTRIAXONE 1 G/50 ML PREMIX 50 ML IVPB SCH (09:11)
[2017-04-13] MEDS: DOXYCYCLINE INJECTION 100 MG in DEXTROSE 5%-WATER - 100 ML IVPB SCH ×2 (10:05→22:04)
--- NOTE | 2017-04-13 11:35 | PN ---
Progress Note, Physician History of Present Illness: seen and examined today in nad. states she is feeling better. coughing with some blood tinged sputum. - Current Medication List Current Medications: Active Medications Acetaminophen (Tylenol -) 650 mg PO Q6H PRN PRN Reason: FEVER OR PAIN Last Admin: 04/11/17 10:56 Dose: 650 mg Albuterol/Ipratropium (Duoneb -) 1 amp NEB QIDR [facility] Last Admin: 04/13/17 06:41 Dose: 1 amp Ascorbic Acid (Vitamin C -) 500 mg PO DAILY [facility] Last Admin: 04/13/17 09:09 Dose: 500 mg Aspirin (Asa -) 81 mg PO DAILY [facility] Last Admin: 04/13/17 09:10 Dose: 81 mg Atorvastatin Calcium (Lipitor -) 20 mg PO HS [facility] Last Admin: 04/12/17 21:31 Dose: 20 mg Bumetanide (Bumex -) 2 mg PO DAILY [facility] Last Admin: 04/13/17 09:10 Dose: 2 mg Cholecalciferol (Vitamin D3 -) 1,000 unit PO DAILY [facility] Last Admin: 04/13/17 09:10 Dose: 1,000 unit Enalapril Maleate (Vasotec -) 5 mg PO BID [facility] Last Admin: 04/13/17 09:09 Dose: 5 mg Folic Acid (Folic Acid -) 1 mg PO DAILY [facility] Last Admin: 04/13/17 09:10 Dose: 1 mg Glipizide (Glucotrol -) 5 mg PO DAILY@0700 [facility] Last Admin: 04/13/17 06:33 Dose: 5 mg Heparin Sodium (Porcine) (Heparin -) 5,000 unit SQ TID [facility] Last Admin: 04/13/17 06:33 Dose: 5,000 unit CEFTRIAXONE 1 G/50 ML PREMIX (Ceftriaxone 1 Gm-D5w Bag) 50 mls @ 100 mls/hr IVPB DAILY [facility] Last Admin: 04/13/17 09:11 Dose: 100 mls/hr Doxycycline Hyclate 100 mg/ (Dextrose) 100 mls @ 50 mls/hr IVPB BID [facility] Last Admin: 04/13/17 10:05 Dose: 50 mls/hr Insulin Aspart (Novolog Vial Sliding Scale -) 1 vial SQ ACHS [facility] PRN Reason: Protocol Last Admin: 04/13/17 06:33 Dose: 4 units Insulin Detemir (Levemir Vial) 5 units SQ HS [facility] Last Admin: 04/12/17 21:31 Dose: 5 unit Methylprednisolone Sodium Succinate (Solu-Medrol -) 40 mg IVPUSH Q8H-IV [facility] Last Admin: 04/13/17 09:09 Dose: 40 mg Metoprolol Succinate (Toprol Xl -) 25 mg PO BID [facility] Last Admin: 04/13/17 09:10 Dose: 25 mg Montelukast Sodium (Singulair -) 10 mg PO HS [facility] Last Admin: 04/12/17 21:30 Dose: 10 mg Nifedipine (Procardia Xl -) 30 mg PO DAILY [facility] Last Admin: 04/13/17 09:10 Dose: 30 mg Oxycodone HCl (Roxicodone -) 5 mg PO Q4H PRN PRN Reason: PAIN Last Admin: 04/13/17 09:10 Dose: 5 mg Pantoprazole Sodium (Protonix -) 40 mg PO DAILY [facility] Last Admin: 04/13/17 09:10 Dose: 40 mg - Objective Vital Signs: Vital Signs Temperature 98.4 F 04/13/17 10:00 Pulse Rate 66 04/13/17 10:00 Respiratory Rate 20 04/13/17 10:00 Blood Pressure 136/68 04/13/17 10:00 O2 Sat by Pulse Oximetry (%) 94 L 04/12/17 21:00 Constitutional: Yes: No Distress, Calm, Obese Eyes: Yes: Conjunctiva Clear, EOM Intact, PERRL HENT: Yes: Atraumatic, Normocephalic Neck: Yes: Supple, Trachea Midline Cardiovascular: Yes: Regular Rate and Rhythm, S1, S2. No: Bradycardia, Tachycardia, Pulse Irregular, Bruit, JVD, Gallop, Murmur, Rub, S3, S4, Varicosities Respiratory: Yes: Regular. No: Rales, Rhonchi, Wheezes Gastrointestinal: Yes: Normal Bowel Sounds, Soft. No: Distention, Tenderness Extremities: Yes: WNL Edema: No Peripheral Pulses WNL: Yes Peripheral Pulses: Left Doralis Pedis: 2+, Right Dorsalis Pedis: 2+ Neurological: Yes: Alert, Oriented Psychiatric: Yes: Alert, Oriented Labs: CBC, BMP 04/13/17 05:45 04/13/17 05:45 - ....Imaging Chest X-ray: Report Reviewed, Image Reviewed EKG: Report Reviewed, Image Reviewed Other: Report Reviewed, Image Reviewed Assessment/Plan 57 year old woman h/o COPD heavy smoker, ILD, PSVT likely aflutter, HTN, DMII, chronic diastolic CHF, normal coronary arteries on last cardiac cath, obesity, likely MERT admitted with sob, edema. IMP: Acute exacerbation of COPD Possible Interstitial lung disease vs mild pulmonary congestion PHTN, severe Morbid obesity Mild acute on chronic diastolic CHF Component of right sided CHF due to PHTN PAF/PSVT HTN REC: Steroids as per pulmonary Abx as per ID Edema improved, cont current bumex dose HTN adequately controlled currently, cont current medical regimen No additional inpatient cardiac work up is needed at this time. Pt is acceptable from a cardiac standpoint for discharge planning with a plan for close outpatient f/up within 1-2 weeks of discharge. Please call with any additional questions
--- NOTE | 2017-04-13 12:04 | PN ---
Progress Note (short form) - Note Progress Note: Breathing feels a little better today. Less cough and SOB. No CP. Has CPAP at home but has not been using due to mask issues (left eye injury). Intake & Output 04/11/17 04/12/17 04/12/17 04/13/17 00:59 00:59 23:59 23:59 Intake Total 200 Output Total Balance 200 Weight Last Vital Signs Temp Pulse Resp BP Pulse Ox 98.4 F 66 20 136/68 97 04/13/17 10:00 04/13/17 10:00 04/13/17 10:00 04/13/17 10:00 04/13/17 09:50 Active Medications Acetaminophen (Tylenol -) 650 mg PO Q6H PRN PRN Reason: FEVER OR PAIN Last Admin: 04/11/17 10:56 Dose: 650 mg Albuterol/Ipratropium (Duoneb -) 1 amp NEB QIDR [facility] Last Admin: 04/13/17 11:15 Dose: 1 amp Ascorbic Acid (Vitamin C -) 500 mg PO DAILY [facility] Last Admin: 04/13/17 09:09 Dose: 500 mg Aspirin (Asa -) 81 mg PO DAILY [facility] Last Admin: 04/13/17 09:10 Dose: 81 mg Atorvastatin Calcium (Lipitor -) 20 mg PO HS [facility] Last Admin: 04/12/17 21:31 Dose: 20 mg Bumetanide (Bumex -) 2 mg PO DAILY [facility] Last Admin: 04/13/17 09:10 Dose: 2 mg Cholecalciferol (Vitamin D3 -) 1,000 unit PO DAILY [facility] Last Admin: 04/13/17 09:10 Dose: 1,000 unit Enalapril Maleate (Vasotec -) 5 mg PO BID [facility] Last Admin: 04/13/17 09:09 Dose: 5 mg Folic Acid (Folic Acid -) 1 mg PO DAILY [facility] Last Admin: 04/13/17 09:10 Dose: 1 mg Glipizide (Glucotrol -) 5 mg PO DAILY@0700 [facility] Last Admin: 04/13/17 06:33 Dose: 5 mg Heparin Sodium (Porcine) (Heparin -) 5,000 unit SQ TID [facility] Last Admin: 04/13/17 06:33 Dose: 5,000 unit CEFTRIAXONE 1 G/50 ML PREMIX (Ceftriaxone 1 Gm-D5w Bag) 50 mls @ 100 mls/hr IVPB DAILY [facility] Last Admin: 04/13/17 09:11 Dose: 100 mls/hr Doxycycline Hyclate 100 mg/ (Dextrose) 100 mls @ 50 mls/hr IVPB BID [facility] Last Admin: 04/13/17 10:05 Dose: 50 mls/hr Insulin Aspart (Novolog Vial Sliding Scale -) 1 vial SQ ACHS [facility] PRN Reason: Protocol Last Admin: 04/13/17 11:51 Dose: 2 units Insulin Detemir (Levemir Vial) 5 units SQ HS [facility] Last Admin: 04/12/17 21:31 Dose: 5 unit Methylprednisolone Sodium Succinate (Solu-Medrol -) 40 mg IVPUSH Q8H-IV [facility] Last Admin: 04/13/17 09:09 Dose: 40 mg Metoprolol Succinate (Toprol Xl -) 25 mg PO BID [facility] Last Admin: 04/13/17 09:10 Dose: 25 mg Montelukast Sodium (Singulair -) 10 mg PO HS [facility] Last Admin: 04/12/17 21:30 Dose: 10 mg Nifedipine (Procardia Xl -) 30 mg PO DAILY [facility] Last Admin: 04/13/17 09:10 Dose: 30 mg Oxycodone HCl (Roxicodone -) 5 mg PO Q4H PRN PRN Reason: PAIN Last Admin: 04/13/17 09:10 Dose: 5 mg Pantoprazole Sodium (Protonix -) 40 mg PO DAILY [facility] Last Admin: 04/13/17 09:10 Dose: 40 mg Constitutional: Yes: NAD Eyes: Yes: WNL HENT: Yes: WNL Neck: Yes: WNL Cardiovascular: Yes: Regular Rate and Rhythm, S1, S2 Respiratory: Yes: Scattered bilateral Rhonchi, no wheeze Gastrointestinal: Yes: Normal Bowel Sounds, Soft, obese Extremities: Yes: WNL Edema: No Labs: Laboratory Results - last 24 hr 04/12/17 04/12/17 04/12/17 11:48 17:14 21:22 WBC RBC Hgb Hct MCV MCH MCHC RDW Plt Count MPV Neutrophils % Lymphocytes % Monocytes % Eosinophils % Basophils % Sodium Potassium Chloride Carbon Dioxide Anion Gap BUN Creatinine Creat Clearance w eGFR POC Glucometer 185 199 335 Random Glucose Calcium Magnesium Total Bilirubin AST ALT Alkaline Phosphatase Total Protein Albumin 1104/13/17 04/13/17 05:39 05:45 05:45 WBC 7.4 RBC 4.19 Hgb 12.5 Hct 38.2 MCV 91.4 MCH 29.7 MCHC 32.6 RDW 15.4 Plt Count 205 MPV 9.3 Neutrophils % 80.8 Lymphocytes % 13.2 Monocytes % 5.9 Eosinophils % 0.0 Basophils % 0.1 Sodium 138 Potassium 3.8 Chloride 102 Carbon Dioxide 25 Anion Gap 11 BUN 18 D Creatinine 0.7 Creat Clearance w eGFR > 60 POC Glucometer 216 Random Glucose 213 H Calcium 8.2 L Magnesium 1.9 Total Bilirubin 0.4 AST 14 L D ALT 34 Alkaline Phosphatase 108 Total Protein 7.2 Albumin 3.3 L Problem List - Problems (1) A-fib Code(s): I48.91 - UNSPECIFIED ATRIAL FIBRILLATION (2) Acute respiratory failure with hypoxia Code(s): J96.01 - ACUTE RESPIRATORY FAILURE WITH HYPOXIA (3) HLD (hyperlipidemia) Code(s): E78.5 - HYPERLIPIDEMIA, UNSPECIFIED (4) Pneumonia Code(s): J18.9 - PNEUMONIA, UNSPECIFIED ORGANISM Qualifiers: Pneumonia type: due to unspecified organism Laterality: bilateral Lung location: lower lobe of lung Qualified Code(s): J18.9 - Pneumonia, unspecified organism; J18.9 - Pneumonia, unspecified organism (5) Asthma Code(s): J45.909 - UNSPECIFIED ASTHMA, UNCOMPLICATED (6) Fever Code(s): R50.9 - FEVER, UNSPECIFIED (7) Diabetes mellitus treated with oral medication Code(s): E11.9 - TYPE 2 DIABETES MELLITUS WITHOUT COMPLICATIONS (8) Obesity, morbid, BMI 50 or higher Code(s): E66.01 - MORBID (SEVERE) OBESITY DUE TO EXCESS CALORIES (9) Sleep apnea Code(s): G47.30 - SLEEP APNEA, UNSPECIFIED (10) Pulmonary HTN Code(s): I27.20 - PULMONARY HYPERTENSION, UNSPECIFIED (11) Interstitial lung disease Code(s): J84.9 - INTERSTITIAL PULMONARY DISEASE, UNSPECIFIED (12) COPD (chronic obstructive pulmonary disease) Code(s): J44.9 - CHRONIC OBSTRUCTIVE PULMONARY DISEASE, UNSPECIFIED (13) Tobacco abuse Code(s): Z72.0 - TOBACCO USE (14) Tobacco abuse counseling Code(s): Z71.6 - TOBACCO ABUSE COUNSELING Assessment/Plan IMP ACUTE HYPOXEMIC RESPIRATORY FAILURE IMPROVING COPD EXACERBATION ? PNEUMONIA ILD PULMONARY HTN AFIB NIDDM HTN OSAS TOBACCO ABUSE PLAN STEROID TAPER INHALED BRONCHODILATORS O2 ANTIBIOTICS PFTS OUTPATIENT F/U CHEST CT OUTPATIENT COMPLIANCE WITH CPAP DISCUSSED : NEEDS NEW MASK SMOKING CESSATION COUNSELED DR NARAYAN
--- NOTE | 2017-04-13 12:16 | PN ---
Progress Note, Physician History of Present Illness: patient now feeling better says she he is coughing more hads some blood yesterday needing o2 - Current Medication List Current Medications: Active Medications Acetaminophen (Tylenol -) 650 mg PO Q6H PRN PRN Reason: FEVER OR PAIN Last Admin: 04/11/17 10:56 Dose: 650 mg Albuterol/Ipratropium (Duoneb -) 1 amp NEB QIDR [facility] Last Admin: 04/13/17 11:15 Dose: 1 amp Ascorbic Acid (Vitamin C -) 500 mg PO DAILY [facility] Last Admin: 04/13/17 09:09 Dose: 500 mg Aspirin (Asa -) 81 mg PO DAILY [facility] Last Admin: 04/13/17 09:10 Dose: 81 mg Atorvastatin Calcium (Lipitor -) 20 mg PO HS [facility] Last Admin: 04/12/17 21:31 Dose: 20 mg Bumetanide (Bumex -) 2 mg PO DAILY [facility] Last Admin: 04/13/17 09:10 Dose: 2 mg Cholecalciferol (Vitamin D3 -) 1,000 unit PO DAILY [facility] Last Admin: 04/13/17 09:10 Dose: 1,000 unit Enalapril Maleate (Vasotec -) 5 mg PO BID [facility] Last Admin: 04/13/17 09:09 Dose: 5 mg Folic Acid (Folic Acid -) 1 mg PO DAILY [facility] Last Admin: 04/13/17 09:10 Dose: 1 mg Glipizide (Glucotrol -) 5 mg PO DAILY@0700 [facility] Last Admin: 04/13/17 06:33 Dose: 5 mg Heparin Sodium (Porcine) (Heparin -) 5,000 unit SQ TID [facility] Last Admin: 04/13/17 06:33 Dose: 5,000 unit CEFTRIAXONE 1 G/50 ML PREMIX (Ceftriaxone 1 Gm-D5w Bag) 50 mls @ 100 mls/hr IVPB DAILY [facility] Last Admin: 04/13/17 09:11 Dose: 100 mls/hr Doxycycline Hyclate 100 mg/ (Dextrose) 100 mls @ 50 mls/hr IVPB BID [facility] Last Admin: 04/13/17 10:05 Dose: 50 mls/hr Insulin Aspart (Novolog Vial Sliding Scale -) 1 vial SQ ACHS [facility] PRN Reason: Protocol Last Admin: 04/13/17 11:51 Dose: 2 units Insulin Detemir (Levemir Vial) 5 units SQ HS [facility] Last Admin: 04/12/17 21:31 Dose: 5 unit Methylprednisolone Sodium Succinate (Solu-Medrol -) 40 mg IVPUSH Q12H [facility] Metoprolol Succinate (Toprol Xl -) 25 mg PO BID [facility] Last Admin: 04/13/17 09:10 Dose: 25 mg Montelukast Sodium (Singulair -) 10 mg PO HS [facility] Last Admin: 04/12/17 21:30 Dose: 10 mg Nifedipine (Procardia Xl -) 30 mg PO DAILY [facility] Last Admin: 04/13/17 09:10 Dose: 30 mg Oxycodone HCl (Roxicodone -) 5 mg PO Q4H PRN PRN Reason: PAIN Last Admin: 04/13/17 09:10 Dose: 5 mg Pantoprazole Sodium (Protonix -) 40 mg PO DAILY [facility] Last Admin: 04/13/17 09:10 Dose: 40 mg - Objective Vital Signs: Vital Signs Temperature 98.4 F 04/13/17 10:00 Pulse Rate 66 04/13/17 10:00 Respiratory Rate 20 04/13/17 10:00 Blood Pressure 136/68 04/13/17 10:00 O2 Sat by Pulse Oximetry (%) 97 04/13/17 09:50 Constitutional: Yes: No Distress, Calm, Obese Cardiovascular: Yes: Regular Rate and Rhythm Respiratory: Yes: Regular, Other Gastrointestinal: Yes: Normal Bowel Sounds, Soft Musculoskeletal: Yes: WNL Extremities: Yes: WNL Neurological: Yes: Alert, Oriented Psychiatric: Yes: Alert, Oriented Labs: CBC, BMP 04/13/17 05:45 04/13/17 05:45 Assessment/Plan This is a 57 y/o woman with a PMHx of: HTN, HLD, NIDDM, Afib (no AC), CHF, Asthma, MERT, Severe Obesity. Admitted for Bilateral Lower Pneumonia secondary to Failed Outpatient Therapy, Acute Respiratory Failure, Hypoxia for further evaluation of their emergent condition. Plan: 1. Pneumonia 2. Acute Respiratory Failure//Hypoxia 3. Asthma Exacerbation 3. HTN//HLD//Afib//CHF 4. NIDDM 5. MERT I am worried about the hemoptysis patient now on ceftriaxone plan continue abx incentive nick rest as per primary team monitor o2 sat if patient stable will deescalate
--- NOTE | 2017-04-13 13:57 | PN ---
Physical Exam: SUBJECTIVE: Patient seen and examined, states she feels her breathing has improved. OBJECTIVE: heparin stopped due to hemoptysis Vital Signs Period Temp Pulse Resp BP Sys/Betancourt Pulse Ox Last 24 Hr 97.6 F-98.4 F 56-82 20-21 136-156/68-89 94-97 GENERAL: The patient is awake, alert, and fully oriented, in no acute distress. HEAD: Normal with no signs of trauma. EYES: PERRL, extraocular movements intact, sclera anicteric, conjunctiva clear. No ptosis. ENT: Ears normal, nares patent, oropharynx clear without exudates, moist mucous membranes. NECK: Trachea midline, full range of motion, supple. LUNGS: Diminished breath sounds, no wheezing, on 2 liters nasal cannula, improved lung sounds HEART: Regular rate and rhythm ABDOMEN: Soft, nontender, nondistended, normoactive bowel sounds, no guarding, no rebound, no hepatosplenomegaly, no masses. EXTREMITIES: trace edema bilateral lower ext NEUROLOGICAL: Normal speech, gait not observed. PSYCH: Normal mood, normal affect. SKIN: Warm, dry, normal turgor, no rashes or lesions noted Laboratory Results - last 24 hr 04/12/17 04/12/17 04/13/17 17:14 21:22 05:39 WBC RBC Hgb Hct MCV MCH MCHC RDW Plt Count MPV Neutrophils % Lymphocytes % Monocytes % Eosinophils % Basophils % Sodium Potassium Chloride Carbon Dioxide Anion Gap BUN Creatinine Creat Clearance w eGFR POC Glucometer 199 335 216 Random Glucose Calcium Magnesium Total Bilirubin AST ALT Alkaline Phosphatase Total Protein Albumin 04/13/17 04/13/17 04/13/17 05:45 05:45 11:49 WBC 7.4 RBC 4.19 Hgb 12.5 Hct 38.2 MCV 91.4 MCH 29.7 MCHC 32.6 RDW 15.4 Plt Count 205 MPV 9.3 Neutrophils % 80.8 Lymphocytes % 13.2 Monocytes % 5.9 Eosinophils % 0.0 Basophils % 0.1 Sodium 138 Potassium 3.8 Chloride 102 Carbon Dioxide 25 Anion Gap 11 BUN 18 D Creatinine 0.7 Creat Clearance w eGFR > 60 POC Glucometer 195 Random Glucose 213 H Calcium 8.2 L Magnesium 1.9 Total Bilirubin 0.4 AST 14 L D ALT 34 Alkaline Phosphatase 108 Total Protein 7.2 Albumin 3.3 L Active Medications Generic Name Dose Route Start Last Admin Trade Name Corinne PRN Reason Stop Dose Admin Acetaminophen 650 mg 04/10/17 04:57 04/11/17 10:56 Tylenol - PO 650 mg Q6H PRN Administration FEVER OR PAIN Albuterol/Ipratropium 1 amp 04/10/17 06:00 04/13/17 11:15 Duoneb - NEB 1 amp QIDR [facility] Administration Ascorbic Acid 500 mg 04/10/17 10:00 04/13/17 09:09 Vitamin C - PO 500 mg DAILY [facility] Administration Aspirin 81 mg 04/10/17 10:00 04/13/17 09:10 Asa - PO 81 mg DAILY [facility] Administration Atorvastatin Calcium 20 mg 04/10/17 22:00 04/12/17 21:31 Lipitor - PO 20 mg HS [facility] Administration Bumetanide 2 mg 04/11/17 10:00 04/13/17 09:10 Bumex - PO 2 mg DAILY [facility] Administration Cholecalciferol 1,000 unit 04/10/17 10:00 04/13/17 09:10 Vitamin D3 - PO 1,000 unit DAILY [facility] Administration Enalapril Maleate 5 mg 04/10/17 14:30 04/13/17 09:09 Vasotec - PO 5 mg BID [facility] Administration Folic Acid 1 mg 04/10/17 10:00 04/13/17 09:10 Folic Acid - PO 1 mg DAILY [facility] Administration Glipizide 5 mg 04/12/17 07:00 04/13/17 06:33 Glucotrol - PO 5 mg DAILY@0700 [facility] Administration Heparin Sodium (Porcine) 5,000 unit 04/10/17 06:00 04/13/17 06:33 Heparin - SQ 5,000 unit TID [facility] Administration CEFTRIAXONE 1 G/50 ML PREMIX 50 mls @ 100 mls/hr 04/11/17 10:00 04/13/17 09:11 Ceftriaxone 1 Gm-D5w Bag IVPB 100 mls/hr DAILY [facility] Administration Doxycycline Hyclate 100 mg/ 100 mls @ 50 mls/hr 04/10/17 10:00 04/13/17 10:05 Dextrose IVPB 50 mls/hr BID [facility] Administration Insulin Aspart 1 vial 04/11/17 18:09 04/13/17 11:51 Novolog Vial Sliding Scale - SQ 2 units ACHS [facility] Administration Protocol Insulin Detemir 5 units 04/11/17 22:00 04/12/17 21:31 Levemir Vial SQ 5 unit HS [facility] Administration Methylprednisolone Sodium Succinate 40 mg 04/13/17 12:15 Solu-Medrol - IVPUSH Q12H [facility] Metoprolol Succinate 25 mg 04/10/17 22:00 04/13/17 09:10 Toprol Xl - PO 25 mg BID [facility] Administration Montelukast Sodium 10 mg 04/10/17 22:00 04/12/17 21:30 Singulair - PO 10 mg HS [facility] Administration Nifedipine 30 mg 04/10/17 10:00 04/13/17 09:10 Procardia Xl - PO 30 mg DAILY [facility] Administration Oxycodone HCl 5 mg 04/10/17 18:27 04/13/17 09:10 Roxicodone - PO 5 mg Q4H PRN Administration PAIN Pantoprazole Sodium 40 mg 04/12/17 10:00 04/13/17 09:10 Protonix - PO 40 mg DAILY [facility] Administration ASSESSMENT/PLAN: Patient is a 57 year old woman with a significant past medical history of HTN, HLD, NIDDM, Afib (not on any anticoagulation), asthma, MERT and morbid obesity. Patient presents to the ED with worsening shortness of breath, dyspnea on exertion, cough, fever and chills. On admission she reported cleaning her home for an inspection with exposure to dust as well as using non toxic handle bar assembler to keep room well ventilated. She reports that her breathing became worse and came to ER. She was recently treated for bronchitis on 03/22 with candice Saucedo. Pulmonary: Pneumonia, acute Asthma exacerbation, acute On scheduled duonebs Solumedrol 40mg q12 Influenza negative, Legionella negative On Ceftriaxone and Doxycycline per ID On 2 liters supplemental oxygen Incentive spirometer as tolerated Pulmonary consulted Cardiology: Hypertension On Procardia XL, Vasotec BID Afib history, to continue outpatient workup, not on an a/c at this time Cardiology notes reviewed CHF, chronic On Bumex Monitor intake and output Endocrine: Diabetes, chronic, hyperglycemia in the setting of steroid use Levemir 5 units tonight, monitor Home Glypizide ordered F.E.N. Fludis: tolerating PO Electrolytes: monitor Nutrition: low sodium Prophy: DVT: ambulation, GI: Protonix
[2017-04-13] MEDS: MONTELUKAST NA 10 MG TABLET PO SCH (22:05)
[2017-04-13] MEDS: ATORVASTATIN CA 20 MG TABLET (FP) PO SCH (22:05)
[2017-04-13] MEDS: INSULIN DETEMIR 100 UNITS/ML MDV SQ SCH (22:08)
[2017-04-14] MEDS: ACETAMINOPHEN 325 MG TABLET (FP) PO PRN ×2 (01:43→10:36)
[2017-04-14] MEDS: ALBUTEROL SO4 2.5/IPRATROPIUM 0.5 INH SOL 3 ML VIAL.NEB. NEB SCH ×4 (06:19→23:50)
[2017-04-14] MEDS: glipiZIDE 5 MG TABLET (FP) PO SCH (06:20)
[2017-04-14] MEDS: INSULIN SLIDING SCALE (NOVOLOG) 1 VIAL SQ SCH ×4 (06:21→22:00)
[2017-04-14 08:35] LABS: BASOPHIL 0.2 % (0-2.0); EOSINOPHIL 0.1 % (0-4.5); MCHC 32.8 g/dl (32.0-36.0); MEAN CELL VOLUME 91.6 fl (80-96); MEAN PLT VOLUME 8.9 fl (7.5-11.1); NEUTROPHILS 71.9 % (42.8-82.8); PLATELET COUNT 199 K/MM3 (134-434); RDW 15.7 % (11.6-15.6); WHITE BLOOD COUNT 6.2 K/mm3 (4.0-10.0)
[2017-04-14] MEDS ORDERED: PT OWN MED DRAWER 7, Y5N ONE (09:25)
[2017-04-14] MEDS: methylPREDNISolone NA SUCC 40 MG/1 ML VIAL IVPUSH SCH ×2 (09:41→22:00)
[2017-04-14] MEDS: CHOLECALCIFEROL (VITAMIN D3) 1,000 UNIT TABLET (FP) PO SCH (09:42)
[2017-04-14] MEDS: NIFEdipine E.R. 30 MG TABLET (FP) PO SCH (09:42)
[2017-04-14] MEDS: ENALAPRIL MALEATE 2.5 MG TABLET (FP) PO SCH ×2 (09:42→22:01)
[2017-04-14] MEDS: PANTOPRAZOLE 40 MG TABLET (FP) PO SCH (09:42)
[2017-04-14] MEDS: METOPROLOL SUCCINATE 25 MG TAB.SR.24H (FP) PO SCH ×2 (09:42→22:01)
[2017-04-14] MEDS: ASPIRIN 81 MG CHEWABLE TABLETS PO SCH (09:42)
[2017-04-14] MEDS: FOLIC ACID 1 MG TABLET (FP) PO SCH (09:42)
[2017-04-14] MEDS: BUMETANIDE 1 MG TABLET PO SCH (09:42)
[2017-04-14] MEDS: ASCORBIC ACID 500 MG TABLET (FP) PO SCH (09:42)
[2017-04-14] MEDS: CEFTRIAXONE 1 G/50 ML PREMIX 50 ML IVPB SCH (09:42)
[2017-04-14 09:53] LABS: ALBUMIN 3.2 g/dl (3.4-5.0); ALK PHOS 102 U/L (45-117); ANION GAP 8 (8-16); BILIRUBIN,TOTAL 0.5 mg/dL (0.2-1.0); CALCIUM 8.3 mg/dL (8.5-10.1); CO2 28 mmol/L (21-32); CREATININE 0.8 mg/dL (0.55-1.02); SGOT/AST 11 U/L (15-37); SGPT/ALT 35 U/L (12-78); TOT PROT 6.7 g/dl (6.4-8.2)
[2017-04-14] MEDS: DOXYCYCLINE INJECTION 100 MG in DEXTROSE 5%-WATER - 100 ML IVPB SCH ×2 (10:04→22:56)
[2017-04-14] MEDS ORDERED: INSULIN (NOVOLOG) ASPART 100 UNITS/ML 10ML VIAL ONE (11:54)
--- NOTE | 2017-04-14 13:04 | PN ---
Progress Note (short form) - Note Progress Note: Breathing feels overall better. Some residual dry cough. Did not qualify for home O2. No CP. Intake & Output 04/12/17 04/12/17 04/13/17 04/14/17 00:59 23:59 23:59 23:59 Intake Total 650 100 Output Total Balance 650 100 Last Vital Signs Temp Pulse Resp BP Pulse Ox 98.5 F 102 H 20 127/72 95 04/14/17 09:00 04/14/17 09:21 04/14/17 09:00 04/14/17 09:00 04/14/17 09:21 Active Medications Acetaminophen (Tylenol -) 650 mg PO Q6H PRN PRN Reason: FEVER OR PAIN Last Admin: 04/14/17 10:36 Dose: 650 mg Albuterol/Ipratropium (Duoneb -) 1 amp NEB QIDR [facility] Last Admin: 04/14/17 11:07 Dose: 1 amp Ascorbic Acid (Vitamin C -) 500 mg PO DAILY [facility] Last Admin: 04/14/17 09:42 Dose: 500 mg Aspirin (Asa -) 81 mg PO DAILY [facility] Last Admin: 04/14/17 09:42 Dose: 81 mg Atorvastatin Calcium (Lipitor -) 20 mg PO HS [facility] Last Admin: 04/13/17 22:05 Dose: 20 mg Bumetanide (Bumex -) 2 mg PO DAILY [facility] Last Admin: 04/14/17 09:42 Dose: 2 mg Cholecalciferol (Vitamin D3 -) 1,000 unit PO DAILY [facility] Last Admin: 04/14/17 09:42 Dose: 1,000 unit Enalapril Maleate (Vasotec -) 5 mg PO BID [facility] Last Admin: 04/14/17 09:42 Dose: 5 mg Folic Acid (Folic Acid -) 1 mg PO DAILY [facility] Last Admin: 04/14/17 09:42 Dose: 1 mg Glipizide (Glucotrol -) 5 mg PO DAILY@0700 [facility] Last Admin: 04/14/17 06:20 Dose: 5 mg CEFTRIAXONE 1 G/50 ML PREMIX (Ceftriaxone 1 Gm-D5w Bag) 50 mls @ 100 mls/hr IVPB DAILY [facility] Last Admin: 04/14/17 09:42 Dose: 100 mls/hr Doxycycline Hyclate 100 mg/ (Dextrose) 100 mls @ 50 mls/hr IVPB BID [facility] Last Admin: 04/14/17 10:04 Dose: 50 mls/hr Insulin Aspart (Novolog Vial Sliding Scale -) 1 vial SQ ACHS [facility] PRN Reason: Protocol Last Admin: 04/14/17 11:56 Dose: 4 units Insulin Detemir (Levemir Vial) 5 units SQ HS [facility] Last Admin: 04/13/17 22:08 Dose: 5 unit Methylprednisolone Sodium Succinate (Solu-Medrol -) 40 mg IVPUSH BID [facility] Last Admin: 04/14/17 09:41 Dose: 40 mg Metoprolol Succinate (Toprol Xl -) 25 mg PO BID [facility] Last Admin: 04/14/17 09:42 Dose: 25 mg Montelukast Sodium (Singulair -) 10 mg PO HS [facility] Last Admin: 04/13/17 22:05 Dose: 10 mg Nifedipine (Procardia Xl -) 30 mg PO DAILY [facility] Last Admin: 04/14/17 09:42 Dose: 30 mg Pantoprazole Sodium (Protonix -) 40 mg PO DAILY [facility] Last Admin: 04/14/17 09:42 Dose: 40 mg Constitutional: Yes: NAD Eyes: Yes: WNL HENT: Yes: WNL Neck: Yes: WNL Cardiovascular: Yes: Regular Rate and Rhythm, S1, S2 Respiratory: Yes: Few scattered bilateral Rhonchi, no wheeze Gastrointestinal: Yes: Normal Bowel Sounds, Soft, obese Extremities: Yes: WNL Edema: No Labs: Laboratory Results - last 24 hr 04/13/17 04/13/17 04/14/17 16:39 22:07 05:50 WBC RBC Hgb Hct MCV MCH MCHC RDW Plt Count MPV Neutrophils % Lymphocytes % Monocytes % Eosinophils % Basophils % Sodium Potassium Chloride Carbon Dioxide Anion Gap BUN Creatinine Creat Clearance w eGFR POC Glucometer 297 222 257 Calcium Total Bilirubin AST ALT Alkaline Phosphatase Total Protein Albumin 04/14/17 04/14/17 04/14/17 07:30 07:30 11:48 WBC 6.2 RBC 4.30 Hgb 12.9 Hct 39.4 MCV 91.6 MCH 30.0 MCHC 32.8 RDW 15.7 H Plt Count 199 MPV 8.9 Neutrophils % 71.9 Lymphocytes % 21.4 D Monocytes % 6.4 Eosinophils % 0.1 D Basophils % 0.2 Sodium 139 Potassium 3.8 Chloride 103 Carbon Dioxide 28 Anion Gap 8 BUN 20 H Creatinine 0.8 Creat Clearance w eGFR > 60 POC Glucometer 215 Calcium 8.3 L Total Bilirubin 0.5 D AST 11 L D ALT 35 Alkaline Phosphatase 102 Total Protein 6.7 Albumin 3.2 L Problem List - Problems (1) A-fib Code(s): I48.91 - UNSPECIFIED ATRIAL FIBRILLATION (2) Acute respiratory failure with hypoxia Code(s): J96.01 - ACUTE RESPIRATORY FAILURE WITH HYPOXIA (3) HLD (hyperlipidemia) Code(s): E78.5 - HYPERLIPIDEMIA, UNSPECIFIED (4) Pneumonia Code(s): J18.9 - PNEUMONIA, UNSPECIFIED ORGANISM Qualifiers: Pneumonia type: due to unspecified organism Laterality: bilateral Lung location: lower lobe of lung Qualified Code(s): J18.9 - Pneumonia, unspecified organism; J18.9 - Pneumonia, unspecified organism (5) Asthma Code(s): J45.909 - UNSPECIFIED ASTHMA, UNCOMPLICATED (6) Fever Code(s): R50.9 - FEVER, UNSPECIFIED (7) Diabetes mellitus treated with oral medication Code(s): E11.9 - TYPE 2 DIABETES MELLITUS WITHOUT COMPLICATIONS (8) Obesity, morbid, BMI 50 or higher Code(s): E66.01 - MORBID (SEVERE) OBESITY DUE TO EXCESS CALORIES (9) Sleep apnea Code(s): G47.30 - SLEEP APNEA, UNSPECIFIED (10) Pulmonary HTN Code(s): I27.20 - PULMONARY HYPERTENSION, UNSPECIFIED (11) Interstitial lung disease Code(s): J84.9 - INTERSTITIAL PULMONARY DISEASE, UNSPECIFIED (12) COPD (chronic obstructive pulmonary disease) Code(s): J44.9 - CHRONIC OBSTRUCTIVE PULMONARY DISEASE, UNSPECIFIED (13) Tobacco abuse Code(s): Z72.0 - TOBACCO USE (14) Tobacco abuse counseling Code(s): Z71.6 - TOBACCO ABUSE COUNSELING Assessment/Plan IMP ACUTE HYPOXEMIC RESPIRATORY FAILURE IMPROVING COPD EXACERBATION ? PNEUMONIA ILD PULMONARY HTN AFIB NIDDM HTN OSAS TOBACCO ABUSE PLAN STEROID TAPER INHALED BRONCHODILATORS O2 ANTIBIOTICS PFTS OUTPATIENT F/U CHEST CT OUTPATIENT COMPLIANCE WITH CPAP DISCUSSED : NEEDS NEW MASK SMOKING CESSATION COUNSELED NO PULMONARY CONTRAINDICATION FOR D/C DR NARAYAN
--- NOTE | 2017-04-14 14:02 | PN ---
Progress Note, Physician History of Present Illness: doing well no complaints - Current Medication List Current Medications: Active Medications Acetaminophen (Tylenol -) 650 mg PO Q6H PRN PRN Reason: FEVER OR PAIN Last Admin: 04/14/17 10:36 Dose: 650 mg Albuterol/Ipratropium (Duoneb -) 1 amp NEB QIDR [facility] Last Admin: 04/14/17 11:07 Dose: 1 amp Ascorbic Acid (Vitamin C -) 500 mg PO DAILY [facility] Last Admin: 04/14/17 09:42 Dose: 500 mg Aspirin (Asa -) 81 mg PO DAILY [facility] Last Admin: 04/14/17 09:42 Dose: 81 mg Atorvastatin Calcium (Lipitor -) 20 mg PO HS [facility] Last Admin: 04/13/17 22:05 Dose: 20 mg Bumetanide (Bumex -) 2 mg PO DAILY [facility] Last Admin: 04/14/17 09:42 Dose: 2 mg Cholecalciferol (Vitamin D3 -) 1,000 unit PO DAILY [facility] Last Admin: 04/14/17 09:42 Dose: 1,000 unit Enalapril Maleate (Vasotec -) 5 mg PO BID [facility] Last Admin: 04/14/17 09:42 Dose: 5 mg Folic Acid (Folic Acid -) 1 mg PO DAILY [facility] Last Admin: 04/14/17 09:42 Dose: 1 mg Glipizide (Glucotrol -) 5 mg PO DAILY@0700 [facility] Last Admin: 04/14/17 06:20 Dose: 5 mg CEFTRIAXONE 1 G/50 ML PREMIX (Ceftriaxone 1 Gm-D5w Bag) 50 mls @ 100 mls/hr IVPB DAILY [facility] Last Admin: 04/14/17 09:42 Dose: 100 mls/hr Doxycycline Hyclate 100 mg/ (Dextrose) 100 mls @ 50 mls/hr IVPB BID [facility] Last Admin: 04/14/17 10:04 Dose: 50 mls/hr Insulin Aspart (Novolog Vial Sliding Scale -) 1 vial SQ ACHS [facility] PRN Reason: Protocol Last Admin: 04/14/17 11:56 Dose: 4 units Insulin Detemir (Levemir Vial) 5 units SQ HS [facility] Last Admin: 04/13/17 22:08 Dose: 5 unit Methylprednisolone Sodium Succinate (Solu-Medrol -) 40 mg IVPUSH BID [facility] Last Admin: 04/14/17 09:41 Dose: 40 mg Metoprolol Succinate (Toprol Xl -) 25 mg PO BID [facility] Last Admin: 04/14/17 09:42 Dose: 25 mg Montelukast Sodium (Singulair -) 10 mg PO HS [facility] Last Admin: 04/13/17 22:05 Dose: 10 mg Nifedipine (Procardia Xl -) 30 mg PO DAILY [facility] Last Admin: 04/14/17 09:42 Dose: 30 mg Pantoprazole Sodium (Protonix -) 40 mg PO DAILY [facility] Last Admin: 04/14/17 09:42 Dose: 40 mg - Objective Vital Signs: Vital Signs Temperature 98.5 F 04/14/17 09:00 Pulse Rate 102 H 04/14/17 09:21 Respiratory Rate 20 04/14/17 09:00 Blood Pressure 127/72 04/14/17 09:00 O2 Sat by Pulse Oximetry (%) 95 04/14/17 09:21 Constitutional: Yes: No Distress, Calm Cardiovascular: Yes: Regular Rate and Rhythm Respiratory: Yes: Regular, CTA Bilaterally Gastrointestinal: Yes: Normal Bowel Sounds, Soft Musculoskeletal: Yes: WNL Extremities: Yes: WNL Neurological: Yes: Alert, Oriented Psychiatric: Yes: Alert, Oriented Labs: CBC, BMP 04/14/17 07:30 04/14/17 07:30 Assessment/Plan This is a 57 y/o woman with a PMHx of: HTN, HLD, NIDDM, Afib (no AC), CHF, Asthma, MERT, Severe Obesity. Admitted for Bilateral Lower Pneumonia secondary to Failed Outpatient Therapy, Acute Respiratory Failure, Hypoxia for further evaluation of their emergent condition. Plan: 1. Pneumonia 2. Acute Respiratory Failure//Hypoxia 3. Asthma Exacerbation 3. HTN//HLD//Afib//CHF 4. NIDDM 5. MERT plan can switch to doxy for another week stop ceftriaxone
--- NOTE | 2017-04-14 14:16 | DS ---
Physical Exam: SUBJECTIVE: Patient seen and examined at the bedside. She is tolerating room air, denies any shortness of breath or chest pain. Denies palpitations. OBJECTIVE: for discharge home to day with close pulmonary follow up Vital Signs Period Temp Pulse Resp BP Sys/Betancourt Pulse Ox Last 24 Hr 97.6 F-98.5 F 63-102 17-20 126-139/66-76 95-97 PHYSICAL EXAM GENERAL: The patient is awake, alert, and fully oriented, in no acute distress. HEAD: Normal with no signs of trauma. EYES: PERRL, extraocular movements intact, sclera anicteric, conjunctiva clear. No ptosis. ENT: Ears normal, nares patent, oropharynx clear without exudates, moist mucous membranes. NECK: Trachea midline, full range of motion, supple. LUNGS: Diminished breath sounds, no wheezing, on room air, improved lung sounds HEART: Regular rate and rhythm ABDOMEN: Soft, nontender, nondistended, normoactive bowel sounds, no guarding, no rebound, no hepatosplenomegaly, no masses. EXTREMITIES: trace edema bilateral lower ext NEUROLOGICAL: Normal speech, steady gait PSYCH: Normal mood, normal affect. SKIN: Warm, dry, normal turgor, no rashes or lesions noted LABS Laboratory Results - last 24 hr 04/13/17 04/13/17 04/14/17 16:39 22:07 05:50 WBC RBC Hgb Hct MCV MCH MCHC RDW Plt Count MPV Neutrophils % Lymphocytes % Monocytes % Eosinophils % Basophils % Sodium Potassium Chloride Carbon Dioxide Anion Gap BUN Creatinine Creat Clearance w eGFR POC Glucometer 297 222 257 Calcium Total Bilirubin AST ALT Alkaline Phosphatase Total Protein Albumin 04/14/17 04/14/17 04/14/17 07:30 07:30 11:48 WBC 6.2 RBC 4.30 Hgb 12.9 Hct 39.4 MCV 91.6 MCH 30.0 MCHC 32.8 RDW 15.7 H Plt Count 199 MPV 8.9 Neutrophils % 71.9 Lymphocytes % 21.4 D Monocytes % 6.4 Eosinophils % 0.1 D Basophils % 0.2 Sodium 139 Potassium 3.8 Chloride 103 Carbon Dioxide 28 Anion Gap 8 BUN 20 H Creatinine 0.8 Creat Clearance w eGFR > 60 POC Glucometer 215 Calcium 8.3 L Total Bilirubin 0.5 D AST 11 L D ALT 35 Alkaline Phosphatase 102 Total Protein 6.7 Albumin 3.2 L HOSPITAL COURSE: Date of Admission:04/10/17 Date of Discharge: 04/14/17 ASSESSMENT/PLAN: Patient is a 57 year old woman with a significant past medical history of HTN, HLD, NIDDM, Afib (not on any anticoagulation), asthma, MERT and morbid obesity. Patient presents to the ED with worsening shortness of breath, dyspnea on exertion, cough, fever and chills. On admission she reported cleaning her home for an inspection with exposure to dust as well as using non toxic guest services to keep room well ventilated. She reports that her breathing became worse and came to ER. She was recently treated for bronchitis on 03/22 with a Mayur Saucedo. Pulmonary: Possible pneumonia vs. Asthma/COPD exacerbation, improving Albuterol as needed Prednisone taper Continue Doxycycline BID x 1 more week Stable on room air with ambulation, does not qualify for home oxygen Influenza negative, Legionella negative Incentive spirometer as tolerated Pulmonary follow up outpatient Cardiology: Hypertension, controlled On Procardia XL, Vasotec BID Afib history, to continue outpatient workup, not on an a/c at this time Cardiology notes reviewed CHF, chronic On Bumex Monitor intake and output Endocrine: Diabetes, chronic, hyperglycemia in the setting of steroid use Restart home medications Prednisone taper Discharge. For discharge home with close PCP, Pulmonary and cardiology follow up. full code. Minutes to complete discharge: 60 Discharge Summary Reason For Visit: PNEUMONIA/RESPIRATORY FAILURE WITH HYPOX Current Active Problems A-fib (Acute) Acute respiratory failure with hypoxia (Acute) COPD (chronic obstructive pulmonary disease) (Acute) HLD (hyperlipidemia) (Acute) Interstitial lung disease (Acute) Pneumonia (Acute) Pulmonary HTN (Acute) Sepsis (Acute) Tobacco abuse (Acute) Tobacco abuse counseling (Acute) Condition: Improved - Instructions Diet, Activity, Other Instructions: Mrs Tr Mendoza: Please continue the antibiotics of Doxycline 100mg twice per day for 7 more days. Please continue the Prednisone taper as follows: Date Dose 04/15/2017 Prednisone 60mg daily 04/16/2017 Prednisone 60mg daily 04/17/2017 Prednisone 50mg daily 04/18/2017 Prednisone 40mg daily 04/19/2017 Prednisone 30mg daily 04/20/2017 Prednisone 20mg daily 04/21/2017 Prednisone 10mg daily - last dose Please call us with any questions that you may have. Jorge Montana @ [facility] [phone] Referrals: Dc Riojas MD [Staff Physician] - 1 Week Colin Andrews MD [Staff Physician] - 1 Week Karen James MD [Primary Care Provider] - 1 Week Disposition: HOME - Home Medications Comprehensive Discharge Medication List: Ambulatory Orders Albuterol Sulfate Inhaler - [Ventolin HFA Inhaler -] 2 inh IH Q4H PRN 01/31/14 Aspirin [ASA -] 81 mg PO DAILY 01/31/14 Enalapril Maleate [Vasotec -] 2.5 mg PO BID 01/31/14 Ergocalciferol [Drisdol -] 50,000 unit PO WEEKLY 01/31/14 Glipizide 5 mg PO DAILY 01/31/14 Sertraline HCl [Zoloft] 200 mg PO HS 01/31/14 Simvastatin [Zocor -] 40 mg PO HS 01/31/14 Sitagliptin Phos/Metformin HCl [Janumet 50-500 mg Tablet] 1 tab PO BID 01/31/14 Cyclobenzaprine HCl [Flexeril] 5 mg PO BID 06/28/14 Ascorbic Acid [Vitamin C -] 500 mg PO DAILY 01/02/15 Metoprolol Tartrate [Lopressor -] 50 mg PO BID 04/03/15 Montelukast Na [Singulair -] 10 mg PO HS 11/14/15 Nifedipine [Procardia Xl] 30 mg PO DAILY 12/11/15 Bumetanide [Bumex -] 2 mg PO DAILY 04/03/16 Folic Acid 1 mg PO DAILY 04/03/16 Budesonide/Formeterol Fumarate [SYMBICORT 160/4.5mcg -] 1 inh PO DAILY 05/09/16 Oxycodone HCl/Acetaminophen [Percocet 10-325 mg Tablet] 1 each PO TID PRN #90 tablet MDD 3 03/18/17 Azithromycin [Zithromax -] 250 mg PO UTDICT #6 tab 03/25/17 Cholecalciferol (Vitamin D3) [Vitamin D3 -] 1,000 unit PO DAILY 03/25/17 This patient is new to me today: Yes Date on this admission: 04/14/17 Emergency Visit: No Critical Care patient: No - Discharge Referral Referred to [facility] No
--- NOTE | 2017-04-14 15:24 | HOSP ---
Physical Examination Vital Signs: Vital Signs Temperature 97.6 F 04/14/17 15:00 Pulse Rate 102 H 04/14/17 09:21 Respiratory Rate 18 04/14/17 15:00 Blood Pressure 109/74 04/14/17 15:00 O2 Sat by Pulse Oximetry (%) 95 04/14/17 09:21 Labs: CBC, BMP 04/14/17 07:30 04/14/17 07:30 Hospitalist Encounter Assessment: Called by RN that patient heart rate was in the 130s during routine vitals On exam patient reports feeling fine up until she started to ambulate and had to sit down because she had palpitations and felt "flushed" Patient is sitting in the chair in no acute distress, speaking in clear sentences, denies chest pain, denies shortness of breath, verbalizing anxiety Vitals 124/81, heart rate 135 regular to auscultation, 97% room air, 20 breaths per minute Plan: EKG stat Trend troponins Has hx of afib, transfer and monitor on tele CBC, BMP, Blood cultures, urine cultures, lactic acid
[2017-04-14 15:59] LABS: GLUCOSE,RANDOM 264 mg/dL (74-106)
[2017-04-14] MEDS ORDERED: METOPROLOL SUCCINATE 25 MG TAB.SR.24H (FP) PO ONE (16:12)
[2017-04-14] MEDS ORDERED: METOPROLOL TARTRATE 5 MG/5 ML VIAL IVPB PRN (16:23)
--- NOTE | 2017-04-14 16:23 | PN ---
Progress Note (short form) - Note Progress Note: Called by hospitalist that pt found to be in aflutter with RVR. Pt was planned for discharge today but did not feel well, had some chest discomfort, palpitations, diaphoresis, echo showed aflutter with RVR. Transfer pt to tele Increase Metoprolol to 50mg bid IV lopressor prn for tachycardia Hold off on full ac as pt has refused in the past and she had hemoptysis during admission and thus hep SQ was dcd yesterday Will discuss full AC with her further tomorrow
[2017-04-14 17:07] LABS: BASOPHIL 0.1 % (0-2.0); EOSINOPHIL 0.1 % (0-4.5); MCH 30.6 pg (25.7-33.7); MCHC 33.4 g/dl (32.0-36.0); MEAN CELL VOLUME 91.8 fl (80-96); PLATELET COUNT 243 K/MM3 (134-434); RDW 15.6 % (11.6-15.6); WHITE BLOOD COUNT 6.9 K/mm3 (4.0-10.0)
[2017-04-14 17:44] LABS: ALBUMIN 3.3 g/dl (3.4-5.0); ALK PHOS 111 U/L (45-117); ANION GAP 12 (8-16); BILIRUBIN,TOTAL 0.5 mg/dL (0.2-1.0); CALCIUM 8.3 mg/dL (8.5-10.1); CO2 23 mmol/L (21-32); CREATININE 0.9 mg/dL (0.55-1.02); GLUCOSE,RANDOM 284 mg/dL (74-106); SGOT/AST 12 U/L (15-37); SGPT/ALT 39 U/L (12-78); TOT PROT 7.3 g/dl (6.4-8.2)
[2017-04-14 17:46] LABS: TROPONIN I < 0.02 ng/ml (0.00-0.05)
[2017-04-14] MEDS ORDERED: POTASSIUM CHLORIDE TABS 20 MEQ TABLET.ER (FP) PO ONE (17:51)
--- NOTE | 2017-04-14 19:20 | EKG ---
Test Reason : Blood Pressure : / mmHG Vent. Rate : 116 BPM Atrial Rate : 271 BPM P-R Int : 000 ms QRS Dur : 074 ms QT Int : 342 ms P-R-T Axes : 262 064 033 degrees QTc Int : 475 ms ATRIAL FLUTTER WITH VARIABLE A-V BLOCK NONSPECIFIC ST ABNORMALITY ABNORMAL ECG WHEN COMPARED WITH ECG OF 10-APR-2017 05:30, ATRIAL FLUTTER HAS REPLACED SINUS RHYTHM NON-SPECIFIC CHANGE IN ST SEGMENT IN INFERIOR LEADS NON-SPECIFIC CHANGE IN ST SEGMENT IN LATERAL LEADS CLINICAL CORRELATION IS RECOMMENDED AND REPEAT EKG Confirmed by JOSHUA HAZEL MD ([id number] on 04/14/2017 7:19:59 PM Referred By: VENTURA ISAAC Confirmed By:JOSHUA HAZEL MD
[2017-04-14 20:24] LABS: ALBUMIN 3.1 g/dl (3.4-5.0); ANION GAP 9 (8-16); CALCIUM 8.2 mg/dL (8.5-10.1); CO2 26 mmol/L (21-32); MAGNESIUM 1.8 mg/dL (1.8-2.4); SGOT/AST 9 U/L (15-37); SGPT/ALT 36 U/L (12-78)
[2017-04-14 20:27] LABS: ALK PHOS 100 U/L (45-117); CREATININE 0.8 mg/dL (0.55-1.02); TOT PROT 6.9 g/dl (6.4-8.2)
[2017-04-14 20:29] LABS: GLUCOSE,RANDOM 315 mg/dL (74-106)
[2017-04-14] MEDS: ATORVASTATIN CA 20 MG TABLET (FP) PO SCH (21:59)
[2017-04-14] MEDS: INSULIN DETEMIR 100 UNITS/ML MDV SQ SCH (21:59)
[2017-04-14] MEDS: MONTELUKAST NA 10 MG TABLET PO SCH (22:00)
[2017-04-14] MEDS: SERTRALINE HCL 50 MG TABLET (FP) PO SCH (22:01)
[2017-04-15 03:12] LABS: CPK 81 IU/L (26-192); TROPONIN I < 0.02 ng/ml (0.00-0.05)
[2017-04-15] MEDS: ALBUTEROL SO4 2.5/IPRATROPIUM 0.5 INH SOL 3 ML VIAL.NEB. NEB SCH (06:25)
[2017-04-15 08:01] LABS: BASOPHIL 0.2 % (0-2.0); EOSINOPHIL 0.1 % (0-4.5); MCH 30.4 pg (25.7-33.7); MCHC 33.1 g/dl (32.0-36.0); MEAN CELL VOLUME 92.1 fl (80-96); MEAN PLT VOLUME 9.9 fl (7.5-11.1); NEUTROPHILS 76.7 % (42.8-82.8); PLATELET COUNT 241 K/MM3 (134-434); RDW 15.6 % (11.6-15.6); WHITE BLOOD COUNT 7.8 K/mm3 (4.0-10.0)
[2017-04-15 09:03] LABS: ALBUMIN 3.2 g/dl (3.4-5.0); ANION GAP 11 (8-16); CALCIUM 7.9 mg/dL (8.5-10.1); CO2 24 mmol/L (21-32); CREATININE 0.7 mg/dL (0.55-1.02); GLUCOSE,RANDOM 255 mg/dL (74-106); MAGNESIUM 1.8 mg/dL (1.8-2.4); SGOT/AST 10 U/L (15-37); SGPT/ALT 37 U/L (12-78)
[2017-04-15 09:05] LABS: CPK 68 IU/L (26-192); TROPONIN I < 0.02 ng/ml (0.00-0.05)
[2017-04-15 09:11] LABS: ALK PHOS 101 U/L (45-117); BILIRUBIN,TOTAL 0.4 mg/dL (0.2-1.0); CPK 70 IU/L (26-192); TOT PROT 7.1 g/dl (6.4-8.2); TROPONIN I < 0.02 ng/ml (0.00-0.05)
--- NOTE | 2017-04-15 09:26 | PN ---
Progress Note, Physician Chief Complaint: ECG reviewed, Dr. Andrews's note reviewed Txd to tele ECG reviewed, typical Aflutter TELE: shows AF/Flutter at 80-100bpm - Current Medication List Current Medications: Active Medications Acetaminophen (Tylenol -) 650 mg PO Q6H PRN PRN Reason: FEVER OR PAIN Last Admin: 04/14/17 10:36 Dose: 650 mg Ascorbic Acid (Vitamin C -) 500 mg PO DAILY [facility] Last Admin: 04/14/17 09:42 Dose: 500 mg Aspirin (Asa -) 81 mg PO DAILY [facility] Last Admin: 04/14/17 09:42 Dose: 81 mg Atorvastatin Calcium (Lipitor -) 20 mg PO HS [facility] Last Admin: 04/14/17 21:59 Dose: 20 mg Bumetanide (Bumex -) 2 mg PO DAILY [facility] Last Admin: 04/14/17 09:42 Dose: 2 mg Cholecalciferol (Vitamin D3 -) 1,000 unit PO DAILY [facility] Last Admin: 04/14/17 09:42 Dose: 1,000 unit Enalapril Maleate (Vasotec -) 5 mg PO BID [facility] Last Admin: 04/14/17 22:01 Dose: 5 mg Folic Acid (Folic Acid -) 1 mg PO DAILY [facility] Last Admin: 04/14/17 09:42 Dose: 1 mg Glipizide (Glucotrol -) 5 mg PO DAILY@0700 [facility] Last Admin: 04/14/17 06:20 Dose: 5 mg Doxycycline Hyclate 100 mg/ (Dextrose) 100 mls @ 50 mls/hr IVPB BID [facility] Last Admin: 04/14/17 22:56 Dose: 50 mls/hr Insulin Aspart (Novolog Vial Sliding Scale -) 1 vial SQ ACHS [facility] PRN Reason: Protocol Last Admin: 04/14/17 22:00 Dose: 8 units Insulin Detemir (Levemir Vial) 5 units SQ HS [facility] Last Admin: 04/14/17 21:59 Dose: 5 unit Methylprednisolone Sodium Succinate (Solu-Medrol -) 40 mg IVPUSH BID [facility] Last Admin: 04/14/17 22:00 Dose: 40 mg Metoprolol Succinate (Toprol Xl -) 50 mg PO BID [facility] Last Admin: 04/14/17 22:01 Dose: 50 mg Metoprolol Tartrate (Lopressor Injection -) 5 mg IVPB Q4H PRN PRN Reason: TACHYCARDIA Montelukast Sodium (Singulair -) 10 mg PO [facility] Last Admin: 04/14/17 22:00 Dose: 10 mg Nifedipine (Procardia Xl -) 30 mg PO DAILY [facility] Last Admin: 04/14/17 09:42 Dose: 30 mg Pantoprazole Sodium (Protonix -) 40 mg PO DAILY [facility] Last Admin: 04/14/17 09:42 Dose: 40 mg Sertraline HCl (Zoloft -) 200 mg PO [facility] Last Admin: 04/14/17 22:01 Dose: 200 mg - Objective Vital Signs: Vital Signs Temperature 98.2 F 04/15/17 08:00 Pulse Rate 88 04/15/17 08:00 Respiratory Rate 16 04/15/17 08:00 Blood Pressure 136/72 04/15/17 08:00 O2 Sat by Pulse Oximetry (%) 96 04/14/17 21:00 Constitutional: Yes: Calm Cardiovascular: Yes: Pulse Irregular Respiratory: Yes: CTA Bilaterally Gastrointestinal: Yes: Soft, Abdomen, Obese Edema: No Neurological: Yes: Alert, Oriented ...Motor Strength: WNL Labs: CBC, BMP 04/15/17 05:20 04/15/17 05:20 Laboratory Tests 04/15/17 04/15/17 04/15/17 02:30 05:20 05:20 WBC 7.8 Hgb 13.5 Plt Count 241 Potassium 4.5 Creatinine 0.7 Creatine Kinase 81 70 Troponin I < 0.02 < 0.02 04/15/17 05:20 WBC Hgb Plt Count Potassium Creatinine Creatine Kinase 68 Troponin I < 0.02 - ....Imaging EKG: Image Reviewed Assessment/Plan IMP: Acute exacerbation of COPD ?Interstitial lung disease? 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 Again, she is declining because she feels her episodes are triggered by specific circumstances (steroids) Reasonable to continue ASA for now, but she agrees to consideration of full AC and will discuss this and EP eval for ablation w/ lionel
[2017-04-15] MEDS: ASPIRIN 81 MG CHEWABLE TABLETS PO SCH (09:43)
[2017-04-15] MEDS: methylPREDNISolone NA SUCC 40 MG/1 ML VIAL IVPUSH SCH (09:43)
[2017-04-15] MEDS: ENALAPRIL MALEATE 2.5 MG TABLET (FP) PO SCH (09:43)
[2017-04-15] MEDS: NIFEdipine E.R. 30 MG TABLET (FP) PO SCH (09:43)
[2017-04-15] MEDS: METOPROLOL SUCCINATE 25 MG TAB.SR.24H (FP) PO SCH (09:43)
[2017-04-15] MEDS: CHOLECALCIFEROL (VITAMIN D3) 1,000 UNIT TABLET (FP) PO SCH (09:43)
[2017-04-15] MEDS: ASCORBIC ACID 500 MG TABLET (FP) PO SCH (09:43)
[2017-04-15] MEDS: PANTOPRAZOLE 40 MG TABLET (FP) PO SCH (09:43)
[2017-04-15] MEDS: FOLIC ACID 1 MG TABLET (FP) PO SCH (09:44)
[2017-04-15] MEDS: BUMETANIDE 1 MG TABLET PO SCH (09:45)
--- NOTE | 2017-04-15 11:01 | PN ---
Progress Note, Physician History of Present Illness: PULMONARY EVENTS NOTED TRANSFERRED TO TELEMETRY SECONDARY TO AFIB/FLUTTER. PT CURRENTLY IN NAD - Current Medication List Current Medications: Active Medications Acetaminophen (Tylenol -) 650 mg PO Q6H PRN PRN Reason: FEVER OR PAIN Last Admin: 04/14/17 10:36 Dose: 650 mg Ascorbic Acid (Vitamin C -) 500 mg PO DAILY [facility] Last Admin: 04/15/17 09:43 Dose: 500 mg Aspirin (Asa -) 81 mg PO DAILY [facility] Last Admin: 04/15/17 09:43 Dose: 81 mg Atorvastatin Calcium (Lipitor -) 20 mg PO HS [facility] Last Admin: 04/14/17 21:59 Dose: 20 mg Bumetanide (Bumex -) 2 mg PO DAILY [facility] Last Admin: 04/15/17 09:45 Dose: 2 mg Cholecalciferol (Vitamin D3 -) 1,000 unit PO DAILY [facility] Last Admin: 04/15/17 09:43 Dose: 1,000 unit Enalapril Maleate (Vasotec -) 5 mg PO BID [facility] Last Admin: 04/15/17 09:43 Dose: 5 mg Folic Acid (Folic Acid -) 1 mg PO DAILY [facility] Last Admin: 04/15/17 09:44 Dose: 1 mg Glipizide (Glucotrol -) 5 mg PO DAILY@0700 [facility] Last Admin: 04/14/17 06:20 Dose: 5 mg Doxycycline Hyclate 100 mg/ (Dextrose) 100 mls @ 50 mls/hr IVPB BID [facility] Last Admin: 04/14/17 22:56 Dose: 50 mls/hr Insulin Aspart (Novolog Vial Sliding Scale -) 1 vial SQ [facility] PRN Reason: Protocol Last Admin: 04/14/17 22:00 Dose: 8 units Insulin Detemir (Levemir Vial) 5 units SQ HS [facility] Last Admin: 04/14/17 21:59 Dose: 5 unit Methylprednisolone Sodium Succinate (Solu-Medrol -) 40 mg IVPUSH BID [facility] Last Admin: 04/15/17 09:43 Dose: 40 mg Metoprolol Succinate (Toprol Xl -) 50 mg PO BID [facility] Last Admin: 04/15/17 09:43 Dose: 50 mg Metoprolol Tartrate (Lopressor Injection -) 5 mg IVPB Q4H PRN PRN Reason: TACHYCARDIA Montelukast Sodium (Singulair -) 10 mg PO [facility] Last Admin: 04/14/17 22:00 Dose: 10 mg Nifedipine (Procardia Xl -) 30 mg PO DAILY [facility] Last Admin: 04/15/17 09:43 Dose: 30 mg Pantoprazole Sodium (Protonix -) 40 mg PO DAILY [facility] Last Admin: 04/15/17 09:43 Dose: 40 mg Sertraline HCl (Zoloft -) 200 mg PO [facility] Last Admin: 04/14/17 22:01 Dose: 200 mg - Objective Vital Signs: Vital Signs Temperature 98.2 F 04/15/17 08:00 Pulse Rate 88 04/15/17 08:00 Respiratory Rate 16 04/15/17 08:00 Blood Pressure 136/72 04/15/17 08:00 O2 Sat by Pulse Oximetry (%) 96 04/14/17 21:00 Constitutional: Yes: Well Nourished, Calm, Obese Eyes: Yes: WNL HENT: Yes: WNL Neck: Yes: WNL Cardiovascular: Yes: Pulse Irregular, S1, S2 Respiratory: Yes: Wheezes (FEW WHEEZES) Gastrointestinal: Yes: Normal Bowel Sounds, Soft Extremities: Yes: WNL Edema: No Labs: CBC, BMP 04/15/17 05:20 04/15/17 05:20 Problem List - Problems (1) Asthma Code(s): J45.909 - UNSPECIFIED ASTHMA, UNCOMPLICATED (2) Sleep apnea Code(s): G47.30 - SLEEP APNEA, UNSPECIFIED (3) Diabetes mellitus treated with oral medication Code(s): E11.9 - TYPE 2 DIABETES MELLITUS WITHOUT COMPLICATIONS (4) Obesity, morbid, BMI 50 or higher Code(s): E66.01 - MORBID (SEVERE) OBESITY DUE TO EXCESS CALORIES (5) Fever Code(s): R50.9 - FEVER, UNSPECIFIED (6) Acute respiratory failure with hypoxia Code(s): J96.01 - ACUTE RESPIRATORY FAILURE WITH HYPOXIA (7) Pneumonia Code(s): J18.9 - PNEUMONIA, UNSPECIFIED ORGANISM Qualifiers: Pneumonia type: due to unspecified organism Laterality: bilateral Lung location: lower lobe of lung Qualified Code(s): J18.9 - Pneumonia, unspecified organism (8) A-fib Code(s): I48.91 - UNSPECIFIED ATRIAL FIBRILLATION (9) HLD (hyperlipidemia) Code(s): E78.5 - HYPERLIPIDEMIA, UNSPECIFIED (10) Pulmonary HTN Code(s): I27.20 - PULMONARY HYPERTENSION, UNSPECIFIED (11) Interstitial lung disease Code(s): J84.9 - INTERSTITIAL PULMONARY DISEASE, UNSPECIFIED (12) COPD (chronic obstructive pulmonary disease) Code(s): J44.9 - CHRONIC OBSTRUCTIVE PULMONARY DISEASE, UNSPECIFIED (13) Tobacco abuse counseling Code(s): Z71.6 - TOBACCO ABUSE COUNSELING (14) Tobacco abuse Code(s): Z72.0 - TOBACCO USE Assessment/Plan IMP ACUTE HYPOXEMIC RESPIRATORY FAILURE IMPROVING COPD EXACERBATION ? PNEUMONIA ILD PULMONARY HTN AFIB NIDDM HTN OSAS TOBACCO ABUSE PLAN TAPER STEROIDS INHALED BRONCHODILATORS O2 PFTS OUTPATIENT F/U CHEST CT OUTPATIENT COMPLIANCE WITH CPAP SMOKING CESSATION COUNSELED DR LORA Problem List - Problems (1) A-fib Code(s): I48.91 - UNSPECIFIED ATRIAL FIBRILLATION (2) Acute respiratory failure with hypoxia Code(s): J96.01 - ACUTE RESPIRATORY FAILURE WITH HYPOXIA (3) HLD (hyperlipidemia) Code(s): E78.5 - HYPERLIPIDEMIA, UNSPECIFIED (4) Pneumonia Code(s): J18.9 - PNEUMONIA, UNSPECIFIED ORGANISM Qualifiers: Pneumonia type: due to unspecified organism Laterality: bilateral Lung location: lower lobe of lung Qualified Code(s): J18.9 - Pneumonia, unspecified organism; J18.9 - Pneumonia, unspecified organism (5) Asthma Code(s): J45.909 - UNSPECIFIED ASTHMA, UNCOMPLICATED (6) Fever Code(s): R50.9 - FEVER, UNSPECIFIED (7) Diabetes mellitus treated with oral medication Code(s): E11.9 - TYPE 2 DIABETES MELLITUS WITHOUT COMPLICATIONS (8) Obesity, morbid, BMI 50 or higher Code(s): E66.01 - MORBID (SEVERE) OBESITY DUE TO EXCESS CALORIES (9) Sleep apnea Code(s): G47.30 - SLEEP APNEA, UNSPECIFIED (10) Pulmonary HTN Code(s): I27.20 - PULMONARY HYPERTENSION, UNSPECIFIED (11) Interstitial lung disease Code(s): J84.9 - INTERSTITIAL PULMONARY DISEASE, UNSPECIFIED (12) COPD (chronic obstructive pulmonary disease) Code(s): J44.9 - CHRONIC OBSTRUCTIVE PULMONARY DISEASE, UNSPECIFIED (13) Tobacco abuse Code(s): Z72.0 - TOBACCO USE (14) Tobacco abuse counseling Code(s): Z71.6 - TOBACCO ABUSE COUNSELING
[2017-04-15] MEDS: INSULIN SLIDING SCALE (NOVOLOG) 1 VIAL SQ SCH ×3 (12:19→21:15)
[2017-04-15] MEDS: DOXYCYCLINE INJECTION 100 MG in DEXTROSE 5%-WATER - 100 ML IVPB SCH (12:22)
--- NOTE | 2017-04-15 12:26 | PN ---
Progress Note, Physician History of Present Illness: events noted patient transferred to tele seems patient was in afib now stable - Current Medication List Current Medications: Active Medications Acetaminophen (Tylenol -) 650 mg PO Q6H PRN PRN Reason: FEVER OR PAIN Last Admin: 04/14/17 10:36 Dose: 650 mg Ascorbic Acid (Vitamin C -) 500 mg PO DAILY [facility] Last Admin: 04/15/17 09:43 Dose: 500 mg Aspirin (Asa -) 81 mg PO DAILY [facility] Last Admin: 04/15/17 09:43 Dose: 81 mg Atorvastatin Calcium (Lipitor -) 20 mg PO HS [facility] Last Admin: 04/14/17 21:59 Dose: 20 mg Bumetanide (Bumex -) 2 mg PO DAILY [facility] Last Admin: 04/15/17 09:45 Dose: 2 mg Cholecalciferol (Vitamin D3 -) 1,000 unit PO DAILY [facility] Last Admin: 04/15/17 09:43 Dose: 1,000 unit Enalapril Maleate (Vasotec -) 5 mg PO BID [facility] Last Admin: 04/15/17 09:43 Dose: 5 mg Folic Acid (Folic Acid -) 1 mg PO DAILY [facility] Last Admin: 04/15/17 09:44 Dose: 1 mg Glipizide (Glucotrol -) 5 mg PO DAILY@0700 [facility] Last Admin: 04/14/17 06:20 Dose: 5 mg Doxycycline Hyclate 100 mg/ (Dextrose) 100 mls @ 50 mls/hr IVPB BID [facility] Last Admin: 04/15/17 12:22 Dose: Not Given Insulin Aspart (Novolog Vial Sliding Scale -) 1 vial SQ [facility] PRN Reason: Protocol Last Admin: 04/15/17 12:19 Dose: 4 units Insulin Detemir (Levemir Vial) 5 units SQ [facility] Last Admin: 04/14/17 21:59 Dose: 5 unit Methylprednisolone Sodium Succinate (Solu-Medrol -) 40 mg IVPUSH BID [facility] Last Admin: 04/15/17 09:43 Dose: 40 mg Metoprolol Succinate (Toprol Xl -) 50 mg PO BID [facility] Last Admin: 04/15/17 09:43 Dose: 50 mg Metoprolol Tartrate (Lopressor Injection -) 5 mg IVPB Q4H PRN PRN Reason: TACHYCARDIA Montelukast Sodium (Singulair -) 10 mg PO [facility] Last Admin: 04/14/17 22:00 Dose: 10 mg Nifedipine (Procardia Xl -) 30 mg PO DAILY [facility] Last Admin: 04/15/17 09:43 Dose: 30 mg Pantoprazole Sodium (Protonix -) 40 mg PO DAILY [facility] Last Admin: 04/15/17 09:43 Dose: 40 mg Sertraline HCl (Zoloft -) 200 mg PO [facility] Last Admin: 04/14/17 22:01 Dose: 200 mg - Objective Vital Signs: Vital Signs Temperature 98.2 F 04/15/17 08:00 Pulse Rate 88 04/15/17 08:00 Respiratory Rate 16 04/15/17 09:00 Blood Pressure 136/72 04/15/17 08:00 O2 Sat by Pulse Oximetry (%) 96 04/15/17 09:00 Constitutional: Yes: No Distress, Calm Cardiovascular: Yes: Regular Rate and Rhythm Respiratory: Yes: Regular, CTA Bilaterally Gastrointestinal: Yes: Normal Bowel Sounds, Soft Musculoskeletal: Yes: WNL Extremities: Yes: WNL Neurological: Yes: Alert, Oriented Psychiatric: Yes: Alert, Oriented Labs: CBC, BMP 04/15/17 05:20 04/15/17 05:20 Assessment/Plan 1. Pneumonia 2. Acute Respiratory Failure//Hypoxia 3. Asthma Exacerbation 3. HTN//HLD//Afib//CHF 4. NIDDM 5. MERT plan continue current mgmt rest as per primary
[2017-04-15] MEDS ORDERED: METOPROLOL SUCCINATE 25 MG TAB.SR.24H (FP) PO ONE (12:33)
[2017-04-15] MEDS ORDERED: METOPROLOL SUCCINATE 25 MG TAB.SR.24H (FP) PO SCH (12:34)
[2017-04-15] MEDS ORDERED: sitaGLIPtin PHOSPHATE 50 MG TABLET PO ONE (12:39)
--- NOTE | 2017-04-15 12:40 | PN ---
Progress Note (short form) - Note Progress Note: c/o palpitations on exertion. assoc with SOB. sometimes experiences at rest when her back pain is bothering her. denies CP, fever, chills, cough, N/V/C/D Current Medications Generic Name Dose Route Start Last Admin Trade Name Freq PRN Reason Stop Dose Admin Acetaminophen 650 mg 04/10/17 04:57 04/14/17 10:36 Tylenol - PO 650 mg Q6H PRN Administration FEVER OR PAIN Ascorbic Acid 500 mg 04/10/17 10:00 04/15/17 09:43 Vitamin C - PO 500 mg DAILY HIRAM Administration Aspirin 81 mg 04/10/17 10:00 04/15/17 09:43 Asa - PO 81 mg DAILY HIRAM Administration Atorvastatin Calcium 20 mg 04/10/17 22:00 04/14/17 21:59 Lipitor - PO 20 mg HS HIRAM Administration Bumetanide 2 mg 04/11/17 10:00 04/15/17 09:45 Bumex - PO 2 mg DAILY HIRAM Administration Cholecalciferol 1,000 unit 04/10/17 10:00 04/15/17 09:43 Vitamin D3 - PO 1,000 unit DAILY HIRAM Administration Enalapril Maleate 5 mg 04/10/17 14:30 04/15/17 09:43 Vasotec - PO 5 mg BID HIRAM Administration Folic Acid 1 mg 04/10/17 10:00 04/15/17 09:44 Folic Acid - PO 1 mg DAILY HIRAM Administration Glipizide 5 mg 04/12/17 07:00 04/14/17 06:20 Glucotrol - PO 5 mg DAILY@0700 HIRAM Administration Doxycycline Hyclate 100 mg/ 100 mls @ 50 mls/hr 04/10/17 10:00 04/15/17 12:22 Dextrose IVPB Not Given BID [facility] Insulin Aspart 1 vial 04/11/17 18:09 04/15/17 12:19 Novolog Vial Sliding Scale - SQ 4 units ACHS HIRAM Administration Protocol Insulin Detemir 5 units 04/11/17 22:00 04/14/17 21:59 Levemir Vial SQ 5 unit HS HIRAM Administration Methylprednisolone Sodium Succinate 40 mg 04/13/17 12:15 04/15/17 09:43 Solu-Medrol - IVPUSH 40 mg BID [facility] Administration Metoprolol Succinate 50 mg 04/14/17 22:00 04/15/17 09:43 Toprol Xl - PO 50 mg BID HIRAM Administration Metoprolol Tartrate 5 mg 04/14/17 16:23 Lopressor Injection - IVPB Q4H PRN TACHYCARDIA Montelukast Sodium 10 mg 04/10/17 22:00 04/14/17 22:00 Singulair - PO 10 mg HS HIRAM Administration Nifedipine 30 mg 04/10/17 10:00 04/15/17 09:43 Procardia Xl - PO 30 mg DAILY HIRAM Administration Pantoprazole Sodium 40 mg 04/12/17 10:00 04/15/17 09:43 Protonix - PO 40 mg DAILY HIRAM Administration Sertraline HCl 200 mg 04/14/17 22:00 04/14/17 22:01 Zoloft - PO 200 mg HS HIRAM Administration Last Vital Signs Temp Pulse Resp BP Pulse Ox 98.2 F 88 16 136/72 96 04/15/17 08:00 04/15/17 08:00 04/15/17 09:00 04/15/17 08:00 04/15/17 09:00 General NAD CV S1 S2 + Lungs CTA B/L no wheezing/rales/rhonchi Abdomen soft NT/ND CBCD WBC 7.8 K/mm3 (4.0-10.0) 04/15/17 05:20 RBC 4.44 M/mm3 (3.60-5.2) 04/15/17 05:20 Hgb 13.5 GM/dL (10.7-15.3) 04/15/17 05:20 Hct 40.9 % (32.4-45.2) 04/15/17 05:20 MCV 92.1 fl (80-96) 04/15/17 05:20 MCHC 33.1 g/dl (32.0-36.0) 04/15/17 05:20 RDW 15.6 % (11.6-15.6) 04/15/17 05:20 Plt Count 241 K/MM3 (134-434) 04/15/17 05:20 MPV 9.9 fl (7.5-11.1) 04/15/17 05:20 CMP Sodium 138 mmol/L (136-145) 04/15/17 05:20 Potassium 4.5 mmol/L (3.5-5.1) 04/15/17 05:20 Chloride 103 mmol/L (98-107) 04/15/17 05:20 Carbon Dioxide 24 mmol/L (21-32) 04/15/17 05:20 Anion Gap 11 (8-16) 04/15/17 05:20 BUN 18 mg/dL (7-18) 04/15/17 05:20 Creatinine 0.7 mg/dL (0.55-1.02) 04/15/17 05:20 Creat Clearance w eGFR > 60 (>60) 04/15/17 05:20 Calcium 7.9 mg/dL (8.5-10.1) L 04/15/17 05:20 Total Bilirubin 0.4 mg/dL (0.2-1.0) D 04/15/17 05:20 AST 10 U/L (15-37) L 04/15/17 05:20 ALT 37 U/L (12-78) 04/15/17 05:20 Alkaline Phosphatase 101 U/L (45-117) 04/15/17 05:20 Total Protein 7.1 g/dl (6.4-8.2) 04/15/17 05:20 Albumin 3.2 g/dl (3.4-5.0) L 04/15/17 05:20 57 year old woman with a significant past medical history of HTN, HLD, NIDDM, Afib (not on any anticoagulation), asthma, MERT and morbid obesity. Patient presents to the ED with worsening shortness of breath, dyspnea on exertion, cough, fever and chills. 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 She reports that her breathing became worse and came to ER. She was recently treated for bronchitis on 03/22 with candice Saucedo. 1. Acute COPD exacerbation- due to toxic exposure. clinically improved. received solumedrol 40mg IV x1. will switch to pred 40mg po and taper. on Doxycycline po. will need to complete 1 week. 2. Aflutter- rate uncontrolled. on the monitor 88-140. becomes symptomatic. will increase metoprolol to 75mg. refusing anticoagulation. cardio on board. cont asa at this time. will likely require EP study with ablation. 3. DM- uncontrolled. can also be due to steroids. will re-start home medications. increase levemir to 8 units tonight. check A1c to evaluate if requires home insulin therapy 4. chronic back pain- states she is on percocet at home. will resume prn here while hospitalized. will not receive prescription on discharge. verbalized understanding. 5. CHF- no signs of volume overload. cont bumex 6. DVT ppx- no contraindication for anticoagulation. will start lovenox Visit type - Emergency Visit Emergency Visit: Yes ED Registration Date: 04/10/17 Care time: The patient presented to the Emergency Department on the above date and was hospitalized for further evaluation of their emergent condition. - New Patient This patient is new to me today: Yes Date on this admission: 04/15/17 - Critical Care Critical Care patient: No - Discharge Referral Referred to [facility] No
[2017-04-15] MEDS ORDERED: INSULIN DETEMIR 100 UNITS/ML MDV SQ SCH (12:41)
[2017-04-15] MEDS ORDERED: ACETAMINOPHEN 325 MG TABLET (FP) PO PRN (12:44)
[2017-04-15] MEDS: ACETAMINOPHEN 325 MG TABLET (FP) PO PRN (13:07)
[2017-04-15] MEDS: oxyCODONE HCL 5 MG TABLET PO PRN ×2 (13:08→23:48)
[2017-04-15] MEDS: metFORMIN HCL 500 MG TABLET (FP) PO SCH ×2 (13:09→17:32)
[2017-04-15] MEDS: ENOXAPARIN NA (PORCINE) 40 MG/0.4 ML DISP.SYRIN SQ SCH (13:09)
[2017-04-15] MEDS: DOXYCYCLINE HYCLATE 100 MG CAPSULE PO SCH ×2 (14:38→18:51)
[2017-04-15] MEDS: ATORVASTATIN CA 20 MG TABLET (FP) PO SCH (21:45)
[2017-04-15] MEDS: MONTELUKAST NA 10 MG TABLET PO SCH (21:45)
[2017-04-15] MEDS: SERTRALINE HCL 50 MG TABLET (FP) PO SCH (21:45)
[2017-04-15] MEDS ORDERED: METOPROLOL TARTRATE 25 MG TABLET (FP) PO ONE (21:55)
[2017-04-15] MEDS ORDERED: METOPROLOL TARTRATE 50 MG TABLET (FP) PO ONE (23:21)
--- NOTE | 2017-04-15 23:23 | HOSP ---
Subjective - Review of Symptoms Events since last encounter: Late entry for 22:10 Called by nurse who reports pt BP 98/56 and pt is due for enalapril and metoprolol. pt is otherwise stable and asymptomatic. HR remains 110s. Physical Examination Vital Signs: Vital Signs Temperature 97.4 F L 04/15/17 20:20 Pulse Rate 104 H 04/15/17 20:20 Respiratory Rate 18 04/15/17 20:20 Blood Pressure 98/56 04/15/17 20:20 O2 Sat by Pulse Oximetry (%) 96 04/15/17 09:00 Labs: CBC, BMP 04/15/17 05:20 04/15/17 05:20 Hospitalist Encounter Assessment: Aflutter. - HR remains in 110s but sbp 98. Will change enalapril to daily dosing and given 25mg metoprolol now, repeat BP in one hour and if SBP above 90 will give additional 50.
[2017-04-16] MEDS ORDERED: sitaGLIPtin PHOSPHATE 50 MG TABLET PO SCH (07:00)
[2017-04-16] MEDS: glipiZIDE 5 MG TABLET (FP) PO SCH ×2 (07:02→07:05)
[2017-04-16] MEDS: metFORMIN HCL 500 MG TABLET (FP) PO SCH (07:02)
[2017-04-16] MEDS: INSULIN SLIDING SCALE (NOVOLOG) 1 VIAL SQ SCH ×2 (07:03→12:03)
--- NOTE | 2017-04-16 09:04 | PN ---
Progress Note, Physician Chief Complaint: no new complaints TELE shows typical aflutter, now with worsened rates- 130s - Current Medication List Current Medications: Active Medications Acetaminophen (Tylenol -) 650 mg PO Q6H PRN PRN Reason: FEVER OR PAIN Last Admin: 04/15/17 13:07 Dose: 650 mg Acetaminophen (Tylenol -) 650 mg PO Q6H PRN PRN Reason: PAIN Last Admin: 04/15/17 23:48 Dose: 650 mg Ascorbic Acid (Vitamin C -) 500 mg PO DAILY [facility] [place] Last Admin: 04/15/17 09:43 Dose: 500 mg Aspirin (Asa -) 81 mg PO DAILY [facility] Last Admin: 04/15/17 09:43 Dose: 81 mg Atorvastatin Calcium (Lipitor -) 20 mg PO HS [facility] Last Admin: 04/15/17 21:45 Dose: 20 mg Bumetanide (Bumex -) 2 mg PO DAILY [facility] Last Admin: 04/15/17 09:45 Dose: 2 mg Cholecalciferol (Vitamin D3 -) 1,000 unit PO DAILY [facility] [place] Last Admin: 04/15/17 09:43 Dose: 1,000 unit Doxycycline Hyclate (Vibramycin -) 100 mg PO BID@1000,1800 [facility] Last Admin: 04/15/17 18:51 Dose: 100 mg Enalapril Maleate (Vasotec -) 5 mg PO DAILY [facility] Enoxaparin Sodium (Lovenox -) 40 mg SQ DAILY [facility] Last Admin: 04/15/17 13:09 Dose: 40 mg Folic Acid (Folic Acid -) 1 mg PO DAILY [facility] [place] Last Admin: 04/15/17 09:44 Dose: 1 mg Glipizide (Glucotrol -) 5 mg PO DAILY@0700 [facility] [place] Last Admin: 04/16/17 07:05 Dose: 5 mg Insulin Aspart (Novolog Vial Sliding Scale -) 1 vial SQ [facility] PRN Reason: Protocol Last Admin: 04/16/17 07:03 Dose: Not Given Insulin Detemir (Levemir Vial) 8 units SQ HS [facility] Last Admin: 04/15/17 21:44 Dose: 8 units Metformin HCl (Glucophage -) 500 mg PO BID@0700,1630 [facility] Last Admin: 04/16/17 07:02 Dose: 500 mg Metoprolol Succinate (Toprol Xl -) 75 mg PO BID [facility] Metoprolol Tartrate (Lopressor Injection -) 5 mg IVPB Q4H PRN PRN Reason: TACHYCARDIA Montelukast Sodium (Singulair -) 10 mg PO HS [facility] Last Admin: 04/15/17 21:45 Dose: 10 mg Oxycodone HCl (Roxicodone -) 10 mg PO Q6H PRN PRN Reason: PAIN Last Admin: 04/15/17 23:48 Dose: 10 mg Pantoprazole Sodium (Protonix -) 40 mg PO DAILY [facility] Last Admin: 04/15/17 09:43 Dose: 40 mg Prednisone (Deltasone -) 40 mg PO DAILY [facility] Sertraline HCl (Zoloft -) 200 mg PO HS [facility] Last Admin: 04/15/17 21:45 Dose: 200 mg Sitagliptin Phosphate (Januvia -) 50 mg PO DAILY@0700 [facility] Last Admin: 04/16/17 07:05 Dose: 50 mg - Objective Vital Signs: Vital Signs Temperature 98.4 F 04/16/17 06:05 Pulse Rate 109 H 04/16/17 06:05 Respiratory Rate 18 04/16/17 06:05 Blood Pressure 115/60 04/16/17 06:05 O2 Sat by Pulse Oximetry (%) 95 04/15/17 21:00 Constitutional: Yes: No Distress Cardiovascular: Yes: Regular Rate and Rhythm (flutter) Respiratory: Yes: CTA Bilaterally Gastrointestinal: Yes: Soft, Abdomen, Obese Edema: Yes Edema: LLE: 1+, RLE: 1+ Neurological: Yes: Alert, Oriented Labs: CBC, BMP 04/15/17 05:20 04/15/17 05:20 - ....Imaging EKG: Image Reviewed Assessment/Plan MP: Acute exacerbation of COPD ?Interstitial lung disease? vs mild pulmonary congestion PHTN, severe Morbid obesity Mild acute on chronic diastolic CHF Component of right sided CHF due to PHTN Paroxysmal Aflutter, possibly concomitant PA fib REC: -Heart rate not well controlled, will d/c Procardia and switch to Cardizem CD 120mg daily -Lengthy d/w her yesterday about usp benefits of full AC. Again, she is declining because she feels her episodes are triggered by specific circumstances (steroids) Reasonable to continue ASA for now, but she agrees to consideration of full AC and will discuss this and EP eval for ablation w/ lionel
[2017-04-16] MEDS ORDERED: PT OWN MED DRAWER 7, Y5N ONE (09:29)
[2017-04-16] MEDS ORDERED: predniSONE 20 MG TABLET (UD) PO SCH (10:00)
[2017-04-16] MEDS ORDERED: ENALAPRIL MALEATE 5 MG TABLET (FP) PO SCH (10:00)
[2017-04-16 10:07] VITALS: TEMP 98.2
[2017-04-16] MEDS: ACETAMINOPHEN 325 MG TABLET (FP) PO PRN (10:12)
[2017-04-16] MEDS: CHOLECALCIFEROL (VITAMIN D3) 1,000 UNIT TABLET (FP) PO SCH (10:15)
[2017-04-16] MEDS: ASCORBIC ACID 500 MG TABLET (FP) PO SCH (10:15)
[2017-04-16] MEDS: ASPIRIN 81 MG CHEWABLE TABLETS PO SCH (10:15)
[2017-04-16] MEDS: FOLIC ACID 1 MG TABLET (FP) PO SCH (10:15)
[2017-04-16] MEDS: BUMETANIDE 1 MG TABLET PO SCH (10:16)
[2017-04-16] MEDS: DOXYCYCLINE HYCLATE 100 MG CAPSULE PO SCH (10:16)
[2017-04-16] MEDS: PANTOPRAZOLE 40 MG TABLET (FP) PO SCH (10:16)
[2017-04-16] MEDS: ENOXAPARIN NA (PORCINE) 40 MG/0.4 ML DISP.SYRIN SQ SCH (10:16)
[2017-04-16 10:21] VITALS: BP 116/64
[2017-04-16] MEDS ORDERED: APIXABAN 5 MG TABLET PO SCH ×3 (10:30→22:00)
[2017-04-16 11:20] VITALS: PULSE 63
--- NOTE | 2017-04-16 12:13 | DS ---
Physical Examination Vital Signs: Vital Signs Temperature 98.2 F 04/16/17 08:00 Pulse Rate 63 04/16/17 10:50 Respiratory Rate 16 04/16/17 10:20 Blood Pressure 116/64 04/16/17 10:20 O2 Sat by Pulse Oximetry (%) 92 L 04/16/17 10:50 Labs: CBC, BMP 04/15/17 05:20 04/15/17 05:20 Discharge Summary Reason For Visit: PNEUMONIA/RESPIRATORY FAILURE WITH HYPOX Current Active Problems A-fib (Acute) Acute respiratory failure with hypoxia (Acute) COPD (chronic obstructive pulmonary disease) (Acute) HLD (hyperlipidemia) (Acute) Interstitial lung disease (Acute) Pneumonia (Acute) Pulmonary HTN (Acute) Sepsis (Acute) Tobacco abuse (Acute) Tobacco abuse counseling (Acute) Condition: Improved - Instructions Diet, Activity, Other Instructions: Ms. Tr Mendoza: Please continue the antibiotics of Doxycline 100mg twice per day for 7 more days (04/16/2017 to 04/22/2017). Please continue the Prednisone taper as follows: Date Dose Prednisone 40mg daily for 2 more days (starting on 04/17) Prednisone 30mg daily for 3 days Prednisone 20mg daily for 3 days Prednisone 10mg daily for 3 days Please call us with any questions that you may have. [facility] [phone] Referrals: Dc Riojas MD [Staff Physician] - 1 Week (Please follow-up with pulmonary within 1 week for outpatient pulmonary function testing) Colin Andrews MD [Staff Physician] - 1 Week Karen James MD [Primary Care Provider] - 1 Week Disposition: HOME - Home Medications Comprehensive Discharge Medication List: Ambulatory Orders Albuterol Sulfate Inhaler - [Ventolin HFA Inhaler -] 2 inh IH Q4H PRN 01/31/14 Ergocalciferol [Vitamin D2] 50,000 unit PO WEEKLY 01/31/14 Glipizide 5 mg PO DAILY 01/31/14 Sertraline HCl [Zoloft] 200 mg PO HS 01/31/14 Simvastatin [Zocor -] 40 mg PO HS 01/31/14 Ascorbic Acid [Vitamin C -] 500 mg PO DAILY 01/02/15 Cholecalciferol (Vitamin D3) [Vitamin D3 -] 1,000 unit PO DAILY 03/25/17 Acetaminophen [Tylenol .Regular Strength -] 650 mg PO Q6H PRN #0 tablet Albuterol 2.5/Ipratropium 0.5 [Duoneb -] 1 amp NEB QIDR amp 04/14/17 Aspirin [ASA -] 81 mg PO DAILY tab.chew 04/14/17 Bumetanide [Bumex -] 2 mg PO DAILY tablet 04/14/17 Doxycycline Hyclate 100 mg PO BID #14 capsule 04/14/17 Folic Acid - 1 mg PO DAILY tablet 04/14/17 Montelukast Na [Singulair -] 10 mg PO HS tablet 04/14/17 Pantoprazole Sodium [Protonix -] 40 mg PO DAILY #30 tab 04/14/17 Apixaban [Eliquis] 5 mg PO BID #60 tablet 04/16/17 Enalapril Maleate [Vasotec] 5 mg PO DAILY #30 tablet 04/16/17 Metformin HCl 500 mg PO BID #60 tablet 04/16/17 Metoprolol Succinate [Toprol Xl -] 25 mg PO BID #60 tab.sr.24h 04/16/17 Metoprolol Succinate [Toprol Xl] 50 mg PO BID #60 tab.er.24h 04/16/17 Prednisone [Deltasone -] 10 mg PO ASDIR #26 tab 04/16/17 Sitagliptin Phosphate [Januvia] 50 mg PO DAILY@0700 #30 tablet 04/16/17 - Discharge Referral Referred to [facility] No
--- NOTE | 2017-04-16 14:38 | PN ---
Progress Note (short form) - Note Progress Note: Breathing feels overall better. Some residual dry cough. Intake & Output 04/13/17 04/14/17 04/15/17 04/16/17 23:59 23:59 23:59 23:59 Intake Total 650 560 860 Balance 650 560 860 Last Vital Signs Temp Pulse Resp BP Pulse Ox 98.2 F 63 16 116/64 92 L 04/16/17 08:00 04/16/17 10:50 04/16/17 10:20 04/16/17 10:20 04/16/17 10:50 Active Medications Acetaminophen (Tylenol -) 650 mg PO Q6H PRN PRN Reason: FEVER OR PAIN Last Admin: 04/16/17 10:12 Dose: 650 mg Acetaminophen (Tylenol -) 650 mg PO Q6H PRN PRN Reason: PAIN Last Admin: 04/15/17 23:48 Dose: 650 mg Apixaban (Eliquis -) 5 mg PO BID [facility] Ascorbic Acid (Vitamin C -) 500 mg PO DAILY [facility] Last Admin: 04/16/17 10:15 Dose: 500 mg Aspirin (Asa -) 81 mg PO DAILY [facility] Last Admin: 04/16/17 10:15 Dose: 81 mg Atorvastatin Calcium (Lipitor -) 20 mg PO HS [facility] Last Admin: 04/15/17 21:45 Dose: 20 mg Bumetanide (Bumex -) 2 mg PO DAILY [facility] Last Admin: 04/16/17 10:16 Dose: 2 mg Cholecalciferol (Vitamin D3 -) 1,000 unit PO DAILY [facility] Last Admin: 04/16/17 10:15 Dose: 1,000 unit Doxycycline Hyclate (Vibramycin -) 100 mg PO BID@1000,1800 [facility] Last Admin: 04/16/17 10:16 Dose: 100 mg Enalapril Maleate (Vasotec -) 5 mg PO DAILY [facility] Last Admin: 04/16/17 10:16 Dose: 5 mg Folic Acid (Folic Acid -) 1 mg PO DAILY [facility] Last Admin: 04/16/17 10:15 Dose: 1 mg Glipizide (Glucotrol -) 5 mg PO DAILY@0700 [facility] Last Admin: 04/16/17 07:05 Dose: 5 mg Insulin Aspart (Novolog Vial Sliding Scale -) 1 vial SQ ACHS [facility] PRN Reason: Protocol Last Admin: 04/16/17 12:03 Dose: Not Given Insulin Detemir (Levemir Vial) 8 units SQ HS [facility] Last Admin: 04/15/17 21:44 Dose: 8 units Metformin HCl (Glucophage -) 500 mg PO BID@0700,1630 [facility] Last Admin: 04/16/17 07:02 Dose: 500 mg Metoprolol Succinate (Toprol Xl -) 75 mg PO BID [facility] Last Admin: 04/16/17 08:10 Dose: 75 mg Metoprolol Tartrate (Lopressor Injection -) 5 mg IVPB Q4H PRN PRN Reason: TACHYCARDIA Montelukast Sodium (Singulair -) 10 mg PO HS [facility] Last Admin: 04/15/17 21:45 Dose: 10 mg Oxycodone HCl (Roxicodone -) 10 mg PO Q6H PRN PRN Reason: PAIN Last Admin: 04/15/17 23:48 Dose: 10 mg Pantoprazole Sodium (Protonix -) 40 mg PO DAILY [facility] Last Admin: 04/16/17 10:16 Dose: 40 mg Prednisone (Deltasone -) 40 mg PO DAILY [facility] Last Admin: 04/16/17 10:15 Dose: 40 mg Sertraline HCl (Zoloft -) 200 mg PO HS [facility] Last Admin: 04/15/17 21:45 Dose: 200 mg Sitagliptin Phosphate (Januvia -) 50 mg PO DAILY@0700 [facility] Last Admin: 04/16/17 07:05 Dose: 50 mg Constitutional: Yes: NAD Eyes: Yes: WNL HENT: Yes: WNL Neck: Yes: WNL Cardiovascular: Yes: Regular Rate and Rhythm, S1, S2 Respiratory: Yes: Few scattered bilateral Rhonchi, no wheeze Gastrointestinal: Yes: Normal Bowel Sounds, Soft, obese Extremities: Yes: WNL Edema: No Labs: Laboratory Results - last 24 hr 04/15/17 04/15/17 04/16/17 17:30 21:01 06:00 POC Glucometer 313 139 Hemoglobin A1c % 7.6 H D 04/16/17 04/16/17 06:31 12:01 POC Glucometer 115 102 Hemoglobin A1c % Problem List - Problems (1) A-fib Code(s): I48.91 - UNSPECIFIED ATRIAL FIBRILLATION (2) Acute respiratory failure with hypoxia Code(s): J96.01 - ACUTE RESPIRATORY FAILURE WITH HYPOXIA (3) HLD (hyperlipidemia) Code(s): E78.5 - HYPERLIPIDEMIA, UNSPECIFIED (4) Pneumonia Code(s): J18.9 - PNEUMONIA, UNSPECIFIED ORGANISM Qualifiers: Pneumonia type: due to unspecified organism Laterality: bilateral Lung location: lower lobe of lung Qualified Code(s): J18.9 - Pneumonia, unspecified organism; J18.9 - Pneumonia, unspecified organism (5) Asthma Code(s): J45.909 - UNSPECIFIED ASTHMA, UNCOMPLICATED (6) Fever Code(s): R50.9 - FEVER, UNSPECIFIED (7) Diabetes mellitus treated with oral medication Code(s): E11.9 - TYPE 2 DIABETES MELLITUS WITHOUT COMPLICATIONS (8) Obesity, morbid, BMI 50 or higher Code(s): E66.01 - MORBID (SEVERE) OBESITY DUE TO EXCESS CALORIES (9) Sleep apnea Code(s): G47.30 - SLEEP APNEA, UNSPECIFIED (10) Pulmonary HTN Code(s): I27.20 - PULMONARY HYPERTENSION, UNSPECIFIED (11) Interstitial lung disease Code(s): J84.9 - INTERSTITIAL PULMONARY DISEASE, UNSPECIFIED (12) COPD (chronic obstructive pulmonary disease) Code(s): J44.9 - CHRONIC OBSTRUCTIVE PULMONARY DISEASE, UNSPECIFIED (13) Tobacco abuse Code(s): Z72.0 - TOBACCO USE (14) Tobacco abuse counseling Code(s): Z71.6 - TOBACCO ABUSE COUNSELING Assessment/Plan IMP ACUTE HYPOXEMIC RESPIRATORY FAILURE IMPROVING COPD EXACERBATION ? PNEUMONIA ILD PULMONARY HTN AFIB NIDDM HTN OSAS TOBACCO ABUSE PLAN PREDNISONE TAPER INHALED BRONCHODILATORS O2 ANTIBIOTICS PFTS OUTPATIENT F/U CHEST CT OUTPATIENT COMPLIANCE WITH CPAP DISCUSSED : NEEDS NEW MASK SMOKING CESSATION COUNSELED PATIENT WILL FOLLOW WITH DR LORA IN THE OFFICE DR NARAYAN
== END 2017-04-16 15:27 | disposition home or self-care (01) | DRG 133 ==
LOC: SUPCPDRO 22:16 → JER 22:16 → JERBED 04-10 04:36 → UNDOADMIN 04-10 05:21 → JERBED 04-10 05:21 → J6S 04-10 08:03 → J4W 04-14 18:20
PROVIDERS: ADMIT Internal Medicine; ATTEND Registered Nurse
PROC: 3E0F7GC Introduction of Other Therapeutic Substance into Respiratory Tract, Via Natural or Artificial Opening (ICD-10-PCS; principal; 2017-04-11)
DX: J96.01 Acute respiratory failure with hypoxia (principal); I48.91 Unspecified atrial fibrillation; I50.33 Acute on chronic diastolic (congestive) heart failure; J45.901 Unspecified asthma with (acute) exacerbation; J84.9 Interstitial pulmonary disease, unspecified; I27.20 Pulmonary hypertension, unspecified; I11.0 Hypertensive heart disease with heart failure; J18.9 Pneumonia, unspecified organism; I48.92 Unspecified atrial flutter; K21.9 Gastro-esophageal reflux disease without esophagitis; F32.89 Other specified depressive episodes; E78.5 Hyperlipidemia, unspecified; E11.40 Type 2 diabetes mellitus with diabetic neuropathy, unspecified; J32.8 Other chronic sinusitis; K64.8 Other hemorrhoids; F17.210 Nicotine dependence, cigarettes, uncomplicated; E66.01 Morbid (severe) obesity due to excess calories; Z68.41 Body mass index [BMI] 40.0-44.9, adult; G47.33 Obstructive sleep apnea (adult) (pediatric); Z71.6 Tobacco abuse counseling; I47.1 Supraventricular tachycardia; J44.1 Chronic obstructive pulmonary disease with (acute) exacerbation; E11.65 Type 2 diabetes mellitus with hyperglycemia; Z79.52 Long term (current) use of systemic steroids
CPT/HCPCS: 36415; 71010-TC; 71260-TC; 80048; 80053; 81003; 81015; 82550; 83036; 83605; 83735; 83880; 84484; 85025; 87040; 87086; 87804; 87899; 93005; 93010; 93306-TC; 94010; 94640; 94761; 99282-25; J1644

== ENCOUNTER 2021-07-31 19:30 | Inpatient (IN) | payer OTHER ==
[2021-07-31 19:49] VITALS: BMI 34.4
[2021-07-31] MEDS ORDERED: LEVALBUTEROL HCL 0.63 MG/3 ML VIAL.NEB. IH PRN (20:55)
[2021-07-31] MEDS ORDERED: methylPREDNISolone NA SUCC 125 MG/2 ML VIAL IVPUSH ONE (20:56)
[2021-07-31] MEDS ORDERED: methylPREDNISolone NA SUCC 125 MG/2 ML VIAL ONE (21:29)
[2021-07-31 22:12] LABS: BASO % 0.5 % (0-2.0); EOS % 0.8 % (0-4.5); HEMATOCRIT 42.7 % (32.4-45.2); HEMOGLOBIN 13.6 GM/dL (10.7-15.3); LYMPH % 32.8 % (8-40); MCH 24.8 pg (25.7-33.7); MCHC 31.9 g/dl (32.0-36.0); MEAN CELL VOLUME 77.7 fl (80-96); MEAN PLT VOLUME 8.1 fl (7.5-11.1); NEUT % 57.9 % (42.8-82.8); PLATELET COUNT 191 10^3/uL (134-434); RDW 20.3 % (11.6-15.6); WHITE BLOOD COUNT 5.3 K/mm3 (4.0-10.0)
[2021-07-31] MEDS ORDERED: FUROSEMIDE 40 MG/4 ML INJECTABLE VIAL IVPUSH ONE (22:26)
[2021-07-31 22:30] LABS: ALBUMIN 3.4 g/dl (3.4-5.0); CALCIUM 8.9 mg/dL (8.5-10.1)
[2021-07-31 22:34] LABS: CREATININE 0.9 mg/dL (0.55-1.3)
[2021-07-31 22:36] LABS: BILIRUBIN,TOTAL 0.5 mg/dL (0.2-1); TOT PROT 8.2 g/dl (6.4-8.2)
[2021-07-31 22:39] LABS: MAGNESIUM 1.7 mg/dL (1.8-2.4)
[2021-07-31] MEDS ORDERED: FUROSEMIDE 40 MG/4 ML INJECTABLE VIAL ONE (23:56)
[2021-08-01] MEDS ORDERED: MAGNESIUM SULF 50% (8.12 MEQ/2 ML-1 GM VIAL) IVPB ONE (00:57)
[2021-08-01] MEDS ORDERED: MAGNESIUM SULFATE IN WATER 2 GM/50 ML IVPB IVPB ONE (01:50)
[2021-08-01] MEDS ORDERED: ACETAMINOPHEN 325 MG TABLET (FP) PO PRN (02:52)
[2021-08-01] MEDS ORDERED: ALBUTEROL SO4 0.083% IH SOL 2.5 MG/3 ML VIAL.NEB. NEB PRN (03:01)
[2021-08-01] MEDS ORDERED: PANTOPRAZOLE 40 MG TABLET PO PRN (03:09)
[2021-08-01] MEDS: NYSTATIN 500,000 UNITS/5 ML SUSPENSION PO SCH ×3 (06:25→17:57)
[2021-08-01] MEDS: INSULIN SLIDING SCALE (NOVOLOG) 1 VIAL SQ SCH ×4 (06:25→21:22)
[2021-08-01] MEDS: ALBUTEROL SO4 2.5/IPRATROPIUM 0.5 INH SOL 3 ML VIAL.NEB. NEB SCH ×4 (07:50→20:15)
[2021-08-01 08:51] LABS: BASO % 0.2 % (0-2.0); HEMATOCRIT 41.6 % (32.4-45.2); HEMOGLOBIN 12.8 GM/dL (10.7-15.3); LYMPH % 10.1 % (8-40); MCH 24.2 pg (25.7-33.7); MCHC 30.7 g/dl (32.0-36.0); MEAN CELL VOLUME 78.8 fl (80-96); MEAN PLT VOLUME 9.1 fl (7.5-11.1); MONO % 1.4 % (3.8-10.2); NEUT % 88.3 % (42.8-82.8); PLATELET COUNT 196 10^3/uL (134-434); RBC 5.28 M/mm3 (3.60-5.2); RDW 20.4 % (11.6-15.6)
[2021-08-01 09:14] LABS: CALCIUM 8.4 mg/dL (8.5-10.1)
[2021-08-01 09:15] LABS: BLOOD UREA NITROGEN 12.3 mg/dL (7-18); MAGNESIUM 1.9 mg/dL (1.8-2.4)
[2021-08-01 09:18] LABS: CREATININE 0.9 mg/dL (0.55-1.3); PHOSPHOROUS 3.4 mg/dL (2.5-4.9)
[2021-08-01 09:19] LABS: BILIRUBIN,TOTAL 0.6 mg/dL (0.2-1); CHOLESTEROL 169 mg/dL (50-200); TOT PROT 7.5 g/dl (6.4-8.2)
[2021-08-01 09:20] LABS: TRIGLYCERIDES 52 mg/dL (0-150)
[2021-08-01 09:21] LABS: LDL CHOLESTEROL (ONLY SJRH) 109 mg/dL (5-100)
[2021-08-01 09:22] LABS: HDL CHOLESTEROL 46 mg/dL (40-60)
[2021-08-01] MEDS ORDERED: ENOXAPARIN NA (PORCINE) 40 MG/0.4 ML DISP.SYRIN SQ SCH (10:00)
[2021-08-01] MEDS ORDERED: cefTRIAXone SODIUM 1 GM VIAL ONE (11:01)
[2021-08-01] MEDS ORDERED: DEXTROSE 5%-WATER - 50 ML IVPB ONE (11:01)
[2021-08-01] MEDS: AZITHROMYCIN IVPB 500 MG/250 ML BAG IVPB SCH (11:07)
[2021-08-01] MEDS: CEFTRIAXONE 1 GM in DEXTROSE 5%-WATER - 50 ML IVPB SCH (11:11)
[2021-08-01] MEDS: FUROSEMIDE 40 MG/4 ML INJECTABLE VIAL IVPUSH SCH (11:14)
[2021-08-01] MEDS: ENALAPRIL MALEATE 5 MG TABLET PO SCH (11:15)
[2021-08-01] MEDS: NIFEdipine E.R. 30 MG TABLET PO SCH (11:16)
[2021-08-01] MEDS: POLYETHYLENE GLYCOL (HEALTHYLAX) 3350 17 GM PACKET PO SCH (11:17)
[2021-08-01] MEDS: NICOTINE 7 MG/24 HOURS TOPICAL PATCH TD SCH (11:17)
[2021-08-01] MEDS: APIXABAN 5 MG TABLET PO SCH ×2 (11:17→21:22)
[2021-08-01] MEDS: methylPREDNISolone NA SUCC 40 MG/1 ML VIAL IVPB SCH (11:17)
[2021-08-01] MEDS: MONTELUKAST NA 10 MG TABLET PO SCH (21:22)
[2021-08-01] MEDS: ATORVASTATIN CA 20 MG TABLET (FP) PO SCH (21:22)
[2021-08-01] MEDS: SERTRALINE HCL 50 MG TABLET (FP) PO SCH (21:22)
[2021-08-01 22:22] LABS: N-TERMINAL BNP 1045.9 pg/ml (5-125)
[2021-08-02] MEDS: NYSTATIN 500,000 UNITS/5 ML SUSPENSION PO SCH ×4 (00:05→17:11)
[2021-08-02] MEDS: INSULIN SLIDING SCALE (NOVOLOG) 1 VIAL SQ SCH ×4 (06:36→22:31)
[2021-08-02 08:23] LABS: BASO % 0.3 % (0-2.0); EOS % 0.3 % (0-4.5); HEMATOCRIT 41.7 % (32.4-45.2); HEMOGLOBIN 13.3 GM/dL (10.7-15.3); LYMPH % 15.5 % (8-40); MCHC 31.8 g/dl (32.0-36.0); MEAN CELL VOLUME 78.6 fl (80-96); MEAN PLT VOLUME 8.6 fl (7.5-11.1); MONO % 5.4 % (3.8-10.2); NEUT % 78.5 % (42.8-82.8); PLATELET COUNT 194 10^3/uL (134-434); RBC 5.31 M/mm3 (3.60-5.2); RDW 20.8 % (11.6-15.6); WHITE BLOOD COUNT 10.1 K/mm3 (4.0-10.0)
[2021-08-02 08:43] LABS: ALBUMIN 3.3 g/dl (3.4-5.0); BLOOD UREA NITROGEN 14.5 mg/dL (7-18); CALCIUM 9.1 mg/dL (8.5-10.1); MAGNESIUM 2.1 mg/dL (1.8-2.4)
[2021-08-02 08:46] LABS: CREATININE 0.7 mg/dL (0.55-1.3)
[2021-08-02 08:48] LABS: BILIRUBIN,TOTAL 0.5 mg/dL (0.2-1); TOT PROT 7.6 g/dl (6.4-8.2)
[2021-08-02] MEDS: ALBUTEROL SO4 2.5/IPRATROPIUM 0.5 INH SOL 3 ML VIAL.NEB. NEB SCH ×4 (08:49→20:38)
[2021-08-02] MEDS ORDERED: DEXTROSE 5%-WATER - 50 ML IVPB ONE (09:32)
[2021-08-02] MEDS ORDERED: cefTRIAXone SODIUM 1 GM VIAL ONE (09:32)
[2021-08-02] MEDS: APIXABAN 5 MG TABLET PO SCH ×2 (09:35→22:30)
[2021-08-02] MEDS: NIFEdipine E.R. 30 MG TABLET PO SCH (09:36)
[2021-08-02] MEDS: ENALAPRIL MALEATE 5 MG TABLET PO SCH (09:37)
[2021-08-02] MEDS: NICOTINE 7 MG/24 HOURS TOPICAL PATCH TD SCH (09:37)
[2021-08-02] MEDS: POLYETHYLENE GLYCOL (HEALTHYLAX) 3350 17 GM PACKET PO SCH (09:37)
[2021-08-02] MEDS: CEFTRIAXONE 1 GM in DEXTROSE 5%-WATER - 50 ML IVPB SCH (09:41)
[2021-08-02] MEDS: FUROSEMIDE 40 MG/4 ML INJECTABLE VIAL IVPUSH SCH (09:41)
[2021-08-02] MEDS: methylPREDNISolone NA SUCC 40 MG/1 ML VIAL IVPB SCH (09:42)
[2021-08-02] MEDS: AZITHROMYCIN IVPB 500 MG/250 ML BAG IVPB SCH (10:34)
[2021-08-02 10:53] LABS: ANISOCYTOSIS 1+; MACROCYTOSIS 0; OVALOCYTE 1+; PLATELET ESTIMATE NORMAL; TARGET CELLS 1+
[2021-08-02] MEDS: ATORVASTATIN CA 20 MG TABLET (FP) PO SCH (22:30)
[2021-08-02] MEDS: MONTELUKAST NA 10 MG TABLET PO SCH (22:30)
[2021-08-02] MEDS: SERTRALINE HCL 50 MG TABLET (FP) PO SCH (22:30)
[2021-08-03] MEDS: NYSTATIN 500,000 UNITS/5 ML SUSPENSION PO SCH ×4 (01:40→17:05)
[2021-08-03] MEDS: INSULIN SLIDING SCALE (NOVOLOG) 1 VIAL SQ SCH ×4 (06:28→21:23)
[2021-08-03] MEDS: ALBUTEROL SO4 2.5/IPRATROPIUM 0.5 INH SOL 3 ML VIAL.NEB. NEB SCH ×4 (07:46→20:50)
[2021-08-03 08:53] LABS: BASO % 0.4 % (0-2.0); EOS % 0.4 % (0-4.5); HEMATOCRIT 41.8 % (32.4-45.2); MCH 24.4 pg (25.7-33.7); MCHC 31.1 g/dl (32.0-36.0); MEAN CELL VOLUME 78.6 fl (80-96); MEAN PLT VOLUME 8.8 fl (7.5-11.1); MONO % 6.1 % (3.8-10.2); NEUT % 70.1 % (42.8-82.8); PLATELET COUNT 203 10^3/uL (134-434); RBC 5.31 M/mm3 (3.60-5.2); RDW 20.5 % (11.6-15.6); WHITE BLOOD COUNT 9.2 K/mm3 (4.0-10.0)
[2021-08-03 09:19] LABS: ALBUMIN 3.3 g/dl (3.4-5.0); BLOOD UREA NITROGEN 15.5 mg/dL (7-18); CALCIUM 9.2 mg/dL (8.5-10.1); MAGNESIUM 2.1 mg/dL (1.8-2.4)
[2021-08-03 09:23] LABS: CREATININE 0.8 mg/dL (0.55-1.3)
[2021-08-03 09:25] LABS: BILIRUBIN,TOTAL 0.7 mg/dL (0.2-1); TOT PROT 7.9 g/dl (6.4-8.2)
[2021-08-03] MEDS: ENALAPRIL MALEATE 5 MG TABLET PO SCH (09:26)
[2021-08-03] MEDS: NIFEdipine E.R. 30 MG TABLET PO SCH (09:27)
[2021-08-03] MEDS ORDERED: DEXTROSE 5%-WATER - 50 ML IVPB ONE (09:27)
[2021-08-03] MEDS: MULTIVITAMINS (DAILY MVI) TABLET (FP) PO SCH (09:27)
[2021-08-03] MEDS: ASCORBIC ACID 500 MG TABLET (FP) PO SCH (09:27)
[2021-08-03] MEDS: CHOLECALCIFEROL (VIT D3) 1,000 UNIT (25 MCG) TABLET PO SCH (09:27)
[2021-08-03] MEDS: APIXABAN 5 MG TABLET PO SCH ×2 (09:27→21:21)
[2021-08-03] MEDS ORDERED: cefTRIAXone SODIUM 1 GM VIAL ONE (09:27)
[2021-08-03] MEDS: FOLIC ACID 1 MG TABLET (FP) PO SCH (09:27)
[2021-08-03] MEDS: CEFTRIAXONE 1 GM in DEXTROSE 5%-WATER - 50 ML IVPB SCH (09:28)
[2021-08-03] MEDS: FUROSEMIDE 40 MG/4 ML INJECTABLE VIAL IVPUSH SCH (09:29)
[2021-08-03] MEDS: methylPREDNISolone NA SUCC 40 MG/1 ML VIAL IVPB SCH (09:32)
[2021-08-03] MEDS: POLYETHYLENE GLYCOL (HEALTHYLAX) 3350 17 GM PACKET PO SCH (09:33)
[2021-08-03] MEDS: NICOTINE 7 MG/24 HOURS TOPICAL PATCH TD SCH (09:33)
[2021-08-03] MEDS: AZITHROMYCIN IVPB 500 MG/250 ML BAG IVPB SCH (10:10)
[2021-08-03] MEDS: MONTELUKAST NA 10 MG TABLET PO SCH (21:21)
[2021-08-03] MEDS: ATORVASTATIN CA 20 MG TABLET (FP) PO SCH (21:21)
[2021-08-03] MEDS: SERTRALINE HCL 50 MG TABLET (FP) PO SCH (21:21)
[2021-08-04] MEDS: NYSTATIN 500,000 UNITS/5 ML SUSPENSION PO SCH ×5 (00:43→23:18)
[2021-08-04] MEDS: INSULIN SLIDING SCALE (NOVOLOG) 1 VIAL SQ SCH ×4 (06:26→21:57)
[2021-08-04 07:16] LABS: BASO % 0.5 % (0-2.0); EOS % 0.5 % (0-4.5); HEMATOCRIT 41.7 % (32.4-45.2); HEMOGLOBIN 12.7 GM/dL (10.7-15.3); LYMPH % 23.2 % (8-40); MCH 24.1 pg (25.7-33.7); MCHC 30.5 g/dl (32.0-36.0); MEAN PLT VOLUME 8.7 fl (7.5-11.1); MONO % 7.7 % (3.8-10.2); NEUT % 68.1 % (42.8-82.8); PLATELET COUNT 202 10^3/uL (134-434); RBC 5.27 M/mm3 (3.60-5.2); RDW 20.5 % (11.6-15.6); WHITE BLOOD COUNT 8.2 K/mm3 (4.0-10.0)
[2021-08-04 07:27] LABS: CALCIUM 8.8 mg/dL (8.5-10.1)
[2021-08-04 07:28] LABS: ALBUMIN 3.2 g/dl (3.4-5.0); BLOOD UREA NITROGEN 16.7 mg/dL (7-18); MAGNESIUM 2.1 mg/dL (1.8-2.4)
[2021-08-04 07:31] LABS: CREATININE 0.8 mg/dL (0.55-1.3)
[2021-08-04 07:32] LABS: BILIRUBIN,TOTAL 0.5 mg/dL (0.2-1); TOT PROT 7.6 g/dl (6.4-8.2)
[2021-08-04] MEDS: ALBUTEROL SO4 2.5/IPRATROPIUM 0.5 INH SOL 3 ML VIAL.NEB. NEB SCH ×4 (08:51→20:40)
[2021-08-04] MEDS ORDERED: cefTRIAXone SODIUM 1 GM VIAL ONE (09:37)
[2021-08-04] MEDS ORDERED: DEXTROSE 5%-WATER - 50 ML IVPB ONE (09:37)
[2021-08-04] MEDS: FOLIC ACID 1 MG TABLET (FP) PO SCH (09:45)
[2021-08-04] MEDS: APIXABAN 5 MG TABLET PO SCH ×2 (09:45→21:47)
[2021-08-04] MEDS: FUROSEMIDE 40 MG/4 ML INJECTABLE VIAL IVPUSH SCH (09:45)
[2021-08-04] MEDS: POLYETHYLENE GLYCOL (HEALTHYLAX) 3350 17 GM PACKET PO SCH (09:45)
[2021-08-04] MEDS: NICOTINE 7 MG/24 HOURS TOPICAL PATCH TD SCH (09:46)
[2021-08-04] MEDS: CEFTRIAXONE 1 GM in DEXTROSE 5%-WATER - 50 ML IVPB SCH (09:46)
[2021-08-04] MEDS: NIFEdipine E.R. 30 MG TABLET PO SCH (09:46)
[2021-08-04] MEDS: methylPREDNISolone NA SUCC 40 MG/1 ML VIAL IVPB SCH (09:47)
[2021-08-04] MEDS: ENALAPRIL MALEATE 5 MG TABLET PO SCH (09:47)
[2021-08-04] MEDS: ASCORBIC ACID 500 MG TABLET (FP) PO SCH (09:47)
[2021-08-04] MEDS: MULTIVITAMINS (DAILY MVI) TABLET (FP) PO SCH (09:47)
[2021-08-04] MEDS: CHOLECALCIFEROL (VIT D3) 1,000 UNIT (25 MCG) TABLET PO SCH (09:48)
[2021-08-04] MEDS: AZITHROMYCIN IVPB 500 MG/250 ML BAG IVPB SCH (09:50)
[2021-08-04] MEDS: MONTELUKAST NA 10 MG TABLET PO SCH (21:47)
[2021-08-04] MEDS: ATORVASTATIN CA 20 MG TABLET (FP) PO SCH (21:47)
[2021-08-04] MEDS: SERTRALINE HCL 50 MG TABLET (FP) PO SCH (21:48)
[2021-08-05] MEDS: NYSTATIN 500,000 UNITS/5 ML SUSPENSION PO SCH ×3 (06:06→17:51)
[2021-08-05] MEDS: INSULIN SLIDING SCALE (NOVOLOG) 1 VIAL SQ SCH ×4 (06:09→22:04)
[2021-08-05] MEDS ORDERED: FUROSEMIDE 40 MG TABLET (FP) PO ONE (07:25)
[2021-08-05] MEDS: ALBUTEROL SO4 2.5/IPRATROPIUM 0.5 INH SOL 3 ML VIAL.NEB. NEB SCH ×4 (07:51→19:55)
[2021-08-05 08:21] LABS: BASO % 0.3 % (0-2.0); EOS % 1.1 % (0-4.5); HEMATOCRIT 39.2 % (32.4-45.2); HEMOGLOBIN 12.6 GM/dL (10.7-15.3); MCH 25.1 pg (25.7-33.7); MCHC 32.1 g/dl (32.0-36.0); MEAN CELL VOLUME 78.2 fl (80-96); MEAN PLT VOLUME 8.7 fl (7.5-11.1); MONO % 6.7 % (3.8-10.2); NEUT % 65.9 % (42.8-82.8); PLATELET COUNT 171 10^3/uL (134-434); RBC 5.01 M/mm3 (3.60-5.2); RDW 20.4 % (11.6-15.6); WHITE BLOOD COUNT 7.2 K/mm3 (4.0-10.0)
[2021-08-05 08:34] LABS: CALCIUM 8.8 mg/dL (8.5-10.1)
[2021-08-05 08:35] LABS: BLOOD UREA NITROGEN 18.1 mg/dL (7-18)
[2021-08-05 08:38] LABS: CREATININE 0.7 mg/dL (0.55-1.3)
[2021-08-05 08:39] LABS: BILIRUBIN,TOTAL 0.5 mg/dL (0.2-1); TOT PROT 7.2 g/dl (6.4-8.2)
[2021-08-05] MEDS ORDERED: cefTRIAXone SODIUM 1 GM VIAL ONE (10:54)
[2021-08-05] MEDS ORDERED: DEXTROSE 5%-WATER - 50 ML IVPB ONE (10:54)
[2021-08-05] MEDS: POLYETHYLENE GLYCOL (HEALTHYLAX) 3350 17 GM PACKET PO SCH (10:57)
[2021-08-05] MEDS: APIXABAN 5 MG TABLET PO SCH ×2 (10:57→22:03)
[2021-08-05] MEDS: NICOTINE 7 MG/24 HOURS TOPICAL PATCH TD SCH (10:57)
[2021-08-05] MEDS: NIFEdipine E.R. 30 MG TABLET PO SCH (10:57)
[2021-08-05] MEDS: FOLIC ACID 1 MG TABLET (FP) PO SCH (10:57)
[2021-08-05] MEDS: MULTIVITAMINS (DAILY MVI) TABLET (FP) PO SCH (10:58)
[2021-08-05] MEDS: CEFTRIAXONE 1 GM in DEXTROSE 5%-WATER - 50 ML IVPB SCH (10:58)
[2021-08-05] MEDS: ENALAPRIL MALEATE 5 MG TABLET PO SCH (10:58)
[2021-08-05] MEDS: ASCORBIC ACID 500 MG TABLET (FP) PO SCH (10:58)
[2021-08-05] MEDS: methylPREDNISolone NA SUCC 40 MG/1 ML VIAL IVPB SCH (10:58)
[2021-08-05] MEDS: CHOLECALCIFEROL (VIT D3) 1,000 UNIT (25 MCG) TABLET PO SCH (10:59)
[2021-08-05] MEDS: AZITHROMYCIN IVPB 500 MG/250 ML BAG IVPB SCH (10:59)
[2021-08-05] MEDS: BUMETANIDE 1 MG TABLET PO SCH (11:41)
[2021-08-05] MEDS: ATORVASTATIN CA 20 MG TABLET (FP) PO SCH (22:04)
[2021-08-05] MEDS: MONTELUKAST NA 10 MG TABLET PO SCH (22:04)
[2021-08-05] MEDS: SERTRALINE HCL 50 MG TABLET (FP) PO SCH (22:04)
[2021-08-06] MEDS: NYSTATIN 500,000 UNITS/5 ML SUSPENSION PO SCH ×3 (00:15→12:05)
[2021-08-06] MEDS: INSULIN SLIDING SCALE (NOVOLOG) 1 VIAL SQ SCH ×2 (06:37→12:05)
[2021-08-06] MEDS: ALBUTEROL SO4 2.5/IPRATROPIUM 0.5 INH SOL 3 ML VIAL.NEB. NEB SCH ×3 (08:35→16:22)
[2021-08-06 08:56] LABS: BASO % 0.3 % (0-2.0); EOS % 0.9 % (0-4.5); HEMATOCRIT 42.2 % (32.4-45.2); HEMOGLOBIN 12.9 GM/dL (10.7-15.3); LYMPH % 28.9 % (8-40); MCH 24.1 pg (25.7-33.7); MCHC 30.6 g/dl (32.0-36.0); MEAN CELL VOLUME 78.7 fl (80-96); MEAN PLT VOLUME 8.7 fl (7.5-11.1); MONO % 5.2 % (3.8-10.2); NEUT % 64.7 % (42.8-82.8); PLATELET COUNT 193 10^3/uL (134-434); RBC 5.36 M/mm3 (3.60-5.2); RDW 20.9 % (11.6-15.6); WHITE BLOOD COUNT 7.1 K/mm3 (4.0-10.0)
[2021-08-06 09:15] LABS: CALCIUM 8.8 mg/dL (8.5-10.1)
[2021-08-06 09:16] LABS: ALBUMIN 3.2 g/dl (3.4-5.0); BLOOD UREA NITROGEN 18.7 mg/dL (7-18)
[2021-08-06 09:19] LABS: CREATININE 0.8 mg/dL (0.55-1.3)
[2021-08-06 09:20] LABS: TOT PROT 7.4 g/dl (6.4-8.2)
[2021-08-06 09:21] LABS: BILIRUBIN,TOTAL 0.7 mg/dL (0.2-1)
[2021-08-06] MEDS ORDERED: BUMETANIDE 1 MG TABLET PO SCH (10:00)
[2021-08-06] MEDS ORDERED: predniSONE 20 MG TABLET (UD) PO SCH (10:00)
[2021-08-06] MEDS: BUMETANIDE 1 MG TABLET PO SCH (10:13)
[2021-08-06] MEDS: NICOTINE 7 MG/24 HOURS TOPICAL PATCH TD SCH (10:14)
[2021-08-06] MEDS: NIFEdipine E.R. 30 MG TABLET PO SCH (10:14)
[2021-08-06] MEDS: ENALAPRIL MALEATE 5 MG TABLET PO SCH (10:14)
[2021-08-06] MEDS: MULTIVITAMINS (DAILY MVI) TABLET (FP) PO SCH (10:14)
[2021-08-06] MEDS: FOLIC ACID 1 MG TABLET (FP) PO SCH (10:14)
[2021-08-06] MEDS: ASCORBIC ACID 500 MG TABLET (FP) PO SCH (10:14)
[2021-08-06] MEDS: APIXABAN 5 MG TABLET PO SCH (10:14)
[2021-08-06] MEDS: CHOLECALCIFEROL (VIT D3) 1,000 UNIT (25 MCG) TABLET PO SCH (10:15)
[2021-08-06] MEDS: POLYETHYLENE GLYCOL (HEALTHYLAX) 3350 17 GM PACKET PO SCH (10:15)
[2021-08-06 10:36] LABS: ANISOCYTOSIS 2+; MACROCYTOSIS 1+
[2021-08-06 10:44] LABS: PLATELET ESTIMATE ADEQUATE
[2021-08-06 15:08] VITALS: BP 129/60; PULSE 73; TEMP 98.6
== END 2021-08-06 16:45 | disposition home health service (06) | DRG 194 ==
LOC: JER 19:30 → JERBED 22:27 → J4S 08-01 03:22
PROVIDERS: ADMIT Internal Medicine; ATTEND Nurse Practitioner Family
DX: I11.0 Hypertensive heart disease with heart failure (principal); I50.33 Acute on chronic diastolic (congestive) heart failure; I48.91 Unspecified atrial fibrillation; K21.9 Gastro-esophageal reflux disease without esophagitis; E78.5 Hyperlipidemia, unspecified; E11.40 Type 2 diabetes mellitus with diabetic neuropathy, unspecified; J44.9 Chronic obstructive pulmonary disease, unspecified; B37.0 Candidal stomatitis; J32.9 Chronic sinusitis, unspecified; J45.909 Unspecified asthma, uncomplicated; I25.10 Atherosclerotic heart disease of native coronary artery without angina pectoris; I48.92 Unspecified atrial flutter; F32.A Depression, unspecified; I27.20 Pulmonary hypertension, unspecified; E66.01 Morbid (severe) obesity due to excess calories; Z68.41 Body mass index [BMI] 40.0-44.9, adult; G47.33 Obstructive sleep apnea (adult) (pediatric); F17.200 Nicotine dependence, unspecified, uncomplicated; Z86.16 Personal history of COVID-19
CPT/HCPCS: 36415; 71045-TC-FY; 71250-TC; 80053; 80061; 82550; 82553; 82962; 83036; 83735; 83880; 84100; 84443; 84484; 85025; 85379; 93005; 93010; 93306-TC; 93970-TC; 94640; 94761; 97116-GP; 97161-GP; 99285-25; C9803; U0003; U0005

== ENCOUNTER 2021-09-02 17:13 | Emergency (ER) | payer OTHER ==
[2021-09-02 17:33] VITALS: TEMP 98.9; BMI 42.3
[2021-09-02 18:42] LABS: BASO % 0.9 % (0-2.0); EOS % 0.5 % (0-4.5); HEMATOCRIT 44.4 % (32.4-45.2); HEMOGLOBIN 14.2 GM/dL (10.7-15.3); LYMPH % 28.7 % (8-40); MCH 26.2 pg (25.7-33.7); MCHC 32.1 g/dl (32.0-36.0); MEAN CELL VOLUME 81.7 fl (80-96); MEAN PLT VOLUME 10.6 fl (7.5-11.1); MONO % 9.9 % (3.8-10.2); PLATELET COUNT 116 10^3/uL (134-434); RBC 5.43 M/mm3 (3.60-5.2); RDW 24.2 % (11.6-15.6); VENOUS BASE EXCESS -0.9 mmol/L (-2-2); VENOUS O2 SATURATION 97.3 % (70-80); VENOUS PCO2 41.6 mmHg (38-52); VENOUS PH 7.382 (7.310-7.410); WHITE BLOOD COUNT 4.8 K/mm3 (4.0-10.0)
[2021-09-02 19:03] LABS: ANISOCYTOSIS 2+; MACROCYTOSIS 0; TEAR DROP CELLS 1+
[2021-09-02 19:09] LABS: CHLORIDE 92 mmol/L (98-107); SODIUM 129 mmol/L (136-145)
[2021-09-02 19:14] LABS: ALBUMIN 3.4 g/dl (3.4-5.0); ANION GAP 12 MMOL/L (8-16); BLOOD UREA NITROGEN 10.2 mg/dL (7-18); CALCIUM 9.6 mg/dL (8.5-10.1); CO2 25 mmol/L (21-32)
[2021-09-02 19:17] LABS: CREATININE 1.1 mg/dL (0.55-1.3); SGOT/AST 30 U/L (15-37); SGPT/ALT 23 U/L (13-61)
[2021-09-02 19:18] LABS: BILIRUBIN,TOTAL 0.4 mg/dL (0.2-1)
[2021-09-02 19:19] LABS: TOT PROT 7.1 g/dl (6.4-8.2)
[2021-09-02 19:20] LABS: ALK PHOS 121 U/L (45-117)
[2021-09-02 19:55] LABS: GLUCOSE,RANDOM 548 mg/dL (74-106)
[2021-09-02] MEDS ORDERED: INSULIN REGULAR HUMAN 100 UNITS/ML *VIAL SQ ONE ×2 (19:57→23:25)
[2021-09-02] MEDS ORDERED: INSULIN REGULAR HUMAN 100 UNITS/ML *VIAL ONE (20:15)
[2021-09-02 20:51] LABS: PH,URINE 5.5 (5.0-8.0); URINE APPEARANCE CLEAR; URINE BILIRUBIN NEGATIVE (NEGATIVE); URINE COLOR YELLOW; URINE GLUCOSE (UA) 3+ (NEGATIVE); URINE KETONE 1+ (NEGATIVE); URINE LEUK ESTERASE NEGATIVE (NEGATIVE); URINE NITRITE NEGATIVE (NEGATIVE); URINE PROTEIN NEGATIVE (NEGATIVE); URINE UROBILINOGEN 0.2 mg/dL (0.2-1.0)
[2021-09-02] MEDS ORDERED: glipiZIDE 5 MG TABLET (FP) PO ONE (21:56)
[2021-09-02] MEDS ORDERED: glipiZIDE 5 MG TABLET (FP) ONE (22:00)
[2021-09-03 00:26] VITALS: BP 129/92; PULSE 86
== END 2021-09-03 00:57 | disposition home or self-care (01) ==
LOC: JER 17:13
DX: R73.9 Hyperglycemia, unspecified (principal)
CPT/HCPCS: 36415; 71045-TC-FY; 80053; 81003; 82010; 82803; 82962; 85025; 87077; 87086; 93005; 93010; 99285-25

== ENCOUNTER 2023-04-16 17:13 | Inpatient (IN) | payer OTHER ==
[2023-04-16] MEDS ORDERED: ACETAMINOPHEN 1000 MG/100 ML BAG IVPB ONE (17:58)
[2023-04-16] MEDS ORDERED: ACETAMINOPHEN INJECTION 100 ML IVPB ONE (18:20)
[2023-04-16 18:58] LABS: BASO % 0.6 % (0-2.0); EOS % 0.6 % (0-4.5); HEMOGLOBIN 13.5 GM/dL (10.7-15.3); LYMPH % 23.2 % (8-40); MCHC 32.9 g/dl (32.0-36.0); MEAN PLT VOLUME 8.4 fl (7.5-11.1); MONO % 7.4 % (3.8-10.2); NEUT % 68.2 % (42.8-82.8); PLATELET COUNT 208 10^3/uL (134-434); RDW 19.9 % (11.6-15.6); WHITE BLOOD COUNT 6.7 K/mm3 (4.0-10.0)
[2023-04-16 19:03] LABS: INR 1.35 (0.83-1.09); PROTHROMBIN TIME (PATIENT) 15.6 SEC (9.7-13.0)
[2023-04-16 19:05] LABS: ACTIVATED PTT 36.1 SECONDS (25.2-36.5)
[2023-04-16] MEDS ORDERED: FAMOTIDINE 20 MG/50 ML IVPB 20 MG/50 ML MG IVPB ONE ×2 (19:07→19:28)
[2023-04-16] MEDS ORDERED: MAG HYDROX/AL HYDROX/SIMETH 30 ML UNIT-DOSE CUP PO ONE (19:07)
[2023-04-16 19:12] LABS: POTASSIUM 4.1 mmol/L (3.5-5.1)
[2023-04-16 19:15] LABS: ALBUMIN 3.2 g/dl (3.4-5.0); CALCIUM 9.4 mg/dL (8.5-10.1); MAGNESIUM 1.8 mg/dL (1.8-2.4)
[2023-04-16 19:16] LABS: BLOOD UREA NITROGEN 10.5 mg/dL (7-18)
[2023-04-16 19:18] LABS: CREATININE 1.2 mg/dL (0.55-1.3)
[2023-04-16 19:20] LABS: BILIRUBIN,TOTAL 0.9 mg/dL (0.2-1); TOT PROT 7.8 g/dl (6.4-8.2)
[2023-04-16] MEDS ORDERED: MAG HYDROX/AL HYDROX/SIMETH 30 ML UNIT-DOSE CUP ONE (19:28)
[2023-04-16] MEDS ORDERED: SODIUM CHLORIDE 0.9% 500 ML INFUS.BAG IV ONE (19:51)
[2023-04-16 20:11] LABS: EPI CELLS >36 /uL (0-25.1); HYALINE CASTS 5 /uL (0-3.1); URINE APPEARANCE CLEAR; URINE BACTERIA 107 /uL (0-1359); URINE BILIRUBIN 1+ (NEGATIVE); URINE COLOR DK YELLOW; URINE GLUCOSE (UA) NEGATIVE (NEGATIVE); URINE KETONE TRACE (NEGATIVE); URINE LEUK ESTERASE 1+ (NEGATIVE); URINE NITRITE NEGATIVE (NEGATIVE); URINE PROTEIN 1+ (NEGATIVE); URINE RBC 34 /uL (0-23.9); URINE WBC 33 /uL (0-25.8)
[2023-04-17] MEDS ORDERED: ACETAMINOPHEN 1000 MG/100 ML BAG IVPB PRN (04:00)
[2023-04-17] MEDS ORDERED: SODIUM CHLORIDE 1,000 ML IV SCH (04:15)
[2023-04-17 05:26] LABS: CHOLESTEROL 206 mg/dL (50-200)
[2023-04-17 05:28] LABS: LDL CHOLESTEROL (ONLY SJRH) 140 mg/dL (5-100)
[2023-04-17 05:29] LABS: HDL CHOLESTEROL 58 mg/dL (40-60)
[2023-04-17] MEDS ORDERED: ALBUTEROL SO4 HFA INHALER IH PRN (06:32)
[2023-04-17] MEDS ORDERED: ALBUTEROL SO4 0.083% IH SOL 2.5 MG/3 ML VIAL.NEB. NEB PRN (06:32)
[2023-04-17] MEDS: INSULIN SLIDING SCALE (NOVOLOG) 1 VIAL SQ SCH ×4 (07:36→23:25)
[2023-04-17 07:46] LABS: HEMATOCRIT 41.1 % (32.4-45.2); MCH 26.4 pg (25.7-33.7); MCHC 31.5 g/dl (32.0-36.0); MEAN CELL VOLUME 83.8 fl (80-96); MEAN PLT VOLUME 9.1 fl (7.5-11.1); PLATELET COUNT 174 10^3/uL (134-434); RBC 4.91 M/mm3 (3.60-5.2); RDW 20.3 % (11.6-15.6); WHITE BLOOD COUNT 4.4 K/mm3 (4.0-10.0)
[2023-04-17 08:26] LABS: POTASSIUM 3.2 mmol/L (3.5-5.1)
[2023-04-17 08:29] LABS: MAGNESIUM 1.9 mg/dL (1.8-2.4)
[2023-04-17 08:31] LABS: BLOOD UREA NITROGEN 7.4 mg/dL (7-18)
[2023-04-17 08:33] LABS: CREATININE 0.9 mg/dL (0.55-1.3)
[2023-04-17 08:34] LABS: BILIRUBIN,DIRECT 0.2 mg/dL (0.0-0.2); TOT PROT 7.2 g/dl (6.4-8.2)
[2023-04-17 08:37] LABS: BILIRUBIN,TOTAL 0.7 mg/dL (0.2-1)
[2023-04-17] MEDS: APIXABAN 5 MG TABLET PO SCH ×2 (10:45→23:12)
[2023-04-17] MEDS: FOLIC ACID 1 MG TABLET (FP) PO SCH (10:45)
[2023-04-17] MEDS: VITAMIN B COMPLEX W/C COMBO TABLET (FP) PO SCH (10:46)
[2023-04-17] MEDS: NIFEdipine E.R. 30 MG TABLET PO SCH (10:46)
[2023-04-17] MEDS: ASCORBIC ACID 500 MG TABLET (FP) PO SCH (10:46)
[2023-04-17] MEDS: CALCIUM 500MG/VIT-D 200 UNITS COMBO TABLET (FP) PO SCH (10:46)
[2023-04-17] MEDS: CHOLECALCIFEROL (VIT D3) 1,000 UNIT (25 MCG) TABLET PO SCH (10:46)
[2023-04-17] MEDS: MULTIVITAMINS (DAILY MVI) TABLET (FP) PO SCH (10:46)
[2023-04-17] MEDS: ENALAPRIL MALEATE 10 MG TABLET PO SCH (10:46)
[2023-04-17] MEDS ORDERED: LACTATED RINGERS SOLUTION 1,000 ML/1,000 ML INFUS.BAG IV SCH (14:15)
[2023-04-17] MEDS: POLYETHYLENE GLYCOL (HEALTHYLAX) 3350 17 GM PACKET PO SCH (23:11)
[2023-04-17] MEDS: SERTRALINE HCL 50 MG TABLET (FP) PO SCH (23:12)
[2023-04-17] MEDS: ATORVASTATIN CA 20 MG TABLET (FP) PO SCH (23:12)
[2023-04-18 00:12] VITALS: BMI 36.9
[2023-04-18] MEDS: INSULIN SLIDING SCALE (NOVOLOG) 1 VIAL SQ SCH ×4 (06:32→21:44)
[2023-04-18] MEDS ORDERED: LACTATED RINGERS SOLUTION 1,000 ML/1,000 ML INFUS.BAG IV SCH (09:43)
[2023-04-18] MEDS: VITAMIN B COMPLEX W/C COMBO TABLET (FP) PO SCH (10:51)
[2023-04-18] MEDS: CHOLECALCIFEROL (VIT D3) 1,000 UNIT (25 MCG) TABLET PO SCH (10:51)
[2023-04-18] MEDS: MULTIVITAMINS (DAILY MVI) TABLET (FP) PO SCH (10:51)
[2023-04-18] MEDS: NIFEdipine E.R. 30 MG TABLET PO SCH (10:51)
[2023-04-18] MEDS: CALCIUM 500MG/VIT-D 200 UNITS COMBO TABLET (FP) PO SCH (10:51)
[2023-04-18] MEDS: ASCORBIC ACID 500 MG TABLET (FP) PO SCH (10:51)
[2023-04-18] MEDS: FOLIC ACID 1 MG TABLET (FP) PO SCH (10:51)
[2023-04-18] MEDS: APIXABAN 5 MG TABLET PO SCH ×2 (10:51→21:42)
[2023-04-18] MEDS: ENALAPRIL MALEATE 10 MG TABLET PO SCH (10:51)
[2023-04-18] MEDS: POLYETHYLENE GLYCOL (HEALTHYLAX) 3350 17 GM PACKET PO SCH ×2 (11:00→21:44)
[2023-04-18] MEDS: FLUTICASONE/UMECLIDIN/VILANTER(100-62.5-25 TRELEGY ELLIPTA) INAHLER IH SCH (11:50)
[2023-04-18] MEDS ORDERED: oxyCODONE HCL 5 MG TABLET PO PRN (15:09)
[2023-04-18] MEDS ORDERED: FUROSEMIDE 40 MG/4 ML INJECTABLE VIAL IVPUSH ONE (15:20)
[2023-04-18] MEDS ORDERED: POTASSIUM CHLORIDE ORAL LIQUID 20 MEQ/15 ML PO ONE (20:10)
[2023-04-18] MEDS ORDERED: MAGNESIUM SULF 50% (8.12 MEQ/2 ML-1 GM VIAL) IVPB ONE (20:12)
[2023-04-18] MEDS: KCL 10 MEQ IVPB 10 MEQ/100 ML INFUS.BAG IVPB SCH (21:42)
[2023-04-18] MEDS: ATORVASTATIN CA 20 MG TABLET (FP) PO SCH (21:44)
[2023-04-18] MEDS: SERTRALINE HCL 50 MG TABLET (FP) PO SCH (21:45)
[2023-04-19] MEDS: KCL 10 MEQ IVPB 10 MEQ/100 ML INFUS.BAG IVPB SCH ×2 (00:50→03:28)
[2023-04-19] MEDS: INSULIN SLIDING SCALE (NOVOLOG) 1 VIAL SQ SCH ×4 (06:38→21:42)
[2023-04-19 08:14] LABS: BASO % 0.3 % (0-2.0); EOS % 1.6 % (0-4.5); HEMATOCRIT 38.5 % (32.4-45.2); HEMOGLOBIN 12.7 GM/dL (10.7-15.3); LYMPH % 25.1 % (8-40); MCH 27.3 pg (25.7-33.7); MCHC 32.9 g/dl (32.0-36.0); MEAN CELL VOLUME 82.8 fl (80-96); MEAN PLT VOLUME 8.9 fl (7.5-11.1); MONO % 8.6 % (3.8-10.2); NEUT % 64.4 % (42.8-82.8); PLATELET COUNT 159 10^3/uL (134-434); RBC 4.65 M/mm3 (3.60-5.2); RDW 20.1 % (11.6-15.6); WHITE BLOOD COUNT 4.5 K/mm3 (4.0-10.0)
[2023-04-19 08:45] LABS: POTASSIUM 4.1 mmol/L (3.5-5.1)
[2023-04-19 08:46] LABS: CALCIUM 8.7 mg/dL (8.5-10.1)
[2023-04-19 08:47] LABS: ALBUMIN 3.1 g/dl (3.4-5.0); BLOOD UREA NITROGEN 8.1 mg/dL (7-18); MAGNESIUM 2.2 mg/dL (1.8-2.4)
[2023-04-19 08:50] LABS: CREATININE 0.7 mg/dL (0.55-1.3); PHOSPHOROUS 3.4 mg/dL (2.5-4.9)
[2023-04-19 08:51] LABS: TOT PROT 7.1 g/dl (6.4-8.2)
[2023-04-19 08:52] LABS: BILIRUBIN,TOTAL 0.6 mg/dL (0.2-1)
[2023-04-19] MEDS: APIXABAN 5 MG TABLET PO SCH ×2 (09:07→21:42)
[2023-04-19] MEDS: ASCORBIC ACID 500 MG TABLET (FP) PO SCH (09:07)
[2023-04-19] MEDS: ENALAPRIL MALEATE 10 MG TABLET PO SCH (09:07)
[2023-04-19] MEDS: MULTIVITAMINS (DAILY MVI) TABLET (FP) PO SCH (09:07)
[2023-04-19] MEDS: NIFEdipine E.R. 30 MG TABLET PO SCH (09:07)
[2023-04-19] MEDS: FOLIC ACID 1 MG TABLET (FP) PO SCH (09:07)
[2023-04-19] MEDS: CHOLECALCIFEROL (VIT D3) 1,000 UNIT (25 MCG) TABLET PO SCH (09:08)
[2023-04-19] MEDS: CALCIUM 500MG/VIT-D 200 UNITS COMBO TABLET (FP) PO SCH (09:08)
[2023-04-19] MEDS: VITAMIN B COMPLEX W/C COMBO TABLET (FP) PO SCH (09:08)
[2023-04-19] MEDS: POLYETHYLENE GLYCOL (HEALTHYLAX) 3350 17 GM PACKET PO SCH ×2 (09:15→21:42)
[2023-04-19] MEDS: FLUTICASONE/UMECLIDIN/VILANTER(100-62.5-25 TRELEGY ELLIPTA) INAHLER IH SCH (09:16)
[2023-04-19] MEDS: PHENYLEPHRINE HCL/COCOA BUTTER 1 EACH SUPP.RECT RC SCH ×2 (11:15→21:42)
[2023-04-19] MEDS: ATORVASTATIN CA 20 MG TABLET (FP) PO SCH (21:42)
[2023-04-19] MEDS: SERTRALINE HCL 50 MG TABLET (FP) PO SCH (21:42)
[2023-04-20 03:43] VITALS: RESP 20
[2023-04-20] MEDS: INSULIN SLIDING SCALE (NOVOLOG) 1 VIAL SQ SCH ×2 (06:07→12:18)
[2023-04-20 07:37] LABS: BASO % 0.5 % (0-2.0); EOS % 2.1 % (0-4.5); HEMATOCRIT 39.8 % (32.4-45.2); HEMOGLOBIN 12.6 GM/dL (10.7-15.3); LYMPH % 30.9 % (8-40); MCHC 31.8 g/dl (32.0-36.0); MEAN CELL VOLUME 84.9 fl (80-96); MEAN PLT VOLUME 8.7 fl (7.5-11.1); NEUT % 58.5 % (42.8-82.8); PLATELET COUNT 174 10^3/uL (134-434); RBC 4.68 M/mm3 (3.60-5.2); RDW 20.1 % (11.6-15.6); WHITE BLOOD COUNT 4.6 K/mm3 (4.0-10.0)
[2023-04-20 07:52] LABS: POTASSIUM 4.1 mmol/L (3.5-5.1)
[2023-04-20 07:55] LABS: ALBUMIN 3.2 g/dl (3.4-5.0); BLOOD UREA NITROGEN 9.9 mg/dL (7-18)
[2023-04-20 07:57] LABS: CALCIUM 8.8 mg/dL (8.5-10.1)
[2023-04-20 07:58] LABS: CREATININE 0.8 mg/dL (0.55-1.3); MAGNESIUM 1.8 mg/dL (1.8-2.4); PHOSPHOROUS 3.9 mg/dL (2.5-4.9)
[2023-04-20 07:59] LABS: BILIRUBIN,TOTAL 0.7 mg/dL (0.2-1); TOT PROT 7.5 g/dl (6.4-8.2)
[2023-04-20] MEDS: ENALAPRIL MALEATE 10 MG TABLET PO SCH (10:24)
[2023-04-20] MEDS: APIXABAN 5 MG TABLET PO SCH (10:24)
[2023-04-20] MEDS: MULTIVITAMINS (DAILY MVI) TABLET (FP) PO SCH (10:24)
[2023-04-20] MEDS: CALCIUM 500MG/VIT-D 200 UNITS COMBO TABLET (FP) PO SCH (10:24)
[2023-04-20] MEDS: ASCORBIC ACID 500 MG TABLET (FP) PO SCH (10:24)
[2023-04-20] MEDS: NIFEdipine E.R. 30 MG TABLET PO SCH (10:24)
[2023-04-20] MEDS: FOLIC ACID 1 MG TABLET (FP) PO SCH (10:24)
[2023-04-20] MEDS: CHOLECALCIFEROL (VIT D3) 1,000 UNIT (25 MCG) TABLET PO SCH (10:24)
[2023-04-20] MEDS: PHENYLEPHRINE HCL/COCOA BUTTER 1 EACH SUPP.RECT RC SCH (10:25)
[2023-04-20] MEDS: FLUTICASONE/UMECLIDIN/VILANTER(100-62.5-25 TRELEGY ELLIPTA) INAHLER IH SCH (10:25)
[2023-04-20] MEDS: POLYETHYLENE GLYCOL (HEALTHYLAX) 3350 17 GM PACKET PO SCH (10:25)
[2023-04-20 11:04] VITALS: BP 146/77; PULSE 77; TEMP 97.7
[2023-04-20] MEDS: VITAMIN B COMPLEX W/C COMBO TABLET (FP) PO SCH (11:50)
[2023-04-21 18:10] LABS: CK-MM 100 % (97-100)
== END 2023-04-20 15:01 | disposition home or self-care (01) | DRG 282 ==
LOC: JER 17:13 → JERBED 23:15 → J4W 04-17 20:34
PROVIDERS: ADMIT Internal Medicine; ATTEND Internal Medicine
DX: K85.90 Acute pancreatitis without necrosis or infection, unspecified (principal); I11.0 Hypertensive heart disease with heart failure; I50.33 Acute on chronic diastolic (congestive) heart failure; I31.39 Other pericardial effusion (noninflammatory); E11.40 Type 2 diabetes mellitus with diabetic neuropathy, unspecified; I24.89 Other forms of acute ischemic heart disease; K21.9 Gastro-esophageal reflux disease without esophagitis; I27.20 Pulmonary hypertension, unspecified; I48.91 Unspecified atrial fibrillation; D25.9 Leiomyoma of uterus, unspecified; I48.92 Unspecified atrial flutter; J44.9 Chronic obstructive pulmonary disease, unspecified; E78.5 Hyperlipidemia, unspecified; E28.2 Polycystic ovarian syndrome; F32.A Depression, unspecified; E66.9 Obesity, unspecified; Z68.39 Body mass index [BMI] 39.0-39.9, adult
CPT/HCPCS: 0241U-QW; 36415; 71045-TC-FY; 71275-TC; 74177-TC; 74181-TC; 76705-TC; 76775-TC; 80053; 80061; 80076; 81003; 82550; 82552; 82553; 82787; 82962; 83036; 83690; 83735; 84100; 84478; 84484; 85025; 85027; 85379; 85610; 85730; 86038; 86301; 87086; 93005; 93010; 93306-TC; 97116-GP; 97161-GP; 99285-25; Q9967